=== PATIENT | male | born 1960 | race Caucasian/White ===

== ENCOUNTER 2017-02-07 20:31 | Emergency (ER) | payer SELFPAY ==
[~2017-02-07] VITALS: Ht 172.7 cm; Wt 90.7 kg
[~2017-02-07 20:31] MED LIST: ACYC200C PO; CYCL10TA9 PO; NAPR-243 PO; OXYC-12 PO; PRD20T PO; SULF1TAB35 PO; TRM50T PO
--- NOTE | 2017-02-07 21:00 | ED General ---
General Chief Complaint: General Problems/Pain Stated Complaint: GENERAL SWELLING Nursing Triage Note: patient reports he has been swelling in his feet and hands for a month Nursing Sepsis Screen: No Definite Risk Source of Information: Patient Exam Limitations: No Limitations History of Present Illness Time Seen by Provider: 20:59 Initial Comments Ambulatory to ER with reports of a 3 month history of swelling to the hands and the feet. He has not sought care for this. States that he hasn't seen his physician in several years because he is homeless. He is also an alcoholic he states drinking about a 12-24 pack daily. He also smokes one and 2 packs of cigarettes per day. Reports chronic shortness of breath and wheezing. Timing/Duration: Getting Worse Severity: Moderate Associated Systoms: Cough Allergies and Home Medications Allergies Coded Allergies: NKANo Known Allergies (Unverified Allergy, Mild, 09/13/09) Home Medications No Active Prescriptions or Reported Meds Constitutional: see HPI, No chills, No fever EENTM: see HPI Respiratory: no symptoms reported Cardiovascular: no symptoms reported Genitourinary: no symptoms reported Musculoskeletal: no symptoms reported Skin: no symptoms reported Psychiatric/Neurological: No Symptoms Reported Hematologic/Lymphatic: No Symptoms Reported Immunological/Allergic: no symptoms reported Past Dgvwtjr-Tladac-Sxgwki Hx Patient Social History Alcohol Use: Regular Use Recreational Drug Use: Yes Drug of Choice: THC Smoking Status: Current Everyday Smoker Type Used: Cigarettes Recent Foreign Travel: No Contact w/Someone Who Travel: No Recent Infectious Disease Expo: No Seasonal Allergies Seasonal Allergies: No Surgeries HX Surgeries: No Respiratory Hx Respiratory Disorders: No Cardiovascular Hx Cardiac Disorders: No Cardiac Disorders: Hypertension Neurological Hx Neurological Disorders: No Reproductive System Hx Reproductive Disorders: No Genitourinary Hx Genitourinary Disorders: No Gastrointestinal Hx Gastrointestinal Disorders: No Musculoskeletal Hx Musculoskeletal Disorders: No Endocrine Hx Endocrine Disorders: No HEENT HX ENT Disorders: No Cancer Hx Cancer: No Psychosocial Hx Psychiatric Problems: No Integumentary HX Skin/Integumentary Disorder: No Blood Transfusions Hx Blood Disorders: No Family Medical History Significant Family History: No Pertinent Family Hx Physical Exam Vital Signs Vital Sign - Last 12Hours 02/07/17 20:42 Temp 98.2 Pulse 97 Resp 18 B/P (MAP) 144/123 Pulse Ox 94 O2 Delivery Room Air Capillary Refill : Less Than 3 Seconds General Appearance: No Apparent Distress, WD/WN Eyes: Bilateral Eye EOMI, Bilateral Eye Normal Inspection, Bilateral Eye PERRL HEENT: PERRL/EOMI, TMs Normal Neck: Full Range of Motion, Normal Inspection Respiratory: No Accessory Muscle Use, No Respiratory Distress, Decreased Breath Sounds, Wheezing Cardiovascular: Regular Rate, Rhythm, Normal Peripheral Pulses Gastrointestinal: Normal Bowel Sounds, Non Tender, Soft Extremity: Normal Capillary Refill, Normal Inspection, Swelling (3+ swelling to the proximal tibias bilateral lower extremities. There is also some puffiness of the hands.) Neurologic/Psychiatric: Alert, Oriented x3, No Motor/Sensory Deficits Skin: Warm/Dry Progress/Results/Core Measures Results/Orders Lab Results Laboratory Tests Test 02/07/17 20:53 02/07/17 21:58 Range/Units White Blood Count 7.6 4.3-11.0 10^3/uL Red Blood Count 4.51 4.35-5.85 10^6/uL Hemoglobin 14.8 13.3-17.7 G/DL Hematocrit 44 40-54 % Mean Corpuscular Volume 97 80-99 FL Mean Corpuscular Hemoglobin 33 25-34 PG Mean Corpuscular Hemoglobin Concent 34 32-36 G/DL Red Cell Distribution Width 14.4 10.0-14.5 % Platelet Count 173 130-400 10^3/uL Mean Platelet Volume 9.4 7.4-10.4 FL Neutrophils (%) (Auto) 28 L 42-75 % Lymphocytes (%) (Auto) 54 H 12-44 % Monocytes (%) (Auto) 14 H 0-12 % Eosinophils (%) (Auto) 4 0-10 % Basophils (%) (Auto) 0 0-10 % Neutrophils # (Auto) 2.1 1.8-7.8 X 10^3 Lymphocytes # (Auto) 4.1 H 1.0-4.0 X 10^3 Monocytes # (Auto) 1.1 H 0.0-1.0 X 10^3 Eosinophils # (Auto) 0.3 0.0-0.3 10^3/uL Basophils # (Auto) 0.0 0.0-0.1 10^3/uL Neutrophils % (Manual) 21 % Lymphocytes % (Manual) 63 % Monocytes % (Manual) 10 % Eosinophils % (Manual) 3 % Basophils % (Manual) 0 % Metamyelocytes % 1 % Band Neutrophils 2 % Blood Morphology Comment NORMAL Sodium Level 136 135-145 MMOL/L Potassium Level 3.5 L 3.6-5.0 MMOL/L Chloride Level 104 98-107 MMOL/L Carbon Dioxide Level 18 L 21-32 MMOL/L Anion Gap 14 5-14 MMOL/L Blood Urea Nitrogen 5 L 7-18 MG/DL Creatinine 0.83 0.60-1.30 MG/DL Estimat Glomerular Filtration Rate > 60 BUN/Creatinine Ratio 6 Glucose Level 98 70-105 MG/DL Calcium Level 8.6 8.5-10.1 MG/DL Total Bilirubin 0.4 0.1-1.0 MG/DL Aspartate Amino Transf (AST/SGOT) 47 H 5-34 U/L Alanine Aminotransferase (ALT/SGPT) 31 0-55 U/L Alkaline Phosphatase 87 40-136 U/L Troponin I < 0.30 <0.30 NG/ML B-Type Natriuretic Peptide 30.2 <100.0 PG/ML Total Protein 8.1 6.4-8.2 GM/DL Albumin 3.8 3.2-4.5 GM/DL Thyroid Stimulating Hormone (TSH) 2.86 0.35-4.94 UIU/ML Serum Alcohol 263 H <10 MG/DL My Orders Orders - WILLIAM ALLEN 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 [employer] INSPECTING Cbc With Automated Diff (02/07/17 20:53) Comprehensive Metabolic Panel (02/07/17 20:53) Alcohol (02/07/17 20:53) Protime With Inr (02/07/17 20:53) Drug Screen Stat (Urine) (02/07/17 20:53) Ekg Tracing (02/07/17 20:53) Troponin I (02/07/17 20:53) Chest 1 View, Ap/Pa Only (02/07/17 20:53) Thyroid Stimulating Hormone (02/07/17 20:53) Manual Differential (02/07/17 20:53) Albuterol/Ipra Inhalation Soln (Duoneb I (02/07/17 21:15) Svn Sm Volume Nebulizer Rt-Rfs (02/07/17 21:14) BNP (02/07/17 21:34) Medications Given in ED Current Medications Medications Dose Ordered Sig/[place] Route Start Time Stop Time Status Last Admin Dose Admin Albuterol/ Ipratropium 3 ml ONCE ONCE INH 02/07/17 21:15 02/07/17 21:16 DC 02/07/17 21:47 3 ML Vital Signs/I&O Vital Sign - Last 12Hours 02/07/17 02/07/17 20:42 21:48 Temp 98.2 Pulse 97 Resp 18 B/P (MAP) 144/123 Pulse Ox 94 95 O2 Delivery Room Air Room Air Blood Pressure Mean: 130 Diagnostic Imaging Diagonstic Imaging: Xray Plain Films/CT/US/NM/MRI: chest Comments NAME: ERYN WOMACK MED REC#: [id number] PT STATUS: REG ER : 1960 PHYSICIAN: WILLIAM ALLEN APRN ADMIT DATE: 02/07/17/ER Draft Date of Exam:02/07/17 CHEST 1 VIEW, AP/PA ONLY INDICATION: Swelling in the hands and feet FINDINGS: The heart size is unremarkable. There is no vascular congestion. There is no evidence for pulmonary edema. No effusion or pneumothorax. No focal consolidation. IMPRESSION: No failure pattern or acute abnormalities Dictated on workstation # [id number] Dict: 02/07/172114 Trans: 02/07/172120 [facility] [id number] Interpreted by: LEDY BAER Electronically signed by: Departure Impression Impression: Primary Impression: Edema Additional Impression: Alcoholism Disposition: 01 HOME, SELF-CARE Condition: Stable Departure-Patient Inst. Decision time for Depature: 22:17 Referrals: NO,LOCAL PHYSICIAN (PCP) Primary Care Physician Patient Instructions: NO INSTRUCTIONS GIVEN Add. Discharge Instructions: 1. Follow-up with your doctor next week 2. All discharge instructions reviewed with patient and/or family. Voiced understanding. Scripts No Active Prescriptions or Reported Meds WILLIAM ALLEN APRN Feb 07, 2017 21:00
[2017-02-07 21:03] LABS: BASOPHILS % (AUTO) 0 % (0-10); EOSINOPHILS # (AUTO) 0.3 10^3/uL (0.0-0.3); EOSINOPHILS % (AUTO) 4 % (0-10); LYMPHOCYTES # (AUTO) 4.1 X 10^3 (1.0-4.0); LYMPHOCYTES % (AUTO) 54 % (12-44); MEAN CORPUSCULAR HEMOGLOBIN 33 PG (25-34); MEAN CORPUSCULAR HGB CONC 34 G/DL (32-36); MEAN CORPUSCULAR VOLUME 97 FL (80-99); MEAN PLATELET VOLUME 9.4 FL (7.4-10.4); MONOCYTES # (AUTO) 1.1 X 10^3 (0.0-1.0); MONOCYTES % (AUTO) 14 % (0-12); NEUTROPHILS # (AUTO) 2.1 X 10^3 (1.8-7.8); NEUTROPHILS % (AUTO) 28 % (42-75); PLATELET COUNT 173 10^3/uL (130-400); RED BLOOD COUNT 4.51 10^6/uL (4.35-5.85); RED CELL DISTRIBUTION WIDTH 14.4 % (10.0-14.5); WHITE BLOOD COUNT 7.6 10^3/uL (4.3-11.0)
[2017-02-07 21:12] LABS: PROTHROMBIN TIME PATIENT 12.9 SEC (12.2-14.7)
[2017-02-07] MEDS ORDERED: RT-ALBUTEROL/IPRATROPIUM 3 ML (DUONEB) VIAL INH ONE (21:15)
--- NOTE | 2017-02-07 21:21 | Diagnostic Imaging Report ---
INDICATION: Swelling in the hands and feet FINDINGS: The heart size is unremarkable. There is no vascular congestion. There is no evidence for pulmonary edema. No effusion or pneumothorax. No focal consolidation. IMPRESSION: No failure pattern or acute abnormalities Dictated by: Dictated on workstation # [id number]
[2017-02-07 21:22] LABS: ALANINE AMINOTRANSFERASE 31 U/L (0-55); ALBUMIN 3.8 GM/DL (3.2-4.5); ALCOHOL 263 MG/DL (<10); ANION GAP 14 MMOL/L (5-14); ASPARTATE AMINO TRANSFERASE 47 U/L (5-34); BILIRUBIN,TOTAL 0.4 MG/DL (0.1-1.0); BLOOD UREA NITROGEN 5 MG/DL (7-18); BUN/CREATININE RATIO 6; CALCIUM 8.6 MG/DL (8.5-10.1); CARBON DIOXIDE 18 MMOL/L (21-32); CHLORIDE 104 MMOL/L (98-107); CREATININE SERUM 0.83 MG/DL (0.60-1.30); GFR ESTIMATED > 60; GLUCOSE 98 MG/DL (70-105); POTASSIUM 3.5 MMOL/L (3.6-5.0); SODIUM 136 MMOL/L (135-145); TOTAL PROTEIN 8.1 GM/DL (6.4-8.2)
[2017-02-07 21:24] LABS: BAND NEUTROPHILS 2 %; BASOPHILS % (MANUAL) 0 %; EOSINOPHILS % (MANUAL) 3 %; LYMPHOCYTES % (MANUAL) 63 %; METAMYELOCYTES % 1 %; NEUTROPHILS % (MANUAL) 21 %
[2017-02-07 21:44] LABS: THYROID STIMULATING HORMONE 2.86 UIU/ML (0.35-4.94)
[2017-02-07 21:48] LABS: TROPONIN I < 0.30 NG/ML (<0.30)
[2017-02-07 22:22] VITALS: BP 138/105
== END 2017-02-07 22:22 | disposition home or self-care (01) ==
LOC: EDUNIT# 20:31 → ER 20:35
DX: R60.0 Localized edema (principal); F10.20 Alcohol dependence, uncomplicated; I10 Essential (primary) hypertension; F17.210 Nicotine dependence, cigarettes, uncomplicated
CPT/HCPCS: 36415; 71010; 80053; 80306; 80320; 83880; 84443; 84484; 85007; 85027; 85610; 93005; 94640

== ENCOUNTER 2018-03-29 05:28 | Outpatient (CLI) | payer SELFPAY ==
[~2018-03-29] VITALS: Ht 172.7 cm; Wt 102.5 kg
[2018-03-29] MEDS ORDERED: PRED5TAB PO (10:55)
[2018-03-29] MEDS ORDERED: METH2.5T PO (10:55)
[2018-03-29] MEDS ORDERED: FOLI0.8T PO (10:55)
[2018-03-31] MEDS ORDERED: HYDR-3820 PO (10:49)
== END 2018-03-29 12:41 | disposition home or self-care (01) ==
LOC: PREOP 05:28
PROVIDERS: ATTEND Surgery
DX: Z01.818 Encounter for other preprocedural examination (principal)

== ENCOUNTER 2018-03-31 08:06 | Day surgery (SDC) | payer SELFPAY ==
[~2018-03-31] VITALS: Ht 172.7 cm; Wt 102.5 kg
[~2018-03-31 08:06] MED LIST changes: +FOLI0.8T PO; +METH2.5T PO; +PRED5TAB PO
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
--- OUTSIDE RECORDS SUMMARY | 2018-03-31 08:10 | XMS REPORT ---
Author Author EDEN HOWELL Organization [facility] Address [address] [place] [address] Care Team Providers Care Financial Analyst Name Role Phone EDEN HOWELL Unavailable PROBLEMS Type Condition ICD9-CM Code OJS82-YM Code Onset Dates Condition Status SNOMED Code Problem Arthritis M19.90 Active 0862420 Problem Rheumatoid arthritis involving multiple sites with positive rheumatoid factor M05.79 Active 469994785 Problem Alcoholism F10.20 Active 0749297 Problem Hypertension I10 Active 17642165 Problem Osteoarthritis M19.90 Active 888170105 ALLERGIES No Information ENCOUNTERS Encounter Location Date Diagnosis [facility] [id number] [place] [address] 47955- 4841 Dec, Rheumatoid arthritis involving multiple sites with positive rheumatoid factor M05.79 [facility] [id number] [place] [address] 89587- 3247 Dec, Arthritis M19.90 [facility] [id number] [place] [address] 99533- 2375 November, [facility] [id number] [place] [address] 36956- 3881 Oct, [facility] [id number] [place] [address] 56847- 8739 Sep, [facility] [id number] [place] [address] 18521- 6198 Aug, Rheumatoid arthritis involving multiple sites with positive rheumatoid factor M05.79 [facility] [id number] [place] [address] 34137- 0095 Jul, Rheumatoid arthritis involving multiple sites with positive rheumatoid factor M05.79 and Alcoholism F10.20 [facility] [id number] [place] [address] 41250- 2884 Jun, [facility] [id number] [place] [address] 08992- 9946 May, Alcoholism F10.20 ; Hypertension I10 ; Rheumatoid arthritis involving multiple sites with positive rheumatoid factor M05.79 and Encounter for immunization Z23 [place] [id number] [place] [address] 76107- 3606 Apr, Rheumatoid arthritis involving multiple sites, unspecified rheumatoid factor presence M06.9 and Hypertension I10 [place] [address] 31723- 6300 Feb, [place] [address] 05758- 4698 Feb, Hypertension I10 ; Rheumatoid arthritis involving multiple sites, unspecified rheumatoid factor presence M06.9 and Alcoholism F10.20 [facility] [id number] [place] [address] 04866 -4275 Jan, Lower extremity edema R60.0 and Cellulitis of left lower limb L03.116 [place] [id number] [place] [address] 94970- 1259 Aug, [facility] [id number] [place] [address] 38745- 2118 Aug, [place] [id number] [place] [address] 60148- 5163 Aug, Osteoarthritis M19.90 ; Hypertension I10 and Alcoholism F10.20 [facility] [id number] [place] [address] 59779- 0309 Jan, [facility] [address] 77141- 5668 Dec, Herpes zoster 053.9 [facility] [id number] [place] [address] 22698- 8293 Mar, [place] [address] 28281- 6706 Mar, [facility] [address] [facility] [id number] [place] [address]- 9356 Dec, [facility] [address] [facility] [id number] [address]- 6396 Dec, IMMUNIZATIONS No Known Immunizations SOCIAL HISTORY Never Assessed REASON FOR VISIT Rx request PLAN OF CARE VITAL SIGNS MEDICATIONS Unknown [...]
--- OUTSIDE RECORDS SUMMARY | 2018-03-31 08:10 | XMS REPORT ---
Author Author EDEN HOWELL Organization [facility] [place] Address [address] [place] [address] Care Team Providers Care Integration Lead Name Role Phone EDEN HOWELL Unavailable PROBLEMS Type Condition ICD9-CM Code GCP76-CN Code Onset Dates Condition Status SNOMED Code Problem Arthritis M19.90 Active 7207373 Problem Rheumatoid arthritis involving multiple sites with positive rheumatoid factor M05.79 Active 602218958 Problem Alcoholism F10.20 Active 5584323 Problem Hypertension I10 Active 11856748 Problem Osteoarthritis M19.90 Active 919578558 ALLERGIES No Information ENCOUNTERS Encounter Location Date Diagnosis [facility] [place] [id number] [place] [address] 20469- 6891 Jan, [facility] [place] [id number] [place] [address] 79736- 8572 Dec, Rheumatoid arthritis involving multiple sites with positive rheumatoid factor M05.79 [facility] [place] [id number] [place] [address] 32778- 5556 Dec, Arthritis M19.90 [facility] [place] [id number], [place] [address]- 2914 November, [facility] [place] [id number] [place] [address] 99171- 3105 Oct, [facility] [place] [address] [place] [address] 65396- 4817 Sep, [facility] [place] [id number] [place] [address] 59483- 9878 Aug, Rheumatoid arthritis involving multiple sites with positive rheumatoid factor M05.79 [facility] [place] [id number], [place] [address]- 4335 Jul, Rheumatoid arthritis involving multiple sites with positive rheumatoid factor M05.79 and Alcoholism F10.20 [facility] [place] [id number] [place] [address] 77851- 9518 Jun, [facility] [place] [address]- 2655 May, Alcoholism F10.20 ; Hypertension I10 ; Rheumatoid arthritis involving multiple sites with positive rheumatoid factor M05.79 and Encounter for immunization Z23 [place] [address] 86195- 9422 Apr, Rheumatoid arthritis involving multiple sites, unspecified rheumatoid factor presence M06.9 and Hypertension I10 [place] [address] 50333- 5314 Feb, [place] [address] 07768- 6580 Feb, Hypertension I10 ; Rheumatoid arthritis involving multiple sites, unspecified rheumatoid factor presence M06.9 and Alcoholism F10.20 [facility] [id number] [place] [address] 01877 -4159 Jan, Lower extremity edema R60.0 and Cellulitis of left lower limb L03.116 [place] [id number] [place] [address] 74924- 7700 Aug, [facility] [place] [id number] [place] [address] 61077- 7264 Aug, [place] [address] 90295- 2078 Aug, Osteoarthritis M19.90 ; Hypertension I10 and Alcoholism F10.20 [facility] [place] [address] 04734- 5130 Jan, [facility] [place] [address] 02127- 6351 Dec, Herpes zoster 053.9 [place] [address] 28278- 2976 Mar, [facility] [place] [address] [facility] [id number] [address]- 2546 Mar, [facility] [place] [address] [facility] [id number] [address]- 2576 Dec, [facility] [place] [address] [facility] [id number] [place] [address]- 7816 Dec, IMMUNIZATIONS No Known Immunizations SOCIAL HISTORY Never Assessed REASON FOR VISIT Repository med PLAN OF CARE VITAL SIGNS MEDICATIONS Unknown [...]
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
--- OUTSIDE RECORDS SUMMARY | 2018-03-31 08:11 | XMS REPORT | Continuity of Care Document ---
Author Author [facility] Address Unknown Phone Unavailable Allergies Active Description Code Type Severity Reaction Onset Reported/Identified Relationship to Patient Clinical Status Yes NKANo Known Allergies NKA Miscellaneous Allergy Mild N/A 09/13/2009 Medications There is no data. Problems Date Dx Coded Attending Type Code Diagnosis Diagnosed By 02/22/2014 JANELL STINSON Ot 305.00 ALCOHOL ABUSE-UNSPEC 02/22/2014 JANELL STINSON Ot 305.90 DRUG ABUSE NEC-UNSPEC 02/22/2014 JANELL STINSON Ot 338.29 OTHER CHRONIC PAIN 02/22/2014 JANELL STINSON Ot 724.2 LUMBAGO 01/12/2015 JANELL STINSON Ot 053.9 HERPES ZOSTER NOS 01/12/2015 JANELL STINSON Ot 782.1 NONSPECIF SKIN ERUPT NEC 03/02/2016 GABRIELLA FIELDS DO Ot S01.81XA LACERATION W/O FOREIGN BODY OF OTH PART 03/02/2016 GABRIELLA FIELDS DO Ot Z53.21 PROC/TRTMT NOT CRD OUT D/T PT LV BEF SEE 03/05/2016 GABRIELLA FIELDS DO Ot S01.81XA LACERATION W/O FOREIGN BODY OF OTH PART 03/05/2016 GABRIELLA FIELDS DO Ot Z53.21 PROC/TRTMT NOT CRD OUT D/T PT LV BEF SEE 02/07/2017 WILLIAM ALLEN APRN Ot F10.20 ALCOHOL DEPENDENCE, UNCOMPLICATED 02/07/2017 WILLIAM ALLEN APRN Ot F17.210 NICOTINE DEPENDENCE, CIGARETTES, UNCOMPL 02/07/2017 WILLIAM ALLEN APRN Ot I10 ESSENTIAL (PRIMARY) HYPERTENSION 02/07/2017 WILLIAM ALLEN APRN Ot M79.89 OTHER SPECIFIED SOFT TISSUE DISORDERS 02/07/2017 WILLIAM ALLEN APRN Ot R60.0 LOCALIZED EDEMA 03/29/2018 Ot Z01.818 ENCOUNTER FOR OTHER PREPROCEDURAL EXAMIN Procedures There is no data. Results Test Result Range Complete blood count (CBC) with automated white blood cell (WBC) differential - 02/07/17 20:53 Blood leukocytes automated count (number/volume) 7.6 10*3/uL 4.3-11.0 Blood erythrocytes automated count (number/volume) 4.51 10*6/uL 4.35-5.85 Venous blood hemoglobin measurement (mass/volume) 14.8 g/dL 13.3-17.7 Blood hematocrit (volume fraction) 44 % 40-54 Automated erythrocyte mean corpuscular volume 97 [foz_us] 80-99 Automated erythrocyte mean corpuscular hemoglobin (mass per erythrocyte) 33 pg 25-34 Automated erythrocyte mean corpuscular hemoglobin concentration measurement ( mass/volume) 34 g/dL 32-36 Automated erythrocyte distribution width ratio 14.4 % 10.0-14.5 Automated blood platelet count (count/volume) 173 10*3/uL 130-400 Automated blood platelet mean volume measurement 9.4 [foz_us] 7.4-10.4 Automated blood neutrophils/100 leukocytes 28 % 42-75 Automated blood lymphocytes/100 leukocytes 54 % 12-44 Blood monocytes/100 leukocytes 14 % 0-12 Automated blood eosinophils/100 leukocytes 4 % 0-10 Automated blood basophils/100 leukocytes 0 % 0-10 Blood neutrophils automated count (number/volume) 2.1 10*3 1.8-7.8 Blood lymphocytes automated count (number/volume) 4.1 10*3 1.0-4.0 Blood monocytes automated count (number/volume) 1.1 10*3 0.0-1.0 Automated eosinophil count 0.3 10*3/uL 0.0-0.3 Automated blood basophil count (count/volume) 0.0 10*3/uL 0.0-0.1 Comprehensive metabolic panel - 02/07/17 20:53 Serum or plasma sodium measurement (moles/volume) 136 mmol/L 135-145 Serum or plasma potassium measurement (moles/volume) 3.5 mmol/L 3.6-5.0 Serum or plasma chloride measurement (moles/volume) 104 mmol/L 98-107 Carbon dioxide 18 mmol/L 21-32 Serum or plasma anion gap determination (moles/volume) 14 mmol/L 5-14 Serum or plasma urea nitrogen measurement (mass/volume) 5 mg/dL 7-18 Serum or plasma creatinine measurement (mass/volume) 0.83 mg/dL 0.60-1.30 Serum or plasma urea nitrogen/creatinine mass ratio 6 NRG Serum or plasma creatinine measurement with calculation of estimated glomerular filtration rate > NRG Serum or plasma glucose measurement (mass/volume) 98 mg/dL 70-105 Serum or plasma calcium measurement (mass/volume) 8.6 mg/dL 8.5-10.1 Serum or plasma total bilirubin measurement (mass/volume) 0.4 mg/dL 0.1-1.0 Serum or plasma alkaline phosphatase measurement (enzymatic activity/volume) 87 U/L 40-136 Serum or plasma aspartate aminotransferase measurement (enzymatic activity/ volume) 47 U/L 5-34 Serum or plasma alanine aminotransferase measurement (enzymatic activity/volume ) 31 U/L 0-55 Serum or plasma protein measurement (mass/volume) 8.1 g/dL 6.4-8.2 Serum or plasma albumin measurement (mass/volume) 3.8 g/dL 3.2-4.5 Serum or plasma troponin i.cardiac measurement (mass/volume) - 02/07/17 20:53 Serum or plasma troponin i.cardiac measurement (mass/volume) < ng/ mL <0.30 Blood manual differential performed detection - 02/07/17 20:53 Blood monocytes/100 leukocytes 10 % NRG Manual blood segmented neutrophils/100 leukocytes 21 % NRG Blood band neutrophils/100 leukocytes 2 % NRG Manual blood lymphocytes/100 leukocytes 63 % NRG Manual eosinophils/100 leukocytes in nose 3 % NRG Manual blood basophils/100 leukocytes 0 % NRG Blood erythrocyte morphology finding identification NORMAL NR Manual blood metamyelocytes/100 leukocytes 1 % NRG THYROID STIMULATING HORMONE - 02/07/17 20:53 THYROID STIMULATING HORMONE 2.86 u[iU]/mL 0.35-4.94 Serum or plasma ethanol measurement (mass/volume) - 02/07/17 20:53 Serum or plasma ethanol measurement (mass/volume) 263 mg/dL <10 Serum or plasma lithium measurement (moles/volume) - 02/07/17 20:53 BNP level 30.2 pg/mL <100.0 PT panel in platelet poor plasma by coagulation assay - 02/07/17 20:53 Prothrombin time (PT) in platelet poor plasma by coagulation assay 12.9 s 12.2-14.7 INR in platelet poor plasma or blood by coagulation assay 1.0 0.8-1.4 Urine drug screening test - 02/07/17 21:58 Urine phencyclidine detection by screening method NEGATIVE NEGATIVE Urine benzodiazepines detection by screening method NEGATIVE NEGATIVE Urine cocaine detection NEGATIVE NEGATIVE Urine amphetamines detection by screening method NEGATIVE NEGATIVE Urine methamphetamine detection by screening method NEGATIVE NEGATIVE Urine cannabinoids detection by screening method NEGATIVE NEGATIVE Urine opiates detection by screening method NEGATIVE NEGATIVE Urine barbiturates detection NEGATIVE NEGATIVE Screening urine tricyclic antidepressants detection NEGATIVE NEGATIVE Urine methadone detection by screening method NEGATIVE NEGATIVE Urine oxycodone detection NEGATIVE NEGATIVE Urine propoxyphene detection NEGATIVE NEGATIVE CMP - 03/09/17 18:24 Glucose, Serum 90 mg/dL 65-99 BUN 6 mg/dL 6-24 Creatinine, Serum 0.77 mg/dL 0.76-1.27 eGFR If NonAfricn Am 101 mL/min/1.73 >59 eGFR If Africn Am 117 mL/min/1.73 >59 BUN/Creatinine Ratio 8 9-20 Sodium, Serum 136 mmol/L 134-144 Potassium, Serum 3.8 mmol/L 3.5-5.2 Chloride, Serum 96 mmol/L 96-106 Carbon Dioxide, Total 19 mmol/L 18-29 Calcium, Serum 8.8 mg/dL 8.7-10.2 Protein, Total, Serum 7.5 g/dL 6.0-8.5 Albumin, Serum 4.0 g/dL 3.5-5.5 Globulin, Total 3.5 g/dL 1.5-4.5 A/G Ratio 1.1 1.2-2.2 Bilirubin, Total 0.3 mg/dL 0.0-1.2 Alkaline Phosphatase, S 88 IU/L 39-117 AST (SGOT) 49 IU/L 0-40 ALT (SGPT) 33 IU/L 0-44 CBC With Differential/Platelet - 03/09/17 18:24 WBC 5.9 x10E3/uL 3.4-10.8 RBC 4.36 x10E6/uL 4.14-5.80 Hemoglobin 14.2 g/dL 12.6-17.7 Hematocrit 42.5 % 37.5-51.0 MCV 98 fL 79-97 MCH 32.6 pg 26.6-33.0 MCHC 33.4 g/dL 31.5-35.7 RDW 14.4 % 12.3-15.4 Platelets 166 x10E3/uL 150-379 Neutrophils 36 % Lymphs 50 % Monocytes 10 % Eos 4 % Basos 0 % Neutrophils (Absolute) 2.1 x10E3/uL 1.4-7.0 Lymphs (Absolute) 2.9 x10E3/uL 0.7-3.1 Monocytes(Absolute) 0.6 x10E3/uL 0.1-0.9 Eos (Absolute) 0.3 x10E3/uL 0.0-0.4 Baso (Absolute) 0.0 x10E3/uL 0.0-0.2 Immature Granulocytes 0 % Immature Grans (Abs) 0.0 x10E3/uL 0.0-0.1 Comp. Metabolic Panel (14) - 03/09/17 18:24 Glucose, Serum 90 mg/dL 65-99 BUN 6 mg/dL 6-24 Creatinine, Serum 0.77 mg/dL 0.76-1.27 eGFR If NonAfricn Am 101 mL/min/1.73 >59 eGFR If Africn Am 117 mL/min/1.73 >59 BUN/Creatinine Ratio 8 9-20 Sodium, Serum 136 mmol/L 134-144 Potassium, Serum 3.8 mmol/L 3.5-5.2 Chloride, Serum 96 mmol/L 96-106 Carbon Dioxide, Total 19 mmol/L 18-29 Calcium, Serum 8.8 mg/dL 8.7-10.2 Protein, Total, Serum 7.5 g/dL 6.0-8.5 Albumin, Serum 4.0 g/dL 3.5-5.5 Globulin, Total 3.5 g/dL 1.5-4.5 A/G Ratio 1.1 1.2-2.2 Bilirubin, Total 0.3 mg/dL 0.0-1.2 Alkaline Phosphatase, S 88 IU/L 39-117 AST (SGOT) 49 IU/L 0-40 ALT (SGPT) 33 IU/L 0-44 Rheumatoid Arthritis Factor - 03/09/17 18:24 RA Latex Turbid. 449.4 IU/mL 0.0-13.9 C-Reactive Protein, Quant - 03/09/17 18:24 C-Reactive Protein, Quant 9.0 mg/L 0.0-4.9 Antinuclear Antibodies, IFA - 03/09/17 18:24 Antinuclear Antibodies, IFA Negative DIFFERENTIAL, MANUAL - 02/17/18 13:43 ABSOLUTE NEUTROPHILS 2067 cells/uL 9654-6236 ABSOLUTE MONOCYTES 551 cells/uL 200-950 ABSOLUTE EOSINOPHILS 38 cells/uL 15-500 ABSOLUTE BASOPHILS 0 cells/uL 0-200 NEUTROPHILS 54.4 % NRG LYMPHOCYTES 29.1 % NRG MONOCYTES 14.5 % NRG EOSINOPHILS 1.0 % NRG BASOPHILS 0 % NRG ABSOLUTE BAND NEUTROPHILS 38 cells/uL 0-750 ABSOLUTE LYMPHOCYTES 1106 cells/uL 850-3900 BAND NEUTROPHILS 1.0 % NRG PLATELET ESTIMATION DECREASED ADEQUATE AMMONIA - 02/17/18 13:43 AMMONIA (P) 65 umol/L < OR=47 Encounters ACCT No. Visit Date/Time Discharge Status Pt. Type Provider Facility Loc./Unit Complaint [id number] 12/03/2011 10:19:00 12/03/2011 23:59:59 CLS Outpatient GABRIELLA MAHAJAN APRN [id number] 02/17/2018 12:40:00 02/17/2018 23:59:59 CLS Outpatient EDEN KIDD MD [facility] [id number] 02/17/2018 12:40:00 Document Registration [id number] 03/09/2017 17:20:00 Document Registration [id number] 02/07/2017 20:35:00 02/07/2017 22:22:00 DIS Emergency WILLIAM ALLEN APRN [facility] ER GENERAL SWELLING [id number] 03/02/2016 19:13:00 03/02/2016 19:24:00 DIS Emergency GABRIELLA FIELDS DO [facility] ER R EYE LAC [id number] 01/12/2015 16:07:00 01/12/2015 17:03:00 DIS Emergency JANELL STINSON [facility] ER RASH [id number] 02/22/2014 12:14:00 02/22/2014 14:20:00 DIS Emergency JANELL STINSON [facility] ER BACK PAIN [id number] 03/31/2018 08:06:00 ACT Outpatient KOBE GARZA DO [facility] SDC MASS RIGHT CHEEK [id number] 03/29/2018 05:28:00 Document Registration [id number] 03/11/2017 18:09:00 Document Registration
[2018-03-31] MEDS ORDERED: LACTATED RINGERS 1,000 ML IV PRN (08:14)
[2018-03-31 08:15] VITALS: BP 149/113
[2018-03-31] MEDS ORDERED: ceFAZolin 2 GM IV Premixed 50 ML IV ONE (08:15)
[2018-03-31] MEDS ORDERED: fentaNYL INJECTION 100 MCG/2 ML AMP ONE ×2 (08:33→09:55)
[2018-03-31] MEDS ORDERED: RT-ALBUTEROL SULF 2.5 MG/3 ML PRE-MIX VIAL INH ONE (08:45)
[2018-03-31] MEDS ORDERED: fentaNYL INJECTION 100 MCG/2 ML AMP IV ONE (08:45)
--- NOTE | 2018-03-31 09:19 | Progress Note-Pre Operative ---
Pre-Operative Progress Note H&P Reviewed The H&P was reviewed, patient examined and no changes noted. Time Seen by Provider: 09:13 Date H&P Reviewed: Mar 31, 2018 Time H&P Reviewed: 09:15 Pre-Operative Diagnosis: right cheek mass KOBE GARZA DO Mar 31, 2018 09:19
[2018-03-31] MEDS ORDERED: proPOfol 200 MG/20 ML (DIPRIVAN) VIAL IV ONE ×2 (09:55→10:35)
[2018-03-31] MEDS ORDERED: LACTATED RINGERS 1,000 ML IV ONE (09:55)
[2018-03-31] MEDS ORDERED: ONDANSETRON 4 MG/2 ML (SDV) Z0FRAN ONE (09:55)
[2018-03-31] MEDS ORDERED: LIDOCAINE PF 2% 2 ML (XYLOCAINE) VIAL ONE ×2 (09:55→10:04)
[2018-03-31] MEDS ORDERED: MIDAZOLAM 2 MG/2 ML (VERSED) VIAL ONE (09:55)
[2018-03-31] MEDS ORDERED: LIDOCAINE/EPI 1%-1:200,000 (XYLOCAINE) 10 ML VIAL ONE (09:57)
[2018-03-31] MEDS ORDERED: DEXAMETHASONE 10 MG/ML (DECADRON) 1 ML VIAL ONE (10:08)
[2018-03-31] MEDS ORDERED: SEVOFLURANE (ULTANE) 15 ML INHAL SOLN ONE ×4 (10:08→10:37)
[2018-03-31] MEDS ORDERED: PHENYLEPHRINE 100 MCG/ML 10 ML (ANESTHESIA) SYR ONE (10:40)
[2018-03-31] MEDS ORDERED: HYDR-3820 PO (10:49)
--- NOTE | 2018-03-31 10:49 | Progress Note-Post Operative ---
Post-Operative Progess Note Surgeon (s)/Instructional Design Technologist (s) Surgeon KOBE GARZA DO Instructional Design Technologist: CECILIO Mendosa Pre-Operative Diagnosis right cheek mass Post-Operative Diagnosis same pending path, probable sebaceous cyst Procedure & Operative Findings Date of Procedure 03/31/18 Procedure Performed/Findings Exc right cheek mass, 3.6 cm incision down to ms Anesthesia Type GET Estimated Blood Loss Estimated blood loss (mL): scant Specimens/Packing Specimens Removed appx 5cm diameter mass KOBE GARZA DO Mar 31, 2018 10:49
--- NOTE | 2018-03-31 10:51 | Discharge Inst-Surgical ---
Discharge Inst-Surgical Depart Medication/Instructions New, Converted or Re-Newed RX: RX Given to Pt/Family Patient Instructions Follow up Appt: Make appointment for 1 week. Instructions: No strenuous activity. May shower in 24 hours, no tub bath or soaking. Use incentive spirometer at home as directed. No Smoking Skin/Wound Care: May remove bandages in am. You need to leave the Dermabond on over incision it will fall off on its own. Symptoms to Report: Appetite Changes, Extremity Discoloration, Numbness/Tingling, Swelling Increased , Bleeding Excessive, Eyesight Changes, Pain Increased, Urine Color Change, Constipation(Persistent), Fever over 101 degree F, Pain/Pressure in chest, Urinating Difficulty, Cough Up/Vomit Blood, Heart Beat Irreg/Pounding, Pain/ Pressure in jaw, Cramps in feet or legs, Lightheadedness, Pain/Pressure in shoulder, Diarrhea(Persistent), Memory Changes Suddenly, Questions/Concerns, Weight gain consecutive days, Dizziness/Fainting, Nausea/Vomiting, Shortness of Breath, Weight gain over 2 pounds If questions or concerns contact your physician Or seek help at emergency department. Activity Activity as Tolerated: Yes Activity Instructions: Avoid Stress to Incision Driving Instructions: No Driving/Refer to Diet Discharge Diet: No Restrictions Diet After 24 Hours: Clear Liquid if Nauseous If Any Problems/Questions/Issu: Contact Your Physician, Go to Emergency Room Skin/Wound Care Infection Signs and Symptoms: Increased Redness, Foul Odor of Wound, Increased Drainage, Skin Itchy or Has a Rash, Increased Swelling, Temperature Above 101 F Bathing Instructions: Shower Stitches/Blanca/Dermabond Dis: Dermabond Ice Pack: Ice On and Off Site (as needed for pain) KOBE GARZA DO Mar 31, 2018 10:51
[2018-03-31] MEDS ORDERED: ONDANSETRON 4 MG/2 ML (SDV) Z0FRAN IVP PRN (11:15)
[2018-03-31] MEDS ORDERED: HYDROmorphone 2 MG/ML VIAL (DILAUDID) IV ONE (11:15)
[2018-03-31] MEDS ORDERED: fentaNYL INJECTION 100 MCG/2 ML AMP IVP ONE (11:15)
[2018-03-31 11:50] VITALS: BP 124/78
[2018-03-31 12:20] VITALS: BP 133/71
[2018-03-31 12:50] VITALS: BP 154/94
[2018-03-31 13:25] VITALS: BP 154/94
--- NOTE | 2018-03-31 14:15 | Anesthesia-General Post-Op ---
General Patient Condition Mental Status/LOC: Same as Preop Cardiovascular: Satisfactory Nausea/Vomiting: Absent Respiratory: Satisfactory Pain: Controlled Complications: Absent Post Op Complications Complications None Follow Up Care/Instructions Patient Instructions None needed. Anesthesia/Patient Condition Patient Condition Patient is doing well, no complaints, stable vital signs, no apparent adverse anesthesia problems. No complications reported per nursing. RICO MOYA CRNA Mar 31, 2018 14:15
--- NOTE | 2018-03-31 19:13 | OPERATIVE REPORT ---
DATE OF SERVICE: 03/31/2018 PREOPERATIVE DIAGNOSES: Right cheek mass. POSTOPERATIVE DIAGNOSIS: Right cheek mass. Pending pathology. Probable sebaceous cyst. PROCEDURE: Excision of right cheek mass, 3.6 cm incision down to the muscle. SURGEON: Dudley Merrill DO RESEARCH SCIENTIST: NASREEN Mendosa. ANESTHESIA: General endotracheal tube. SPECIMEN: Right cheek mass measured approximately 5 cm in diameter. BLOOD LOSS: Scant. FLUIDS: Per anesthesia. POSTOPERATIVE CONDITION: Stable. INDICATION FOR PROCEDURE: The patient is a 57-year-old male with a mass in his right cheek that has been getting bigger, bothering him and he wants to get it removed. FINDINGS: The patient had a right cheek mass, measured about 5 cm in diameter, looked like he had a sebaceous material in it so probably a sebaceous cyst removed and sent to pathology. PROCEDURE NOTE: After informed consent was obtained, the patient was brought to the operating room, placed on the table in supine position. We then shaved his judge slightly , so that we could put an incision in the judge line and then made an incision with a #15 blade, carried down through skin and subcutaneous tissue after first infiltrating the area with local, then dissecting gently underneath the skin with a #15 blade as well as then using sharp dissection with scissors to try to go down and around it and then grasping the mass. I did actually make a small hole and then got some sebaceous material out, able to grasp the mass down and dissect around it using the sharp dissection as well as a Bovie electrocautery. It was down to the muscle. I had to push the muscle off to remove this mass en bloc. Once it was completely removed, I copiously irrigated with normal saline. Hemostasis obtained using Bovie electrocautery. I elected to close the incision, closing the skin with 4-0 undyed Monocryl, 5 interrupted subcuticular stitches. The incision measured about 3.6 cm. Copiously irrigated. I then cleaned the incision and closed with Dermabond and dressing then placed. The patient then transferred to recovery room in stable condition. Sponge, instrument and needle count correct at the end of the case. Job ID: [id number] DocumentID: [id number] Dictated Date: 03/31/2018 12:38:41 Computer Systems Manager Date: 03/31/2018 19:12:52 Dictated By: DUDLEY MERRILL DO MTDD
== END 2018-03-31 13:25 | disposition home or self-care (01) ==
LOC: SDC 08:06
PROVIDERS: ATTEND Surgery
DX: L72.0 Epidermal cyst (principal); Z11.2 Encounter for screening for other bacterial diseases; I10 Essential (primary) hypertension; M19.90 Unspecified osteoarthritis, unspecified site; F17.210 Nicotine dependence, cigarettes, uncomplicated; G62.9 Polyneuropathy, unspecified; Z79.52 Long term (current) use of systemic steroids
CPT/HCPCS: 87081; 88304; 94640

== ENCOUNTER 2018-05-12 10:51 | Emergency (ER) | payer OTHER ==
[~2018-05-12] VITALS: Ht 172.7 cm; Wt 106.6 kg
[~2018-05-12 10:51] MED LIST changes: +HYDR-3820 PO
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
--- OUTSIDE RECORDS SUMMARY | 2018-05-12 10:58 | XMS REPORT ---
Author Author EDEN HOWELL Organization [facility] Address [address] [place] [address] Care Team Providers Care Brine Room Laborer Name Role Phone EDEN HOWELL Unavailable PROBLEMS Type Condition ICD9-CM Code [id number] Code Onset Dates Condition Status SNOMED Code Problem Alcoholism F10.20 Active 8083499 Problem Hypertension I10 Active 06051277 Problem Other chronic pain G89.29 Active 22334048 Problem Alcoholic liver disease K70.9 Active 62510096 Problem Rheumatoid arthritis involving multiple sites with positive rheumatoid factor M05.79 Active 955465945 Problem Osteoarthritis M19.90 Active 044989713 Problem Chronic alcoholic liver disease K70.9 Active 117619686 Problem Arthritis M19.90 Active 8486708 ALLERGIES No Information ENCOUNTERS Encounter Location Date Diagnosis [facility] [id number] [place] [address] Apr, Rheumatoid arthritis involving multiple sites with positive rheumatoid factor M05.79 [facility] [id number] [place] [address]61- 4075 Apr, Rheumatoid arthritis involving multiple sites with positive rheumatoid factor M05.79 [facility] [id number] [place] [address]43 -9448 Apr, Rheumatoid arthritis involving multiple sites with positive rheumatoid factor M05.79 ; Other chronic pain G89.29 and Cellulitis, unspecified cellulitis site L03.90 [facility] [id number] [place] [address] 84091- 1102 Apr, [facility] [id number] [place] [address]75 -[address]3 Apr, Other chronic pain G89.29 ; Rheumatoid arthritis involving multiple sites with positive rheumatoid factor M05.79 and Cellulitis, unspecified cellulitis site L03.90 [facility] [address], [place] [address] Apr, [facility] [address], [place] [address]- [address] Feb, [facility] [address], [place] [address]- [address] Feb, Rheumatoid arthritis involving multiple sites with positive rheumatoid factor M05.79 ; Chronic alcoholic liver disease K70.9 and Lipoma D17.9 [facility] [address], [place] [address] Feb, [facility] [address], [place] [address]- [address] Feb, Chronic alcoholic liver disease K70.9 and Rheumatoid arthritis involving multiple sites with positive rheumatoid factor M05.79 [facility] [address], [place] [address]- [address] Jan, [facility] [address], [place] [address] 2546 Jan, [facility] [address], [place] [address]- 8[address] Dec, Rheumatoid arthritis involving multiple sites with positive rheumatoid factor M05.79 [facility] [address], [place] [address]- [address] Dec, Arthritis M19.90 [facility] [address], [place] [address]- [address] November, [facility] [id number], [place] [address]- 5[address] Oct, [facility] [id number], [place] [address] 2546 Sep, [facility] [id number], [place] [address]- [address]756 Aug, Rheumatoid arthritis involving multiple sites with positive rheumatoid factor M05.79 [facility] [id number] [place] [address] 94136- 9221 Jul, Rheumatoid arthritis involving multiple sites with positive rheumatoid factor M05.79 and Alcoholism F10.20 [facility] [id number] [place] [address] 26735- 1652 Jun, [facility] [address] [address]- [address] May, Alcoholism F10.20 ; Hypertension I10 ; Rheumatoid arthritis involving multiple sites with positive rheumatoid factor M05.79 and Encounter for immunization Z23 [place] [address] [address] Apr, Rheumatoid arthritis involving multiple sites, unspecified rheumatoid factor presence M06.9 and Hypertension I10 [place] [address] [address]- [address] Feb, [place] [address] [address]- [address] Feb, Hypertension I10 ; Rheumatoid arthritis involving multiple sites, unspecified rheumatoid factor presence M06.9 and Alcoholism F10.20 [facility] [id number] [place] [address]856 -9759 Jan, Lower extremity edema R60.0 and Cellulitis of left lower limb L03.116 [facility] [id number] [place] [address] 69407- 7245 Aug, [facility] [id number] [place] [address] 93837- 2208 Aug, [facility] [address] [address]- [address] Aug, Osteoarthritis M19.90 ; Hypertension I10 and Alcoholism F10.20 [facility] [id number] [place] [address] 84510- 4555 Jan, [facility] [address] [address]- [address] Dec, Herpes zoster 053.9 [facility] [address] [facility] [id number] [address] Mar, [facility] [id number], [place] [address]- 2760 Mar, [facility] [address] [facility] [id number] [address]- [address] Dec, [facility] [id number] [address] Dec, IMMUNIZATIONS No Known Immunizations SOCIAL HISTORY Never Assessed REASON FOR VISIT PLAN OF CARE VITAL SIGNS MEDICATIONS Unknown [...]
--- OUTSIDE RECORDS SUMMARY | 2018-05-12 10:59 | XMS REPORT ---
Author Author EDEN HOWELL Organization [facility] Address [address] [place] [address] Care Team Providers Care Bid Analyst Name Role Phone EDEN HOWELL Unavailable PROBLEMS Type Condition ICD9-CM Code [id number] Code Onset Dates Condition Status SNOMED Code Problem Alcoholism F10.20 Active 6888293 Problem Alcoholic liver disease K70.9 Active 77734274 Problem Chronic alcoholic liver disease K70.9 Active 330820294 Problem Hypertension I10 Active 45204114 Problem Osteoarthritis M19.90 Active 115989574 Problem Arthritis M19.90 Active 5252508 Problem Rheumatoid arthritis involving multiple sites with positive rheumatoid factor M05.79 Active 974871415 ALLERGIES No Information ENCOUNTERS Encounter Location Date Diagnosis [facility] [address], [place] [address] Feb, [facility] [id number] [place] [address]345- 0148 Feb, Rheumatoid arthritis involving multiple sites with positive rheumatoid factor M05.79 ; Chronic alcoholic liver disease K70.9 and Lipoma D17.9 [facility] [address], [place] [address]- 77[address] Feb, [facility] [id number] [place] [address] 89428- 0741 Feb, Chronic alcoholic liver disease K70.9 and Rheumatoid arthritis involving multiple sites with positive rheumatoid factor M05.79 [facility] [id number] [place] [address] 68485- 4002 Jan, [facility] [address], [place] [address]- 4435 Jan, [facility] [id number] [place] [address] 46940- 8851 Dec, Rheumatoid arthritis involving multiple sites with positive rheumatoid factor M05.79 [facility] [address] [place] [address] 70163- 3005 Dec, Arthritis M19.90 [facility] [id number] [place] [address] 17591- 8766 November, [facility] [id number] [place] [address] 13206- 7847 Oct, [facility] [id number] [place] [address] 89047- 6471 Sep, [facility] [id number] [place] [address] 12682- 7124 Aug, Rheumatoid arthritis involving multiple sites with positive rheumatoid factor M05.79 [facility] [id number] [place] [address] 06328- 9564 Jul, Rheumatoid arthritis involving multiple sites with positive rheumatoid factor M05.79 and Alcoholism F10.20 [facility] [id number] [place] [address] 42397- 2795 Jun, [facility] [id number] [place] [address] 06634- 4926 May, Alcoholism F10.20 ; Hypertension I10 ; Rheumatoid arthritis involving multiple sites with positive rheumatoid factor M05.79 and Encounter for immunization Z23 [place] [address] [place] [address] 91102- 6602 Apr, Rheumatoid arthritis involving multiple sites, unspecified rheumatoid factor presence M06.9 and Hypertension I10 [facility] [address] [place] [address] 39928- 2260 Feb, [place] [id number] [place] [address] 97131- 2193 Feb, Hypertension I10 ; Rheumatoid arthritis involving multiple sites, unspecified rheumatoid factor presence M06.9 and Alcoholism F10.20 [facility] [address] [place] [address] 14906 -1391 Jan, Lower extremity edema R60.0 and Cellulitis of left lower limb L03.116 [facility] [address] [place] [address] 14500- 3920 Aug, [facility] [id number] [place] [address] 01268- 8292 Aug, [facility] [id number] [place] [address] 90434- 9481 Aug, Osteoarthritis M19.90 ; Hypertension I10 and Alcoholism F10.20 [place] [id number] [place] [address] 06433- 5360 Jan, [facility] [id number] [place] [address] 66043- 3608 Dec, Herpes zoster 053.9 [place] [id number] [place] [address] 61992- 0981 Mar, [facility] [id number] [place] [address] 30065- 8966 Mar, [place] [id number] [place] [address] 26375- 0944 Dec, [facility] [address], [place] [address]- 2308 Dec, IMMUNIZATIONS No Known Immunizations SOCIAL HISTORY [...]
--- OUTSIDE RECORDS SUMMARY | 2018-05-12 10:59 | XMS REPORT ---
Author Author EDEN HOWELL Organization [facility] Address [address] [place] [address] Care Team Providers Care Burlesque Dancer Name Role Phone EDEN HOWELL Unavailable PROBLEMS Type Condition ICD9-CM Code AOH31-NE Code Onset Dates Condition Status SNOMED Code Problem Alcoholism F10.20 Active 6756225 Problem Alcoholic liver disease K70.9 Active 98707076 Problem Chronic alcoholic liver disease K70.9 Active 150642863 Problem Hypertension I10 Active 49383298 Problem Osteoarthritis M19.90 Active 735120813 Problem Arthritis M19.90 Active 4528049 Problem Rheumatoid arthritis involving multiple sites with positive rheumatoid factor M05.79 Active 426442813 ALLERGIES No Information ENCOUNTERS Encounter Location Date Diagnosis [facility] [address] [address] Feb, [facility] [id number] [place] [address] 00138- 6634 Feb, Rheumatoid arthritis involving multiple sites with positive rheumatoid factor M05.79 ; Chronic alcoholic liver disease K70.9 and Lipoma D17.9 [facility] [address] [address] Feb, [facility] [id number] [place] [address] 40252- 9033 Feb, Chronic alcoholic liver disease K70.9 and Rheumatoid arthritis involving multiple sites with positive rheumatoid factor M05.79 [facility] [id number] [place] [address] 03462- 7180 Jan, [facility] [address] [address] Jan, [facility] [id number] [place] [address] 58398- 1603 Dec, Rheumatoid arthritis involving multiple sites with positive rheumatoid factor M05.79 [facility] [address] [place] [address] 31249- 1683 Dec, Arthritis M19.90 [facility] [id number] [place] [address] 41636- 8470 November, [facility] [id number] [place] [address] 88608- 3965 Oct, [facility] [id number] [place] [address] 31131- 3430 Sep, [facility] [id number] [place] [address] 96521- 8073 Aug, Rheumatoid arthritis involving multiple sites with positive rheumatoid factor M05.79 [facility] [id number] [place] [address] 26800- 7986 Jul, Rheumatoid arthritis involving multiple sites with positive rheumatoid factor M05.79 and Alcoholism F10.20 [facility] [id number] [place] [address] 60411- 9968 Jun, [facility] [id number] [place] [address] 18715- 4169 May, Alcoholism F10.20 ; Hypertension I10 ; Rheumatoid arthritis involving multiple sites with positive rheumatoid factor M05.79 and Encounter for immunization Z23 [place] [address] [place] [address] 75643- 4107 Apr, Rheumatoid arthritis involving multiple sites, unspecified rheumatoid factor presence M06.9 and Hypertension I10 [facility] [address] [place] [address] 81633- 8596 Feb, [place] [id number] [place] [address] 61580- 0564 Feb, Hypertension I10 ; Rheumatoid arthritis involving multiple sites, unspecified rheumatoid factor presence M06.9 and Alcoholism F10.20 [facility] [address] [place] [address] 16028 -1545 Jan, Lower extremity edema R60.0 and Cellulitis of left lower limb L03.116 [facility] [address] [place] [address] 80166- 0663 Aug, [facility] [id number] [place] [address] 18347- 0651 Aug, [facility] [id number] [place] [address] 25956- 0820 Aug, Osteoarthritis M19.90 ; Hypertension I10 and Alcoholism F10.20 [place] [id number] [place] [address] 33226- 5480 Jan, [facility] [id number] [place] [address] 41001- 9181 Dec, Herpes zoster 053.9 [place] [id number] [place] [address] 57296- 3666 Mar, [place] [id number] [place] [address] 87428- 9131 Mar, [place] [address] [place] [address] 53859- 0369 Dec, [place] [address] [address] Dec, IMMUNIZATIONS No Known Immunizations SOCIAL HISTORY Never Assessed REASON FOR VISIT Refill request PLAN OF CARE VITAL SIGNS MEDICATIONS [...]
--- OUTSIDE RECORDS SUMMARY | 2018-05-12 10:59 | XMS REPORT ---
Author Author EDEN HOWELL Organization [facility] Address [address] [place] [address] Care Team Providers Care Inbound Sales Advisor Name Role Phone EDEN HOWELL Unavailable PROBLEMS Type Condition ICD9-CM Code [id number] Code Onset Dates Condition Status SNOMED Code Problem Alcoholism F10.20 Active 2059706 Problem Alcoholic liver disease K70.9 Active 09171197 Problem Chronic alcoholic liver disease K70.9 Active 423352471 Problem Hypertension I10 Active 10174398 Problem Osteoarthritis M19.90 Active 154314003 Problem Arthritis M19.90 Active 5497393 Problem Rheumatoid arthritis involving multiple sites with positive rheumatoid factor M05.79 Active 014586358 ALLERGIES No Information ENCOUNTERS Encounter Location Date Diagnosis [facility] [address] [address] Feb, [facility] [id number] [place] [address] 82047- 5363 Feb, Rheumatoid arthritis involving multiple sites with positive rheumatoid factor M05.79 ; Chronic alcoholic liver disease K70.9 and Lipoma D17.9 [facility] [address] [address] 5[address] Feb, [facility] [id number] [place] [address] 92180- 3877 Feb, Chronic alcoholic liver disease K70.9 and Rheumatoid arthritis involving multiple sites with positive rheumatoid factor M05.79 [facility] [id number] [place] [address] 01335- 7764 Jan, [facility] [address] [address] Jan, [facility] [id number] [place] [address] 86858- 1500 Dec, Rheumatoid arthritis involving multiple sites with positive rheumatoid factor M05.79 [facility] [address] [place] [address] 06710- 1874 Dec, Arthritis M19.90 [facility] [id number] [place] [address] 62671- 0738 November, [facility] [id number] [place] [address] 13378- 0896 Oct, [facility] [id number] [place] [address] 34533- 3573 Sep, [facility] [id number] [place] [address] 89837- 7394 Aug, Rheumatoid arthritis involving multiple sites with positive rheumatoid factor M05.79 [facility] [id number] [place] [address] 70048- 5185 Jul, Rheumatoid arthritis involving multiple sites with positive rheumatoid factor M05.79 and Alcoholism F10.20 [facility] [id number] [place] [address] 93287- 7602 Jun, [facility] [id number] [place] [address] 93534- 0439 May, Alcoholism F10.20 ; Hypertension I10 ; Rheumatoid arthritis involving multiple sites with positive rheumatoid factor M05.79 and Encounter for immunization Z23 [place] [address] [place] [address] 39263- 7003 Apr, Rheumatoid arthritis involving multiple sites, unspecified rheumatoid factor presence M06.9 and Hypertension I10 [facility] [address] [place] [address] 29185- 3305 Feb, [place] [id number] [place] [address] 99292- 6287 Feb, Hypertension I10 ; Rheumatoid arthritis involving multiple sites, unspecified rheumatoid factor presence M06.9 and Alcoholism F10.20 [facility] [address] [place] [address] 40590 -1847 Jan, Lower extremity edema R60.0 and Cellulitis of left lower limb L03.116 [facility] [address] [place] [address] 57556- 7353 Aug, [facility] [id number] [place] [address] 44433- 8257 Aug, [facility] [id number] [place] [address] 78819- 3502 Aug, Osteoarthritis M19.90 ; Hypertension I10 and Alcoholism F10.20 [place] [id number] [place] [address] 20628- 6248 Jan, [facility] [id number] [place] [address] 23795- 1277 Dec, Herpes zoster 053.9 [place] [id number] [place] [address] 31511- 8403 Mar, [place] [address] [place] [address] 00158- 8661 Mar, [place] [address] [place] [address] 36979- 3361 Dec, [place] [address] [address]- 0294 Dec, IMMUNIZATIONS No Known Immunizations SOCIAL HISTORY Never Assessed REASON FOR VISIT Requests return call PLAN OF CARE VITAL SIGNS MEDICATIONS Unknown [...]
--- OUTSIDE RECORDS SUMMARY | 2018-05-12 10:59 | XMS REPORT ---
Author Author EDEN HOWELL Organization [facility] Address [address] [place] [address] Care Team Providers Care Sample Shoe Inspector And Reworker Name Role Phone EDEN HOWELL Unavailable PROBLEMS Type Condition ICD9-CM Code BRL17-PQ Code Onset Dates Condition Status SNOMED Code Problem Alcoholism F10.20 Active 3880363 Problem Alcoholic liver disease K70.9 Active 09512099 Problem Chronic alcoholic liver disease K70.9 Active 412179939 Problem Hypertension I10 Active 40273398 Problem Osteoarthritis M19.90 Active 400268484 Problem Arthritis M19.90 Active 5909381 Problem Rheumatoid arthritis involving multiple sites with positive rheumatoid factor M05.79 Active 275598801 ALLERGIES No Known Allergies ENCOUNTERS Encounter Location Date Diagnosis [facility] [address], [place] [address] Feb, [facility] [address] [place] [address] 26355- 6536 Feb, Rheumatoid arthritis involving multiple sites with positive rheumatoid factor M05.79 ; Chronic alcoholic liver disease K70.9 and Lipoma D17.9 [facility] [address] [address]- 6509 Feb, [facility] [address] [place] [address] 52382- 4162 Feb, Chronic alcoholic liver disease K70.9 and Rheumatoid arthritis involving multiple sites with positive rheumatoid factor M05.79 [facility] [address] [place] [address] 10314- 5525 Jan, [facility] [address], [place] [address]- 2832 Jan, [facility] [address] [place] [address] 18927- 4388 Dec, Rheumatoid arthritis involving multiple sites with positive rheumatoid factor M05.79 [facility] [address] [place] [address] 77393- 5168 Dec, Arthritis M19.90 [facility] [id number] [place] [address] 82278- 8419 November, [facility] [id number] [place] [address] 76808- 4842 Oct, [facility] [id number] [place] [address] 43952- 4676 Sep, [facility] [id number] [place] [address] 63543- 3020 Aug, Rheumatoid arthritis involving multiple sites with positive rheumatoid factor M05.79 [facility] [id number] [place] [address] 68352- 5306 Jul, Rheumatoid arthritis involving multiple sites with positive rheumatoid factor M05.79 and Alcoholism F10.20 [facility] [address] [place] [address] 49769- 0478 Jun, [facility] [id number] [place] [address] 90422- 1850 May, Alcoholism F10.20 ; Hypertension I10 ; Rheumatoid arthritis involving multiple sites with positive rheumatoid factor M05.79 and Encounter for immunization Z23 [place] [address] [place] [address] 51160- 6093 Apr, Rheumatoid arthritis involving multiple sites, unspecified rheumatoid factor presence M06.9 and Hypertension I10 [facility] [address] [address]- 1655 Feb, [place] [id number] [place] [address] 50505- 9300 Feb, Hypertension I10 ; Rheumatoid arthritis involving multiple sites, unspecified rheumatoid factor presence M06.9 and Alcoholism F10.20 [facility] [address] [place] [address] 50951 -9454 Jan, Lower extremity edema R60.0 and Cellulitis of left lower limb L03.116 [place] [id number] [place] [address] 76394- 6558 Aug, [place] [address] [address]497 4354 Aug, [place] [address] [address]71 1927 Aug, Osteoarthritis M19.90 ; Hypertension I10 and Alcoholism F10.20 [place] [address] 145408- 2090 Jan, [place] [address] 66570- 7431 Dec, Herpes zoster 053.9 [place] [address] 08001- 3069 Mar, [place] [id number] [place] [address] 14612 2469 Mar, [place] [id number] [place] [address] 18505- 9986 Dec, [place] [id number] [place] [address] 92006- 2233 Dec, IMMUNIZATIONS No Known Immunizations SOCIAL HISTORY Never Assessed REASON FOR VISIT f/u lab result, Pt's methotrexate was refilled on 12/23 for 13 week supply. Called in a week ago for refills from repository, have been unable to reach patient since then. , Pt in for f/u [facility] Clark PLAN OF CARE Activity Details Follow Up 3 Months Reason:lipoma / RA/ liver VITAL SIGNS Height 68 in 2018-03-09 Weight 229.2 lbs 2018-03-09 Temperature 98.1 degrees Fahrenheit 2018-03-09 Heart Rate 98 bpm 2018-03-09 Respiratory Rate 24 2018-03-09 BMI 34.85 kg/m2 2018-03-09 Blood pressure systolic 138 mmHg 2018-03-09 Blood pressure diastolic 72 mmHg 2018-03-09 MEDICATIONS Medication Instructions Dosage Frequency Start Date End Date Duration Status Methotrexate 2.5 MG Orally once weekly 4 tablets weekly Feb, Active Folic Acid 1 MG Orally Once a day on days you do not take methotrexate 1 tablet May, 90 days Active PredniSONE 10 MG Orally Once a day 1 tablet 24h Jul, 45 days Active RESULTS [...]
--- OUTSIDE RECORDS SUMMARY | 2018-05-12 11:01 | XMS REPORT | Continuity of Care Document ---
Author Author [facility] Address Unknown Phone Unavailable Allergies Active Description Code Type Severity Reaction Onset Reported/Identified Relationship to Patient Clinical Status Yes NKANo Known Allergies NKA Miscellaneous Allergy Mild N/A 03/29/2018 Medications There is no data. Problems Date [...] ALLEN APRN Ot R60.0 LOCALIZED EDEMA 03/29/2018 KOBE GARZA DO Ot Z01.818 ENCOUNTER FOR OTHER PREPROCEDURAL EXAMIN 03/31/2018 GREG DOAUDRAIC B Ot F17.210 NICOTINE DEPENDENCE, CIGARETTES, UNCOMPL 03/31/2018 GREG DO, KOBE B Ot G62.9 POLYNEUROPATHY, UNSPECIFIED 03/31/2018 GREG DO, KOBE B Ot I10 ESSENTIAL (PRIMARY) HYPERTENSION 03/31/2018 GREG DO, KOBE B Ot L72.0 EPIDERMAL CYST 03/31/2018 GREG DO, KOBE B Ot M19.90 UNSPECIFIED OSTEOARTHRITIS, UNSPECIFIED 03/31/2018 GREG DO, KOBE B Ot Z11.2 ENCOUNTER FOR SCREENING FOR OTHER BACTER 03/31/2018 GREG DO KOBE B Ot Z79.52 [facility] (CURRENT) USE OF SYSTEMIC STER 04/05/2018 GREG DO KOBE B Ot F17.210 NICOTINE DEPENDENCE, CIGARETTES, UNCOMPL 04/05/2018 GREG DO, KOBE B Ot G62.9 POLYNEUROPATHY, UNSPECIFIED 04/05/2018 GREG DO, KOBE B Ot I10 ESSENTIAL (PRIMARY) HYPERTENSION 04/05/2018 GREG DO, KOBE B Ot L72.0 EPIDERMAL CYST 04/05/2018 GREG DO, KOBE B Ot M19.90 UNSPECIFIED OSTEOARTHRITIS, UNSPECIFIED 04/05/2018 GREG DO, KOBE B Ot Z11.2 ENCOUNTER FOR SCREENING FOR OTHER BACTER 04/05/2018 GREG DO, KOBE B Ot Z79.52 [facility] (CURRENT) USE OF SYSTEMIC STER 04/09/2018 GREG DO KOBE B Ot F17.210 NICOTINE DEPENDENCE, CIGARETTES, UNCOMPL 04/09/2018 GREG DO, KOBE B Ot G62.9 POLYNEUROPATHY, UNSPECIFIED 04/09/2018 ALBERTINAMAN DO, KOBE B Ot I10 ESSENTIAL (PRIMARY) HYPERTENSION 04/09/2018 GREG DO, KOBE B Ot L72.0 EPIDERMAL CYST 04/09/2018 DELMAN DO, KOBE B Ot M19.90 UNSPECIFIED OSTEOARTHRITIS, UNSPECIFIED 04/09/2018 DELMAN DO, KOBE B Ot Z11.2 ENCOUNTER FOR SCREENING FOR OTHER BACTER 04/09/2018 ALBERTINAJULIANNE DO, KOBE B Ot Z79.52 [facility] (CURRENT) USE OF SYSTEMIC STER Procedures There is no data. Results Test [...] NRG Blood erythrocyte morphology finding identification NORMAL NRG Manual blood metamyelocytes/100 leukocytes 1 % NRG [...] - 02/17/18 13:43 ABSOLUTE NEUTROPHILS 2067 cells/uL 4863-6990 ABSOLUTE MONOCYTES 551 cells/uL 200-950 ABSOLUTE EOSINOPHILS [...] 13:43 AMMONIA (P) 65 umol/L < OR=47 Methicillin resistant Staphylococcus aureus (MRSA) screening culture - 08:18 Methicillin resistant Staphylococcus aureus (MRSA) screening culture NEG NRG Encounters ACCT No. Visit Date/Time Discharge Status Pt. Type Provider Facility Loc./Unit Complaint [id number] 12/03/2011 10:19:00 12/03/2011 23:59:59 CLS Outpatient GABRIELLA MAHAJAN APRN [id number] 02/17/2018 12:40:00 02/17/2018 23:59:59 CLS Outpatient MARTI MORELOS, EDEN Yarbrough [facility] [id number] 02/17/2018 12:40:00 Document Registration [id number] 03/09/2017 17:20:00 Document Registration [id number] 03/31/2018 09:50:00 03/31/2018 23:59:59 CLS Outpatient KOBE GARZA DO Via [facility] SDC MASS RIGHT CHEEK [id number] 03/29/2018 05:28:00 03/29/2018 12:41:00 DIS Outpatient KOBE GARZA DO [facility] PREOP MASS RIGHT CHEEK [id number] 02/07/2017 20:35:00 02/07/2017 22:22:00 DIS Emergency WILLIAM ALLEN APRN [facility] ER GENERAL SWELLING [id number] 03/02/2016 19:13:00 03/02/2016 19:24:00 DIS Emergency GABRIELLA FIELDS DO [facility] ER R EYE LAC [id number] 01/12/2015 16:07:00 01/12/2015 17:03:00 DIS Emergency JANELL STINSON [facility] ER RASH [id number] 02/22/2014 12:14:00 02/22/2014 14:20:00 DIS Emergency JANELL STINSON [facility] ER BACK PAIN [id number] 03/11/2017 18:09:00 Document Registration
[2018-05-12] MEDS ORDERED: HYDROcodone/APAP 5 MG/325 MG (LORTAB) TAB PO ONE (11:15)
--- NOTE | 2018-05-12 11:19 | ED General ---
General Stated Complaint: ARTHRITIS Source of Information: Patient Exam Limitations: No Limitations History of Present Illness Date Seen by Provider: May 12, 2018 Time Seen by Provider: 11:16 Initial Comments This homeless gentleman presents to the emergency room with reports of diffuse joint pains ongoing for many years but worse than usual today. His hands are more swollen today than usual. He has been seen by [facility] and given a prescription for meloxicam about 2 weeks ago but denies any improvement. His hands are swollen and he is unable to use them. He does drink about 6 all boys of beer per day and smokes one pack of cigarettes per day. He states "if I don't get this pain under control Ill go home and blow my brains out" and begins crying. Timing/Duration: Getting Worse Severity: Moderate Allergies and Home Medications Allergies Coded Allergies: NKANo Known Allergies (Unverified Allergy, Mild, 03/29/18) Home Medications Folic Acid 0.8 Mg Tablet, 0.8 MG PO DAILY, (Reported) Hydrocodone/Acetaminophen 1 Each Tablet, 1 TAB PO Q6H Prescribed by: KOBE GARZA on 03/31/18 1049 Methotrexate Sodium 2.5 Mg Tablet, 10 MG PO WEEK, (Reported) Prednisone 5 Mg Tablet, 10 MG PO DAILY, (Reported) Patient Home Medication List Home Medication List Reviewed: Yes Review of Systems Review of Systems Constitutional: see HPI EENTM: see HPI Respiratory: no symptoms reported Cardiovascular: no symptoms reported Genitourinary: no symptoms reported Musculoskeletal: see HPI Skin: no symptoms reported Psychiatric/Neurological: No Symptoms Reported Hematologic/Lymphatic: No Symptoms Reported Immunological/Allergic: no symptoms reported Past Raugtjr-Xokscf-Giybqu Hx Patient Social History Alcohol Beverage of Choice: Beer Drug of Choice: THC Type Used: Cigarettes Recent Hopitalizations: No Immunizations Up To Date Date of Pneumonia Vaccine: May 04, 2017 Date of Influenza Vaccine: May 04, 2017 Seasonal Allergies Seasonal Allergies: No Past Medical History Surgeries: No Respiratory: No Cardiac: Yes Hypertension Neurological: No Reproductive Disorders: No Sexually Transmitted Disease: No HIV/AIDS: No Gastrointestinal: No Liver Disease/Jaundice Musculoskeletal: No Arthritis, Chronic Back Pain Endocrine: No Loss of Vision: Bilateral Hearing Impairment: Denies Cancer: No Psychosocial: No Integumentary: No Blood Disorders: No Adverse Reaction/Blood Tranf: No (N/A) Family Medical History No Pertinent Family Hx Physical Exam Vital Signs Vital Signs - First Documented 05/12/18 11:10 Temp 99.6 Pulse 99 Resp 18 B/P (MAP) 154/107 (123) Pulse Ox 96 Capillary Refill : Height, Weight, BMI Height: 5'8.00" Weight: 226lbs. 0.0oz. 102.643270bo; 34.4 BMI Method:Stated General Appearance: No Apparent Distress, WD/WN Eyes: Bilateral Eye Normal Inspection, Bilateral Eye PERRL, Bilateral Eye EOMI HEENT: PERRL/EOMI Neck: Full Range of Motion, Normal Inspection Respiratory: No Accessory Muscle Use, No Respiratory Distress Cardiovascular: Regular Rate, Rhythm, Normal Peripheral Pulses Gastrointestinal: Normal Bowel Sounds, Non Tender, Soft Extremity: Normal Capillary Refill, Other (he does have diffuse swelling of his hands and inability to flex the fingers due to pain. No erythema. Swelling to each of the IP and MCP joints and wrists. ) Neurologic/Psychiatric: Alert, Oriented x3 Skin: Normal Color, Warm/Dry Progress/Results/Core Measures Suspected Sepsis SIRS Temperature: Pulse: Respiratory Rate: Laboratory Tests 05/12/18 11:19: White Blood Count 6.4 Blood Pressure / Mean: Laboratory Tests 05/12/18 11:19: Creatinine 0.69, Platelet Count 236, Total Bilirubin 0.9 Results/Orders Lab Results Laboratory Tests Test 05/12/18 11:19 Range/Units White Blood Count 6.4 4.3-11.0 10^3/uL Red Blood Count 3.98 L 4.35-5.85 10^6/uL Hemoglobin 13.3 13.3-17.7 G/DL Hematocrit 40 40-54 % Mean Corpuscular Volume 100 H 80-99 FL Mean Corpuscular Hemoglobin 33 25-34 PG Mean Corpuscular Hemoglobin Concent 34 32-36 G/DL Red Cell Distribution Width 14.4 10.0-14.5 % Platelet Count 236 130-400 10^3/uL Mean Platelet Volume 8.9 7.4-10.4 FL Neutrophils (%) (Auto) 63 42-75 % Lymphocytes (%) (Auto) 22 12-44 % Monocytes (%) (Auto) 13 H 0-12 % Eosinophils (%) (Auto) 2 0-10 % Basophils (%) (Auto) 0 0-10 % Neutrophils # (Auto) 4.0 1.8-7.8 X 10^3 Lymphocytes # (Auto) 1.4 1.0-4.0 X 10^3 Monocytes # (Auto) 0.9 0.0-1.0 X 10^3 Eosinophils # (Auto) 0.1 0.0-0.3 10^3/uL Basophils # (Auto) 0.0 0.0-0.1 10^3/uL Erythrocyte Sedimentation Rate 76 H 0-30 MM/HR Sodium Level 132 L 135-145 MMOL/L Potassium Level 4.2 3.6-5.0 MMOL/L Chloride Level 98 98-107 MMOL/L Carbon Dioxide Level 21 21-32 MMOL/L Anion Gap 13 5-14 MMOL/L Blood Urea Nitrogen 7 7-18 MG/DL Creatinine 0.69 0.60-1.30 MG/DL Estimat Glomerular Filtration Rate > 60 BUN/Creatinine Ratio 10 Glucose Level 114 H 70-105 MG/DL Calcium Level 9.2 8.5-10.1 MG/DL Corrected Calcium 9.8 8.5-10.1 MG/DL Total Bilirubin 0.9 0.1-1.0 MG/DL Aspartate Amino Transf (AST/SGOT) 35 H 5-34 U/L Alanine Aminotransferase (ALT/SGPT) 30 0-55 U/L Alkaline Phosphatase 68 40-136 U/L Total Protein 7.3 6.4-8.2 GM/DL Albumin 3.3 3.2-4.5 GM/DL Thyroid Stimulating Hormone (TSH) 2.83 0.35-4.94 UIU/ML Free Thyroxine 0.92 0.70-1.48 NG/DL Serum Alcohol < 10 <10 MG/DL My Orders Orders - WILLIAM ALLEN APRN Cbc With Automated Diff (05/12/18 11:14) Comprehensive Metabolic Panel (05/12/18 11:14) Ua Culture If Indicated (05/12/18 11:14) Iv Heplock-Insert (Order) (05/12/18 11:14) Erythrocyte Sedimentation Rate (05/12/18 11:14) Hand, 3 Views, Bilateral (05/12/18 11:14) Thyroid Stimulating Hormone (05/12/18 11:14) Free T4 (Free Thyroxine) (05/12/18 11:14) Chest 1 View, Ap/Pa Only (05/12/18 11:14) Alcohol (05/12/18 11:14) Hydrocodone/Apap 5/325 Tablet (Lortab 5 (05/12/18 11:15) Dexamethasone Injection (Decadron Inject (05/12/18 12:15) Medications Given in ED Current Medications Medications Dose Ordered Sig/[place] Route Start Time Stop Time Status Last Admin Dose Admin Acetaminophen/ Hydrocodone Bitart 1 tab ONCE ONCE PO 05/12/18 11:15 05/12/18 11:16 DC 05/12/18 11:22 1 TAB Dexamethasone Sodium Phosphate 10 mg ONCE ONCE IM 05/12/18 12:15 05/12/18 12:16 DC 05/12/18 12:27 10 MG Vital Signs/I&O 05/12/18 11:10 Temp 99.6 Pulse 99 Resp 18 B/P (MAP) 154/107 (123) Pulse Ox 96 Capillary Refill : Departure Communication (Admissions) His hands are diffusely swollen without erythema and they do appear painful and he does seem to be genuinely be in pain and not malingering or seeking opiates. I will prescribe a course of hydrocodone and follow up with primary care. Impression Primary Impression: Arthritis Disposition: HOME, SELF-CARE Condition: Stable Departure-Patient Inst. Decision time for Depature: 12:37 Referrals: NO,LOCAL PHYSICIAN (PCP/Family) Primary Care Physician Patient Instructions: Arthritis and Exercise, Rheumatoid Arthritis Add. Discharge Instructions: 1. It looks like [facility] also prescribed you methotrexate. This is very important medication to take. Take the prescribed pain medication as directed which cannot be refilled from the emergency room. He will need to go to [facility] for any refills and only if they feel that it is appropriate. Do not under any circumstances use alcohol while taking this pain medication Scripts Hydrocodone/Acetaminophen (Isabella 5-325 Tablet) 1 Each Tablet 1 EACH PO Q6H PRN for PAIN-MODERATE MDD 10, #30 TAB Prov: WILLIAM ALLEN APRN 05/12/18 Copy Copies To 1: JOCELYNE FRANK PETER J APRN May 12, 2018 11:19
[2018-05-12 11:24] LABS: BASOPHILS % (AUTO) 0 % (0-10); EOSINOPHILS # (AUTO) 0.1 10^3/uL (0.0-0.3); EOSINOPHILS % (AUTO) 2 % (0-10); HEMATOCRIT 40 % (40-54); HEMOGLOBIN 13.3 G/DL (13.3-17.7); LYMPHOCYTES # (AUTO) 1.4 X 10^3 (1.0-4.0); LYMPHOCYTES % (AUTO) 22 % (12-44); MEAN CORPUSCULAR HEMOGLOBIN 33 PG (25-34); MEAN CORPUSCULAR HGB CONC 34 G/DL (32-36); MEAN CORPUSCULAR VOLUME 100 FL (80-99); MEAN PLATELET VOLUME 8.9 FL (7.4-10.4); MONOCYTES # (AUTO) 0.9 X 10^3 (0.0-1.0); MONOCYTES % (AUTO) 13 % (0-12); NEUTROPHILS % (AUTO) 63 % (42-75); PLATELET COUNT 236 10^3/uL (130-400); RED BLOOD COUNT 3.98 10^6/uL (4.35-5.85); RED CELL DISTRIBUTION WIDTH 14.4 % (10.0-14.5); WHITE BLOOD COUNT 6.4 10^3/uL (4.3-11.0)
[2018-05-12 11:45] LABS: ALANINE AMINOTRANSFERASE 30 U/L (0-55); ALBUMIN 3.3 GM/DL (3.2-4.5); ALKALINE PHOSPHATASE 68 U/L (40-136); BILIRUBIN,TOTAL 0.9 MG/DL (0.1-1.0); BUN/CREATININE RATIO 10; CALCIUM 9.2 MG/DL (8.5-10.1); CARBON DIOXIDE 21 MMOL/L (21-32); CHLORIDE 98 MMOL/L (98-107); CREATININE SERUM 0.69 MG/DL (0.60-1.30); GFR ESTIMATED > 60; GLUCOSE 114 MG/DL (70-105); POTASSIUM 4.2 MMOL/L (3.6-5.0); SODIUM 132 MMOL/L (135-145); TOTAL PROTEIN 7.3 GM/DL (6.4-8.2)
--- NOTE | 2018-05-12 11:53 | Diagnostic Imaging Report ---
Indication: Arthritic pain, left flank pain. Comparison: 02/07/2017 Findings: There are multiple old healed rib deformities on the right. The heart is mildly enlarged, increased in caliber from prior and there is borderline distention of the upper lobe pulmonary venous structures. There is, however, no carmenza edema. No convincing evidence for pneumonia or pleural fluid. Impression: Cardiomegaly and mild vascular congestion, old rib deformities, no focal infiltrate or acute pleural abnormality. Dictated by: Dictated on workstation # [id number]
[2018-05-12 12:01] LABS: ERYTHROCYTE SEDIMENTATION RATE 76 MM/HR (0-30)
[2018-05-12 12:07] LABS: FREE T4 (FREE THYROXINE) 0.92 NG/DL (0.70-1.48)
[2018-05-12] MEDS ORDERED: DEXAMETHASONE 10 MG/ML (DECADRON) 1 ML VIAL IM ONE (12:15)
[2018-05-12] MEDS ORDERED: HYDR-4226 PO (12:40)
[2018-05-12 12:51] VITALS: BP 147/88
--- NOTE | 2018-05-12 13:34 | Diagnostic Imaging Report ---
INDICATION: Bilateral hand pain and swelling. TIME OF EXAM: 11:34 a.m. FINDINGS: Multiple views of bilateral hands were obtained. Left hand does show some degenerative changes at the first and third MCP joints with joint space narrowing and marginal spurring. There does appear to be some mild soft tissue swelling of the phalanges, but no acute osseous abnormality is seen. No erosive changes are identified. Interphalangeal joints are unremarkable. The right hand shows degenerative changes involving the first, second, and third MCP joints with joint space narrowing and spurring. No osseous erosive changes are seen. Interphalangeal joints are unremarkable. Carpus is unremarkable. No fractures are seen. IMPRESSION: Osteoarthritic changes bilaterally and mild soft tissue swelling. No osseous erosive changes or acute fracture is seen. Dictated by: Dictated on workstation # [id number]
== END 2018-05-12 12:56 | disposition home or self-care (01) ==
LOC: EDUNIT# 10:51 → ER 10:54
DX: M19.041 Primary osteoarthritis, right hand (principal); M19.042 Primary osteoarthritis, left hand; I10 Essential (primary) hypertension; F10.10 Alcohol abuse, uncomplicated; F17.210 Nicotine dependence, cigarettes, uncomplicated; Z79.52 Long term (current) use of systemic steroids; Z87.19 Personal history of other diseases of the digestive system
CPT/HCPCS: 36415; 71045; 80053; 80320; 84439; 84443; 85025; 85652; 96372

== ENCOUNTER 2018-06-15 10:17 | Emergency (ER) | payer SELFPAY ==
[~2018-06-15] VITALS: Ht 172.7 cm; Wt 107.0 kg
[~2018-06-15 10:17] MED LIST changes: +HYDR-4226 PO
[2018-06-15] MEDS ORDERED: HYDROcodone/APAP 7.5 MG/325 MG (LORTAB, LORCET PLUS) TABLET PO STA (11:53)
--- NOTE | 2018-06-15 11:58 | ED General ---
General Chief Complaint: General Problems/Pain Stated Complaint: HAND AND FEET PAIN Nursing Triage Note: TO ROOM PER W/C REPORTS THAT HE HAS HAD FOOT AND HAND PAIN FOR 2 YEARS. HAS BEEN GETTING WORSE. Nursing Sepsis Screen: No Definite Risk History of Present Illness Date Seen by Provider: Jun 15, 2018 Time Seen by Provider: 11:40 Initial Comments 58-year-old male presents for bilateral hand and foot pain. He was seen here approximately one month ago and obtain x-rays of his hands, which showed osteoarthritic changes but no destructive bone lesions to think RA. He has not been compliant with follow-up at [facility], they have started him on meloxicam and methotrexate. He does report getting hydrocodone here and that it is assisted with his pain. He has been homeless, however over the last few days he has been staying with a friend. He normally rides a bike or walks, however it has been more difficult because of his feet pain. He has long-standing COPD and smoking history, denies increased SOA. He does report if his pain is not managed he will "jump off the roof with this f---ing building." He reports going to [facility] daily, he has never been seen at a premed clinic. Timing/Duration: Getting Worse Severity: Moderate Associated Systoms: Cough; No Diaphoresis, No Fever/Chills, No Headaches, No Loss of Appetite, No Malaise, No Nausea/Vomiting, No Rash; Weakness (bilateral lower extremities) Allergies and Home Medications Allergies Coded Allergies: NKANo Known Allergies (Unverified Allergy, Mild, 03/29/18) Home Medications Folic Acid 0.8 Mg Tablet, 0.8 MG PO DAILY, (Reported) Hydrocodone/Acetaminophen 1 Each Tablet, 1 TAB PO Q6H Prescribed by: KOBE GARZA on 03/31/18 1049 Hydrocodone/Acetaminophen 1 Each Tablet, 1 EACH PO Q6H PRN for PAIN-MODERATE Prescribed by: WILLIAM ALLEN on 05/12/18 1240 Hydrocodone/Acetaminophen 1 Each Tablet, 1 EACH PO Q8H PRN for PAIN-SEVERE Prescribed by: ANGELA PLEITEZ on 06/15/18 1308 Methotrexate Sodium 2.5 Mg Tablet, 10 MG PO WEEK, (Reported) Prednisone 20 Mg Tab, 20 MG PO DAILY take 3 tablets once daily for 5 days; then take 2 tables once daily for 5 days; then take 1 tablet once daily for 5 days. Prescribed by: ANGELA PLEITEZ on 06/15/18 7754 Patient Home Medication List Home Medication List Reviewed: Yes Review of Systems Review of Systems Constitutional: no symptoms reported, see HPI Respiratory: see HPI, cough, dyspnea on exertion (unchanged from his baseline status) Musculoskeletal: see HPI, back pain, joint pain (bilateral upper and lower extremity pain), joint swelling (hands and feet), muscle pain; No neck pain All Other Systems Reviewed Negative Unless Noted: Yes Past Civdklu-Tbnuqm-Ojgevw Hx Past Med/Social Hx: Reviewed Nursing Past Med/Soc Hx Patient Social History Alcohol Use: Occasionally Uses Number of Drinks Today: AA Alcohol Beverage of Choice: Beer Recreational Drug Use: No Drug of Choice: THC Smoking Status: Current Everyday Smoker Type Used: Cigarettes Recent Foreign Travel: No Contact w/Someone Who Travel: No Recent Infectious Disease Expo: No Recent Hopitalizations: No Immunizations Up To Date Date of Pneumonia Vaccine: May 04, 2017 Date of Influenza Vaccine: May 04, 2017 Seasonal Allergies Seasonal Allergies: No Past Medical History Surgeries: No Respiratory: No Cardiac: Yes Hypertension Neurological: No Reproductive Disorders: No Sexually Transmitted Disease: No HIV/AIDS: No Gastrointestinal: No Liver Disease/Jaundice Musculoskeletal: No Arthritis, Chronic Back Pain Endocrine: No Loss of Vision: Bilateral Hearing Impairment: Denies Cancer: No Psychosocial: No Integumentary: No Blood Disorders: No Adverse Reaction/Blood Tranf: No (N/A) Family Medical History No Pertinent Family Hx Physical Exam Vital Signs Vital Signs - First Documented 06/15/18 10:33 Temp 99.0 Pulse 107 Resp 18 B/P (MAP) 147/93 (111) Pulse Ox 97 O2 Delivery Room Air Capillary Refill : Less Than 3 Seconds Height, Weight, BMI Height: 5'8.00" Weight: 236lbs. 0.0oz. 107.492293pz; 34.4 BMI Method:Stated General Appearance: No Apparent Distress, WD/WN Neck: Full Range of Motion, Normal Inspection, Non Tender, Supple Respiratory: Chest Non Tender, No Accessory Muscle Use, No Respiratory Distress , Expiration, Inspiration, Wheezing Cardiovascular: Regular Rate, Rhythm; No No Edema; No Murmur Back: Normal Inspection, No Vertebral Tenderness Extremity: Normal Capillary Refill; No Normal Range of Motion (limitation of motion to all joints in the wrists, hands, ankle and feet bilaterally. No obvious deformities or nodes noted.); Pedal Edema (1+) Neurologic/Psychiatric: Alert, Oriented x3 Progress/Results/Core Measures Suspected Sepsis Recent Fever Within 48 Hours: No Infection Criteria Present: None New/Unexplained Altered Menta: No Sepsis Screen: No Definite Risk SIRS Temperature:99.0 Pulse: 107 Respiratory Rate: 18 Blood Pressure 147 /93 Mean: 111 Results/Orders My Orders Orders - ANGELA PLEITEZ Hydrocodone/Apap 7.5/325 Tab (Lortab 7. (06/15/18 11:53) Foot, Bilateral, 3 View (06/15/18 11:52) General/Regular (06/15/18 Lunch) Vital Signs/I&O 06/15/18 06/15/18 10:33 13:50 Temp 99.0 99.0 Pulse 107 107 Resp 18 18 B/P (MAP) 147/93 (111) 147/93 (111) Pulse Ox 97 97 O2 Delivery Room Air Capillary Refill : Less Than 3 Seconds Blood Pressure Mean: 111 Progress Note : Time: 11:40 Progress Note Patient seen and evaluated. Discussed with him in detail that this is going to be a chronic condition. Education provided and he calm down. Denies actually being suicidal or having thoughts of harming himself or others. He is just frustrated by his symptoms. We'll give one hydrocodone and obtain x-rays of his feet. Reviewed the x-rays of his hands from the previous visit. 1230 patient reports pain to be much improved after the hydrocodone. Further education and community resources reviewed with him. Discharge instructions and return precautions reviewed with him. All questions answered. Diagnostic Imaging Diagonstic Imaging: Xray Comments NAME: ERYN WOMACK [facility] REC#: [id number] PT STATUS: REG ER : 1960 PHYSICIAN: ANGELA PLEITEZ ADMIT DATE: 06/15/18/ER Draft Date of Exam:06/15/18 FOOT, BILATERAL, 3 VIEW PATIENT HISTORY: Chronic bilateral foot pain for 2 years, worsening. TECHNIQUE: 3 views of the right and left feet COMPARISON: None FINDINGS: Right foot: No acute fracture or dislocation is seen in the right foot. There is moderate hallux valgus with mild metatarsus primus varus. Moderate degenerative changes are seen in the great toe metatarsophalangeal joint, mild at the interphalangeal joint. There is a hypoplastic second distal phalanx. No joint effusion is seen. No focal cortical erosions are seen. Left foot: There is mild hallux valgus with mild degenerative changes in the great toe. There is a bipartite medial hallux sesamoid. There is thickening of the cortex along the fourth metatarsal shaft. The second distal phalanx also appears mildly hypoplastic. No acute fracture is seen. No significant left ankle joint effusion is seen. IMPRESSION: 1. Mild cortical thickening along the left fourth metatarsal shaft, may be due to stress reaction. No fracture line is visible. 2. Bilateral hallux valgus, right worse than left. Dictated on workstation # [id number] Dict: 06/15/18 1237 Trans: 06/15/18 1242 CV [id number] Interpreted by: OSIRIS JEWELL MD Electronically signed by: Reviewed: Reviewed by Me (evaluated left fourth metatarsal, no exquisite pain at this area to indicate a stress fracture. His pain is actually more severe in the right foot.) Departure Impression Primary Impression: Degenerative joint disease of both lower legs Additional Impressions: Generalized degenerative joint disease of hand Peripheral vascular disease of lower extremity Disposition: 01 HOME, SELF-CARE Condition: Improved Departure-Patient Inst. Decision time for Depature: 12:45 Referrals: NO,LOCAL PHYSICIAN (PCP/Family) Primary Care Physician Patient Instructions: Osteoarthritis (DC), Peripheral Vascular (Arterial) Disease (DC) Add. Discharge Instructions: Continue to take your methotrexate and meloxicam as previously prescribed. Begin taking aspirin 81 mg. Once daily Take prednisone as prescribed. Use the hydrocodone only for severe pain. Follow-up at [facility], can consider seeing Dr. Magdy Napier. Consider evaluation by a electroencephalographic technician if able to be referred from [facility]. Consider evaluation at the premed clinic at [facility]. Return to the emergency department for acute, emergent health care problems. All discharge instructions reviewed with patient and/or family. Voiced understanding. Scripts Hydrocodone/Acetaminophen (Hydrocodone-Acetamin 7.5-325) 1 Each Tablet 1 EACH PO Q8H PRN for PAIN-SEVERE MDD 6, #30 TAB 0 Refills Prov: MAIK,ANGELA HOUSE PAINTER HELPER 06/15/18 Prednisone (Prednisone) 20 Mg Tab 20 MG PO DAILY, #30 TAB 0 Refills take 3 tablets once daily for 5 days; then take 2 tables once daily for 5 days; then take 1 tablet once daily for 5 days. Prov: ANGELA PLEITEZ 06/15/18 Copy Copies To 1: JOCELYNE FRANK AMY ARNP Jun 15, 2018 11:58
--- NOTE | 2018-06-15 12:42 | Diagnostic Imaging Report ---
PATIENT HISTORY: Chronic bilateral foot pain for 2 years, worsening. TECHNIQUE: 3 views of the right and left feet COMPARISON: None FINDINGS: Right foot: No acute fracture or dislocation is seen in the right foot. There is moderate hallux valgus with mild metatarsus primus varus. Moderate degenerative changes are seen in the great toe metatarsophalangeal joint, mild at the interphalangeal joint. There is a hypoplastic second distal phalanx. No joint effusion is seen. No focal cortical erosions are seen. Left foot: There is mild hallux valgus with mild degenerative changes in the great toe. There is a bipartite medial hallux sesamoid. There is thickening of the cortex along the fourth metatarsal shaft. The second distal phalanx also appears mildly hypoplastic. No acute fracture is seen. No significant left ankle joint effusion is seen. IMPRESSION: 1. Mild cortical thickening along the left fourth metatarsal shaft, may be due to stress reaction. No fracture line is visible. 2. Bilateral hallux valgus, right worse than left. Dictated by: Dictated on workstation # [id number]
[2018-06-15] MEDS ORDERED: PRD20T PO (13:08)
[2018-06-15] MEDS ORDERED: HYDR-3816 PO (13:08)
[2018-06-15 13:50] VITALS: BP 147/93
== END 2018-06-15 13:50 | disposition home or self-care (01) ==
LOC: EDUNIT# 10:17 → ER 10:18
DX: M19.071 Primary osteoarthritis, right ankle and foot (principal); M19.072 Primary osteoarthritis, left ankle and foot; M19.041 Primary osteoarthritis, right hand; M19.042 Primary osteoarthritis, left hand; I73.9 Peripheral vascular disease, unspecified; F12.10 Cannabis abuse, uncomplicated; F17.210 Nicotine dependence, cigarettes, uncomplicated; I10 Essential (primary) hypertension; Z87.19 Personal history of other diseases of the digestive system; Z79.52 Long term (current) use of systemic steroids

== ENCOUNTER 2018-08-31 13:39 | Emergency (ER) | payer SELFPAY ==
[~2018-08-31] VITALS: Ht 172.7 cm; Wt 112.5 kg
[~2018-08-31 13:39] MED LIST changes: +HYDR-3816 PO
--- OUTSIDE RECORDS SUMMARY | 2018-08-31 13:46 | XMS REPORT ---
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 Role Phone JOHN OLVERA Unavailable PROBLEMS Type Condition ICD9-CM Code LJP40-AB Code Onset Dates Condition Status SNOMED Code Problem Alcoholism F10.20 Active 1451904 Problem Hypertension I10 Active 74620458 Problem Other chronic pain G89.29 Active 13943229 Problem Alcoholic liver disease K70.9 Active 84842237 Problem Rheumatoid arthritis involving multiple sites with positive rheumatoid factor M05.79 Active 114541960 Problem Osteoarthritis M19.90 Active 329695314 Problem Chronic alcoholic liver disease K70.9 Active 184652432 Problem Arthritis M19.90 Active 3534128 ALLERGIES No Information ENCOUNTERS Encounter Location Date Diagnosis [facility] [address] [address] May, Rheumatoid arthritis involving multiple sites with positive rheumatoid factor M05.79 [facility] [id number] [place] [address] 37472- 9798 Apr, Rheumatoid arthritis involving multiple sites with positive rheumatoid factor M05.79 [facility] [id number] [place] [address] 50964- 2806 Apr, Rheumatoid arthritis involving multiple sites with positive rheumatoid factor M05.79 [facility] [id number] [place] [address] Apr, Rheumatoid arthritis involving multiple sites with positive rheumatoid factor M05.79 ; Other chronic pain G89.29 and Cellulitis, unspecified cellulitis site L03.90 [facility] [id number] [place] [address] 17350- 4668 Apr, [facility] [address] [address] Apr, Other chronic pain G89.29 ; Rheumatoid arthritis involving multiple sites with positive rheumatoid factor M05.79 and Cellulitis, unspecified cellulitis site L03.90 [facility] [address], [place] [address] Apr, [facility] [address], [place] [address] Feb, [facility] [id number] [place] [address]86- 1302 Feb, Rheumatoid arthritis involving multiple sites with positive rheumatoid factor M05.79 ; Chronic alcoholic liver disease K70.9 and Lipoma D17.9 [facility] [address], [place] [address] Feb, [facility] [address] [address] Feb, Chronic alcoholic liver disease K70.9 and Rheumatoid arthritis involving multiple sites with positive rheumatoid factor M05.79 [facility] [address], [place] [address] Jan, [facility] [address], [place] [address] Jan, [facility] [address], [place] [address] 16[address] Dec, Rheumatoid arthritis involving multiple sites with positive rheumatoid factor M05.79 [facility] [address], [place] [address] 267[address] Dec, Arthritis M19.90 [facility] [address], [place] [address] November, [facility] [address], [place] [address] Oct, [facility] [address], [place] [address] Sep, [facility] [address] [place] [address] 65675- 7501 Aug, Rheumatoid arthritis involving multiple sites with positive rheumatoid factor M05.79 [place] [id number] [place] [address] 37644- 3753 Jul, Rheumatoid arthritis involving multiple sites with positive rheumatoid factor M05.79 and Alcoholism F10.20 [place] [address] [address] Jun, [place] [address] [address] May, Alcoholism F10.20 ; Hypertension I10 ; Rheumatoid arthritis involving multiple sites with positive rheumatoid factor M05.79 and Encounter for immunization Z23 [place] [address] [address] Apr, Rheumatoid arthritis involving multiple sites, unspecified rheumatoid factor presence M06.9 and Hypertension I10 [place] [id number] [place] [address]20- 5213 Feb, [place] [address] [address]- 240[address] Feb, Hypertension I10 ; Rheumatoid arthritis involving multiple sites, unspecified rheumatoid factor presence M06.9 and Alcoholism F10.20 [facility] [id number] [place] [address] -9409 Jan, Lower extremity edema R60.0 and Cellulitis of left lower limb L03.116 [place] [id number] [place] [address] 47640- 2913 Aug, [place] [address] [address]- 480[address] Aug, [place] [id number] [place] [address] 08934- 8448 Aug, Osteoarthritis M19.90 ; Hypertension I10 and Alcoholism F10.20 [facility] [address] [facility] [id number] [place] [address] Jan, [facility] [id number] [address] Dec, Herpes zoster 053.9 [facility] [id number], [place] [address] 6[address] Mar, [facility] [id number], [place] [address] Mar, [facility] [id number], [place] [address] Dec, [facility] [id number], [place] [address] Dec, IMMUNIZATIONS No Known Immunizations SOCIAL HISTORY Never Assessed REASON FOR VISIT medication refill/housing note PLAN OF CARE VITAL SIGNS MEDICATIONS Medication Instructions Dosage Frequency Start Date End Date Duration Status PredniSONE 5 MG Orally Once a day 2 tablets 24h Jul, 90 days Active Methotrexate 2.5 MG Orally once weekly 4 tablets weekly Feb, Active Meloxicam 15 mg Orally Once a day 1 tablet 24h Apr, 90 days Active Folic Acid 1 MG Orally Once a day on days you do not take methotrexate 1 tablet May, 90 days Active RESULTS No Results PROCEDURES No [...]
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
--- OUTSIDE RECORDS SUMMARY | 2018-08-31 13:46 | XMS REPORT ---
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 Role Phone JOHN OLVERA Unavailable PROBLEMS Type Condition ICD9-CM Code ZSN70-DD Code Onset Dates Condition Status SNOMED Code Problem Alcoholism F10.20 Active 4608938 Problem Hypertension I10 Active 38098040 Problem Other chronic pain G89.29 Active 83608621 Problem Alcoholic liver disease K70.9 Active 03193827 Problem Rheumatoid arthritis involving multiple sites with positive rheumatoid factor M05.79 Active 670866379 Problem Osteoarthritis M19.90 Active 252053981 Problem Chronic alcoholic liver disease K70.9 Active 839347409 Problem Arthritis M19.90 Active 7381272 ALLERGIES No Information ENCOUNTERS Encounter Location Date Diagnosis [facility] [id number] [place] [address]- [address]661 May, [facility] [address] [address] May, Rheumatoid arthritis involving multiple sites with positive rheumatoid factor M05.79 [facility] [id number] [place] [address] 03908- 4719 Apr, Rheumatoid arthritis involving multiple sites with positive rheumatoid factor M05.79 [facility] [id number] [place] [address] 36794- 6689 Apr, Rheumatoid arthritis involving multiple sites with positive rheumatoid factor M05.79 [facility] [address] [address] Apr, Rheumatoid arthritis involving multiple sites with positive rheumatoid factor M05.79 ; Other chronic pain G89.29 and Cellulitis, unspecified cellulitis site L03.90 [facility] [address] [address] Apr, [facility] [id number], [place] [address] Apr, Other chronic pain G89.29 ; Rheumatoid arthritis involving multiple sites with positive rheumatoid factor M05.79 and Cellulitis, unspecified cellulitis site L03.90 [facility] [address], [place] [address]- 0[address] Apr, [facility] [id number] [place] [address] 68369- 9076 Feb, [facility] [id number] [place] [address] 13902- 9304 Feb, Rheumatoid arthritis involving multiple sites with positive rheumatoid factor M05.79 ; Chronic alcoholic liver disease K70.9 and Lipoma D17.9 [facility] [address], [place] [address]- 12[address] Feb, [facility] [id number] [place] [address] 52503- 2133 Feb, Chronic alcoholic liver disease K70.9 and Rheumatoid arthritis involving multiple sites with positive rheumatoid factor M05.79 [facility] [id number] [place] [address] 85488- 4937 Jan, [facility] [address], [place] [address]- 4[address] Jan, [facility] [address] [place] [address] 38510- 3800 Dec, Rheumatoid arthritis involving multiple sites with positive rheumatoid factor M05.79 [facility] [id number] [place] [address] 32061- 2517 Dec, Arthritis M19.90 [facility] [address], [place] [address]- 8369 November, [facility] [address], [place] [address]- 0893 Oct, [facility] [id number] [place] [address] 65515- 8500 Sep, [facility] [address] [address]- 4208 Aug, Rheumatoid arthritis involving multiple sites with positive rheumatoid factor M05.79 [facility] [address] [address]- 1725 Jul, Rheumatoid arthritis involving multiple sites with positive rheumatoid factor M05.79 and Alcoholism F10.20 [place] [address] [address]- [address] Jun, [place] [address] [address]- 5058 May, Alcoholism F10.20 ; Hypertension I10 ; Rheumatoid arthritis involving multiple sites with positive rheumatoid factor M05.79 and Encounter for immunization Z23 [place] [address] [address]- 6724 Apr, Rheumatoid arthritis involving multiple sites, unspecified rheumatoid factor presence M06.9 and Hypertension I10 [place] [address] 08484- 7096 Feb, [place] [address] [address]- 8981 Feb, Hypertension I10 ; Rheumatoid arthritis involving multiple sites, unspecified rheumatoid factor presence M06.9 and Alcoholism F10.20 [facility] [id number] [place] [address]99 -[address]70 Jan, Lower extremity edema R60.0 and Cellulitis of left lower limb L03.116 [facility] [address] 75[address]- 7216 Aug, [facility] [address] [address]- 4801 Aug, [place] [address] [address]- 4551 Aug, Osteoarthritis M19.90 ; Hypertension I10 and Alcoholism F10.20 [facility] [address], [place] [address]- 9163 Jan, [facility] [address] [address]- 1503 Dec, Herpes zoster 053.9 [facility] [id number] [place] [address] 54067- 3292 Mar, [facility] [id number] [place] [address] 66099- 7606 Mar, [facility] [address] [place] [address] 31877- 5240 Dec, [facility] [address], [place] [address]- 6358 Dec, IMMUNIZATIONS No Known Immunizations SOCIAL HISTORY [...]
--- OUTSIDE RECORDS SUMMARY | 2018-08-31 13:49 | XMS REPORT | Continuity of Care Document ---
Author Author [facility] of [facility] Address Unknown Phone Unavailable Allergies [...] ENCOUNTER FOR OTHER PREPROCEDURAL EXAMIN 03/31/2018 GREG DO, KOBE B Ot F17.210 NICOTINE DEPENDENCE, CIGARETTES, UNCOMPL 03/31/2018 GREG DO, KOBE B Ot G62.9 POLYNEUROPATHY, UNSPECIFIED 03/31/2018 ALBERTINAMAN DO, KOBE B Ot I10 ESSENTIAL (PRIMARY) HYPERTENSION 03/31/2018 GREG DO, KOBE B Ot L72.0 EPIDERMAL CYST 03/31/2018 ALBERTINAMAN DO, KOBE B Ot M19.90 UNSPECIFIED OSTEOARTHRITIS, UNSPECIFIED 03/31/2018 DELMAN DO, KOBE B Ot Z11.2 ENCOUNTER FOR SCREENING FOR OTHER BACTER 03/31/2018 GREG DO, KOBE B Ot Z79.52 CORRECTION (CURRENT) USE OF SYSTEMIC STER 04/05/2018 GREG DO, KOBE B Ot F17.210 NICOTINE DEPENDENCE, CIGARETTES, UNCOMPL 04/05/2018 GREG DO, KOBE B Ot G62.9 POLYNEUROPATHY, UNSPECIFIED 04/05/2018 ALBERTINAMAN DO, KOBE B Ot I10 ESSENTIAL (PRIMARY) HYPERTENSION 04/05/2018 GREG DO, KOBE B Ot L72.0 EPIDERMAL CYST 04/05/2018 DELMAN DO, KOBE B Ot M19.90 UNSPECIFIED OSTEOARTHRITIS, UNSPECIFIED 04/05/2018 DELMAN DO, KOBE B Ot Z11.2 ENCOUNTER FOR SCREENING FOR OTHER BACTER 04/05/2018 GREG DO, KOBE B Ot Z79.52 CORRECTION (CURRENT) USE OF SYSTEMIC STER 04/09/2018 GREG DO, KOBE B Ot F17.210 NICOTINE DEPENDENCE, CIGARETTES, UNCOMPL 04/09/2018 ALBERTINAMAN DO, KOBE B Ot G62.9 POLYNEUROPATHY, UNSPECIFIED 04/09/2018 DELMAN DO, KOBE B Ot I10 ESSENTIAL (PRIMARY) HYPERTENSION 04/09/2018 DELMAN DO, KOBE B Ot L72.0 EPIDERMAL CYST 04/09/2018 DELMAN DO, KOBE B Ot M19.90 UNSPECIFIED OSTEOARTHRITIS, UNSPECIFIED 04/09/2018 DELMAN DO, KOBE B Ot Z11.2 ENCOUNTER FOR SCREENING FOR OTHER BACTER 04/09/2018 DELJULIANNE DO, KOBE B Ot Z79.52 CORRECTION (CURRENT) USE OF SYSTEMIC STER 05/12/2018 WILLIAM ALLEN APRN Ot F10.10 ALCOHOL ABUSE, UNCOMPLICATED 05/12/2018 WILLIAM ALLEN APRN Ot F17.210 NICOTINE DEPENDENCE, CIGARETTES, UNCOMPL 05/12/2018 WILLIAM ALLEN APRN Ot I10 ESSENTIAL (PRIMARY) HYPERTENSION 05/12/2018 WILLIAM ALLEN APRN Ot M19.041 PRIMARY OSTEOARTHRITIS, RIGHT HAND 05/12/2018 WILLIAM ALLEN APRN Ot M19.042 PRIMARY OSTEOARTHRITIS, LEFT HAND 05/12/2018 WILLIAM ALLEN APRN Ot M79.89 OTHER SPECIFIED SOFT TISSUE DISORDERS 05/12/2018 WILLIAM ALLEN APRN Ot Z79.52 SAP ABAP PROGRAMMER (CURRENT) USE OF SYSTEMIC STER 05/12/2018 WILLIAM ALLEN APRN Ot Z87.19 PERSONAL HISTORY OF OTHER DISEASES OF 05/17/2018 WILLIAM ALLEN APRN Ot F10.10 ALCOHOL ABUSE, UNCOMPLICATED 05/17/2018 WILLIAM ALLEN APRN Ot F17.210 NICOTINE DEPENDENCE, CIGARETTES, UNCOMPL 05/17/2018 WILLIAM ALLEN APRN Ot I10 ESSENTIAL (PRIMARY) HYPERTENSION 05/17/2018 WILLIAM ALLEN APRN Ot M19.041 PRIMARY OSTEOARTHRITIS, RIGHT HAND 05/17/2018 WILLIAM ALLEN APRN Ot M19.042 PRIMARY OSTEOARTHRITIS, LEFT HAND 05/17/2018 WILLIAM ALLEN APRN Ot M79.89 OTHER SPECIFIED SOFT TISSUE DISORDERS 05/17/2018 WILLIAM ALLEN APRN Ot Z79.52 SAP ABAP PROGRAMMER (CURRENT) USE OF SYSTEMIC STER 05/17/2018 WILLIAM ALLEN APRN Ot Z87.19 PERSONAL HISTORY OF OTHER DISEASES OF 06/08/2018 DELMAN DO, KOBE B Ot F17.210 NICOTINE DEPENDENCE, CIGARETTES, UNCOMPL 06/08/2018 DELMAN DO, KOBE B Ot G62.9 POLYNEUROPATHY, UNSPECIFIED 06/08/2018 DELMAN DO, KOBE B Ot I10 ESSENTIAL (PRIMARY) HYPERTENSION 06/08/2018 DELMAN DO, KOBE B Ot L72.0 EPIDERMAL CYST 06/08/2018 DELMAN DO, KOBE B Ot M19.90 UNSPECIFIED OSTEOARTHRITIS, UNSPECIFIED 06/08/2018 DELMAN DO, KOBE B Ot Z11.2 ENCOUNTER FOR SCREENING FOR OTHER BACTER 06/08/2018 DELMAN DO, KOBE B Ot Z79.52 CORRECTION (CURRENT) USE OF SYSTEMIC STER 06/17/2018 MAIK, ANGELA ELECTROPHYSIOLOGY TECH Ot F12.10 CANNABIS ABUSE, UNCOMPLICATED 06/17/2018 MAIK, ANGELA ELECTROPHYSIOLOGY TECH Ot F17.210 NICOTINE DEPENDENCE, CIGARETTES, UNCOMPL 06/17/2018 MAIK, ANGELA ELECTROPHYSIOLOGY TECH Ot I10 ESSENTIAL (PRIMARY) HYPERTENSION 06/17/2018 MAIK, ANGELA ELECTROPHYSIOLOGY TECH Ot I73.9 PERIPHERAL VASCULAR DISEASE, UNSPECIFIED 06/17/2018 MAIK, ANGELA ELECTROPHYSIOLOGY TECH Ot M19.041 PRIMARY OSTEOARTHRITIS, RIGHT HAND 06/17/2018 MAIK, ANGELA ELECTROPHYSIOLOGY TECH Ot M19.042 PRIMARY OSTEOARTHRITIS, LEFT HAND 06/17/2018 MAIK, ANGELA ELECTROPHYSIOLOGY TECH Ot M19.071 PRIMARY OSTEOARTHRITIS, RIGHT ANKLE AND 06/17/2018 MAIK, ANGELA ELECTROPHYSIOLOGY TECH Ot M19.072 PRIMARY OSTEOARTHRITIS, LEFT ANKLE AND F 06/17/2018 MAIK, ANGELA ELECTROPHYSIOLOGY TECH Ot M79.641 PAIN IN RIGHT HAND 06/17/2018 MAIK, ANGELA ELECTROPHYSIOLOGY TECH Ot Z79.52 SAP ABAP PROGRAMMER (CURRENT) USE OF SYSTEMIC STER 06/17/2018 MAIK, ANGELA ELECTROPHYSIOLOGY TECH Ot Z87.19 PERSONAL HISTORY OF OTHER DISEASES OF 06/17/2018 MAIK, ANGELA ELECTROPHYSIOLOGY TECH Ot F12.10 CANNABIS ABUSE, UNCOMPLICATED 06/17/2018 MAIK, ANGELA ELECTROPHYSIOLOGY TECH Ot F17.210 NICOTINE DEPENDENCE, CIGARETTES, UNCOMPL 06/17/2018 MAIK, ANGELA ELECTROPHYSIOLOGY TECH Ot I10 ESSENTIAL (PRIMARY) HYPERTENSION 06/17/2018 MAIK, ANGELA ELECTROPHYSIOLOGY TECH Ot I73.9 PERIPHERAL VASCULAR DISEASE, UNSPECIFIED 06/17/2018 MAIK, ANGELA ELECTROPHYSIOLOGY TECH Ot M19.041 PRIMARY OSTEOARTHRITIS, RIGHT HAND 06/17/2018 AMIK, ANGELA ELECTROPHYSIOLOGY TECH Ot M19.042 PRIMARY OSTEOARTHRITIS, LEFT HAND 06/17/2018 MAIK, ANGELA ELECTROPHYSIOLOGY TECH Ot M19.071 PRIMARY OSTEOARTHRITIS, RIGHT ANKLE AND 06/17/2018 MAIK, ANGELA ELECTROPHYSIOLOGY TECH Ot M19.072 PRIMARY OSTEOARTHRITIS, LEFT ANKLE AND F 06/17/2018 MAIK, ANGELA ELECTROPHYSIOLOGY TECH Ot M79.641 PAIN IN RIGHT HAND 06/17/2018 MAIK, ANGELA ELECTROPHYSIOLOGY TECH Ot Z79.52 CORRECTION (CURRENT) USE OF SYSTEMIC STER 06/17/2018 MAIK, ANGELA ELECTROPHYSIOLOGY TECH Ot Z87.19 PERSONAL HISTORY OF OTHER DISEASES OF Procedures There is no data. Results Test [...] 02/07/17 20:53 Blood monocytes/100 leukocytes 10 % NR Manual blood segmented neutrophils/100 leukocytes 21 % [...] - 02/17/18 13:43 ABSOLUTE NEUTROPHILS 2067 cells/uL [id number] ABSOLUTE MONOCYTES 551 cells/uL 200-950 ABSOLUTE EOSINOPHILS [...] Staphylococcus aureus (MRSA) screening culture NEG NRG Complete blood count (CBC) with automated white blood cell (WBC) differential - 05/12/18 11:19 Blood leukocytes automated count (number/volume) 6.4 10*3/uL 4.3-11.0 Blood erythrocytes automated count (number/volume) 3.98 10*6/uL 4.35-5.85 Venous blood hemoglobin measurement (mass/volume) 13.3 g/dL 13.3-17.7 Blood hematocrit (volume fraction) 40 % 40-54 Automated erythrocyte mean corpuscular volume 100 [foz_us] 80-99 Automated erythrocyte mean corpuscular hemoglobin (mass per erythrocyte) 33 pg 25-34 Automated erythrocyte mean corpuscular hemoglobin concentration measurement ( mass/volume) 34 g/dL 32-36 Automated erythrocyte distribution width ratio 14.4 % 10.0-14.5 Automated blood platelet count (count/volume) 236 10*3/uL 130-400 Automated blood platelet mean volume measurement 8.9 [foz_us] 7.4-10.4 Automated blood neutrophils/100 leukocytes 63 % 42-75 Automated blood lymphocytes/100 leukocytes 22 % 12-44 Blood monocytes/100 leukocytes 13 % 0-12 Automated blood eosinophils/100 leukocytes 2 % 0-10 Automated blood basophils/100 leukocytes 0 % 0-10 Blood neutrophils automated count (number/volume) 4.0 10*3 1.8-7.8 Blood lymphocytes automated count (number/volume) 1.4 10*3 1.0-4.0 Blood monocytes automated count (number/volume) 0.9 10*3 0.0-1.0 Automated eosinophil count 0.1 10*3/uL 0.0-0.3 Automated blood basophil count (count/volume) 0.0 10*3/uL 0.0-0.1 Comprehensive metabolic panel - 05/12/18 11:19 Serum or plasma sodium measurement (moles/volume) 132 mmol/L 135-145 Serum or plasma potassium measurement (moles/volume) 4.2 mmol/L 3.6-5.0 Serum or plasma chloride measurement (moles/volume) 98 mmol/L 98-107 Carbon dioxide 21 mmol/L 21-32 Serum or plasma anion gap determination (moles/volume) 13 mmol/L 5-14 Serum or plasma urea nitrogen measurement (mass/volume) 7 mg/dL 7-18 Serum or plasma creatinine measurement (mass/volume) 0.69 mg/dL 0.60-1.30 Serum or plasma urea nitrogen/creatinine mass ratio 10 NRG Serum or plasma creatinine measurement with calculation of estimated glomerular filtration rate > NRG Serum or plasma glucose measurement (mass/volume) 114 mg/dL 70-105 Serum or plasma calcium measurement (mass/volume) 9.2 mg/dL 8.5-10.1 Serum or plasma total bilirubin measurement (mass/volume) 0.9 mg/dL 0.1-1.0 Serum or plasma alkaline phosphatase measurement (enzymatic activity/volume) 68 U/L 40-136 Serum or plasma aspartate aminotransferase measurement (enzymatic activity/ volume) 35 U/L 5-34 Serum or plasma alanine aminotransferase measurement (enzymatic activity/volume ) 30 U/L 0-55 Serum or plasma protein measurement (mass/volume) 7.3 g/dL 6.4-8.2 Serum or plasma albumin measurement (mass/volume) 3.3 g/dL 3.2-4.5 CALCIUM CORRECTED 9.8 mg/dL 8.5-10.1 Erythrocyte sedimentation rate by westergren method - 05/12/18 11:19 Erythrocyte sedimentation rate by westergren method 76 mm 0-30 THYROID STIMULATING HORMONE - 05/12/18 11:19 THYROID STIMULATING HORMONE 2.83 u[iU]/mL 0.35-4.94 Serum or plasma thyroxine (T4) free measurement (mass/volume) - 05/12/18 11:19 Serum or plasma thyroxine (T4) free measurement (mass/volume) 0.92 ng/dL 0.70-1.48 Serum or plasma ethanol measurement (mass/volume) - 05/12/18 11:19 Serum or plasma ethanol measurement (mass/volume) < mg/dL <10 Encounters ACCT No. Visit Date/Time Discharge Status Pt. Type Provider Facility Loc./Unit Complaint [id number] 12/03/2011 10:19:00 12/03/2011 23:59:59 CLS Outpatient GABRIELLA MAHAJAN APRN [id number] 02/17/2018 12:40:00 02/17/2018 23:59:59 CLS Outpatient EDEN KIDD MD [facility] [id number] 02/17/2018 12:40:00 Document Registration [id number] 03/09/2017 17:20:00 Document Registration [id number] 06/15/2018 10:18:00 06/15/2018 13:50:00 DIS Outpatient ANGELA PLEITEZ [facility] ER HAND AND FEET PAIN [id number] 05/12/2018 10:54:00 05/12/2018 12:56:00 DIS Emergency WILLIAM ALLEN APRN [facility] ER ARTHRITIS [id number] 03/31/2018 09:50:00 03/31/2018 23:59:59 CLS Outpatient KOBE GARZA DO [facility] SDC MASS RIGHT CHEEK [id number] 03/29/2018 05:28:00 03/29/2018 12:41:00 DIS Outpatient KOBE GARZA DO [facility] PREOP MASS RIGHT CHEEK [id number] 02/07/2017 20:35:00 02/07/2017 22:22:00 DIS Emergency WILLIAM ALLEN APRN [facility] ER GENERAL SWELLING [id number] 03/02/2016 19:13:00 03/02/2016 19:24:00 DIS Emergency GABRIELLA FIELDS DO [facility] ER R EYE LAC [id number] 01/12/2015 16:07:00 01/12/2015 17:03:00 DIS Emergency JANELL STINSON [facility] ER RASH [id number] 02/22/2014 12:14:00 02/22/2014 14:20:00 DIS Emergency JANELL STINSON [facility] ER BACK PAIN [id number] 08/31/2018 13:42:00 ACT Emergency RAIN WOLFF MD [facility] ER GENERAL JOINT PAIN [id number] 03/11/2017 18:09:00 Document Registration
[2018-08-31] MEDS ORDERED: PRD20T PO (14:14)
[2018-08-31] MEDS ORDERED: HYDR-34 PO (14:14)
--- NOTE | 2018-08-31 14:15 | ED General ---
General Chief Complaint: General Problems/Pain Stated Complaint: GENERAL JOINT PAIN Nursing Triage Note: PT REPORTS HIS ARTHRISTIS PAIN HAS FLARED UP AGAIN TO THE POINT HE CANT STAND THE PAIN. RATES IT 04/28 DESPITE PO PAIN MEDS. STATES HE COMES HERE ALL THE TIME FOR THIS PROBLEM. Nursing Sepsis Screen: No Definite Risk Source of Information: Patient Exam Limitations: No Limitations History of Present Illness Date Seen by Provider: Aug 31, 2018 Time Seen by Provider: 14:10 Initial Comments 58-year-old male who presents to the emergency room with complaints of arthritis pain has flared up. Allergies and Home Medications Allergies Coded Allergies: NKANo Known Allergies (Unverified Allergy, Mild, 03/29/18) Home Medications Folic Acid 0.8 Mg Tablet, 0.8 MG PO DAILY, (Reported) Hydrocodone Bit/Acetaminophen 1 Ea Tablet, 1 EA PO Q6H PRN for PAIN-MODERATE Prescribed by: ASHER BALLARD on 08/31/18 1414 Hydrocodone/Acetaminophen 1 Each Tablet, 1 TAB PO Q6H Prescribed by: KOBE GARZA on 03/31/18 1049 Hydrocodone/Acetaminophen 1 Each Tablet, 1 EACH PO Q6H PRN for PAIN-MODERATE Prescribed by: WILLIAM ALLEN on 05/12/18 1240 Hydrocodone/Acetaminophen 1 Each Tablet, 1 EACH PO Q8H PRN for PAIN-SEVERE Prescribed by: ANGELA PLEITEZ on 06/15/18 1308 Methotrexate Sodium 2.5 Mg Tablet, 10 MG PO WEEK, (Reported) Prednisone 20 Mg Tab, 20 MG PO DAILY take 3 tablets once daily for 5 days; then take 2 tables once daily for 5 days; then take 1 tablet once daily for 5 days. Prescribed by: ANGELA PLEITEZ on 06/15/18 1308 Prednisone 20 Mg Tab, 20 MG PO DAILY take 3 tablets once daily for 5 days; then take 2 tables once daily for 5 days; then take 1 tablet once daily for 5 days. Prescribed by: ASHER BALLARD on 08/31/18 1414 Past Lzmnyxu-Ggonmq-Rdncmp Hx Patient Social History Alcohol Use: Regular Use Number of Drinks Today: AA Alcohol Beverage of Choice: Beer Recreational Drug Use: No Drug of Choice: THC Type Used: Cigarettes Recent Foreign Travel: No Contact w/Someone Who Travel: No Recent Infectious Disease Expo: No Recent Hopitalizations: No Physical Abuse: No Sexual Abuse: No Immunizations Up To Date Date of Pneumonia Vaccine: May 04, 2017 Date of Influenza Vaccine: May 04, 2017 Seasonal Allergies Seasonal Allergies: No Past Medical History Surgeries: No Respiratory: Yes (COUGH) Cardiac: Yes Hypertension Neurological: No Reproductive Disorders: No Sexually Transmitted Disease: No HIV/AIDS: No Gastrointestinal: Yes Liver Disease/Jaundice Musculoskeletal: Yes Arthritis, Chronic Back Pain Endocrine: No Loss of Vision: Bilateral Hearing Impairment: Denies Cancer: No Psychosocial: No Integumentary: No Blood Disorders: No Adverse Reaction/Blood Tranf: No (N/A) Family Medical History No Pertinent Family Hx Physical Exam Vital Signs Vital Signs - First Documented 08/31/18 13:55 Temp 97.5 Pulse 116 Resp 16 B/P (MAP) 157/97 (117) Pulse Ox 96 Capillary Refill : Less Than 3 Seconds Height, Weight, BMI Height: 5'8.00" Weight: 248lbs. 0.0oz. 112.921014ye; 34.4 BMI Method:Stated Progress/Results/Core Measures Suspected Sepsis Recent Fever Within 48 Hours: No Infection Criteria Present: None New/Unexplained Altered Menta: No Sepsis Screen: No Definite Risk SIRS Temperature:97.5 Pulse: 116 Respiratory Rate: 16 Blood Pressure 157 /97 Mean: 117 Results/Orders Vital Signs/I&O 08/31/18 13:55 Temp 97.5 Pulse 116 Resp 16 B/P (MAP) 157/97 (117) Pulse Ox 96 Capillary Refill : Less Than 3 Seconds Blood Pressure Mean: 117 Departure Impression Primary Impression: Degenerative joint disease Disposition: 01 HOME, SELF-CARE Condition: Stable/Unchanged Departure-Patient Inst. Decision time for Depature: 14:12 Referrals: JOCELYNE FRANK,LOCAL PHYSICIAN (PCP) Primary Care Physician Patient Instructions: Arthritis and Exercise, CHRONIC PAIN Add. Discharge Instructions: Take medications as directed. Call [facility] today for an appointment pain to establish chronic pain management. Return back to the emergency room for worsening symptoms or concerns as needed. All discharge instructions reviewed with patient and/or family. Voiced understanding. Scripts Hydrocodone Bit/Acetaminophen (LORTAB 7.5 MG TABLET) 1 Ea Tablet 1 EA PO Q6H PRN for PAIN-MODERATE, #20 TAB Prov: ASHER BALLARD 08/31/18 Prednisone (Prednisone) 20 Mg Tab 20 MG PO DAILY, #30 TAB take 3 tablets once daily for 5 days; then take 2 tables once daily for 5 days; then take 1 tablet once daily for 5 days. Prov: ASHER BALLARD 08/31/18 ASHER BALLARD Aug 31, 2018 14:15
[2018-08-31 14:24] VITALS: BP 157/97
== END 2018-08-31 14:24 | disposition home or self-care (01) ==
LOC: EDUNIT# 13:39 → ER 13:42
DX: M19.90 Unspecified osteoarthritis, unspecified site (principal); I10 Essential (primary) hypertension; Z87.09 Personal history of other diseases of the respiratory system; Z87.19 Personal history of other diseases of the digestive system; Z79.52 Long term (current) use of systemic steroids
CPT/HCPCS: 99281

== ENCOUNTER 2018-10-21 09:08 | Observation (INO) | payer SELFPAY ==
[~2018-10-21] VITALS: Ht 172.7 cm; Wt 117.9 kg
[~2018-10-21 09:08] MED LIST changes: +HYDR-34 PO
[2018-10-21] MEDS ORDERED: ONDANSETRON 4 MG/2 ML (SDV) Z0FRAN IVP PRN (11:15)
[2018-10-21] MEDS ORDERED: DOCUSATE SODIUM 100 MG (COLACE) CAP PO PRN (11:15)
[2018-10-21] MEDS ORDERED: FUROSEMIDE 40 MG/4 ML INJ (LASIX) IVP NR (11:15)
[2018-10-21] MEDS ORDERED: PATIENT MAY USE OWN MEDS, ALL PO SCH (11:15)
[2018-10-21] MEDS ORDERED: 1/2 NS IV SOLUTION 1,000 ML IV PRN (11:20)
[2018-10-21] MEDS ORDERED: LORazepam 1 MG (ATIVAN) TAB PO PRN (11:30)
[2018-10-21] MEDS ORDERED: ANTACID SUSP 30 ML UDC (MYLANTA) PO PRN (11:30)
[2018-10-21] MEDS ORDERED: LORazepam INJ 2 MG/ML (ATIVAN) VIAL IV PRN (11:30)
[2018-10-21] MEDS ORDERED: LORazepam INJ 2 MG/ML (ATIVAN) VIAL IM/IV PRN (11:30)
[2018-10-21] MEDS ORDERED: ONDANSETRON 4 MG (ZOFRAN) ORAL DISSOLVE TAB SL PRN (11:30)
[2018-10-21] MEDS ORDERED: D5 1/2 NS 1000 ML IV SOLUTION 1,000 ML IV PRN (11:30)
[2018-10-21] MEDS ORDERED: SENNA W/DOCUSATE (SENOKOT S) TABLET PO PRN (11:30)
[2018-10-21 11:49] VITALS: BP 136/78
--- NOTE | 2018-10-21 12:00 | NUR ---
ERYN WOMACK admitted to room 422-1, with an admitting diagnosis of fluid overload, on 10/21/18 direct admit from [facility] .ERYN WOMACK introduced to surroundings, call light, bed controls, phone, TV, temperature control, lights, meal times, smoking policy, visitor policy, side rail policy, bathrooms and showers. Patient Rights given to patient in the handbook. ERYN WOMACK verbalizes understanding that [facility] is not responsible for the loss or damage to any personal effects or valuables that are kept in the patients posession during their hospitalization. The following Patient Care Plans and discharge. ERYN WOMACK verbalizes understanding of Interdisciplinary Patient Education.
[2018-10-21] MEDS: predniSONE 10 MG TAB PO SCH (12:39)
[2018-10-21 12:56] LABS: BASOPHILS % (AUTO) 0 % (0-10); EOSINOPHILS # (AUTO) 0.1 10^3/uL (0.0-0.3); EOSINOPHILS % (AUTO) 1 % (0-10); HEMATOCRIT 39 % (40-54); HEMOGLOBIN 12.9 G/DL (13.3-17.7); LYMPHOCYTES # (AUTO) 1.2 X 10^3 (1.0-4.0); LYMPHOCYTES % (AUTO) 20 % (12-44); MEAN CORPUSCULAR HEMOGLOBIN 29 PG (25-34); MEAN CORPUSCULAR HGB CONC 33 G/DL (32-36); MEAN CORPUSCULAR VOLUME 89 FL (80-99); MEAN PLATELET VOLUME 9.5 FL (7.4-10.4); MONOCYTES # (AUTO) 0.6 X 10^3 (0.0-1.0); MONOCYTES % (AUTO) 10 % (0-12); NEUTROPHILS # (AUTO) 4.3 X 10^3 (1.8-7.8); NEUTROPHILS % (AUTO) 69 % (42-75); PLATELET COUNT 271 10^3/uL (130-400); RED CELL DISTRIBUTION WIDTH 15.2 % (10.0-14.5); WHITE BLOOD COUNT 6.3 10^3/uL (4.3-11.0)
[2018-10-21 13:37] LABS: ALANINE AMINOTRANSFERASE 31 U/L (0-55); ALBUMIN 3.5 GM/DL (3.2-4.5); ALKALINE PHOSPHATASE 72 U/L (40-136); BILIRUBIN,TOTAL 0.4 MG/DL (0.1-1.0); BUN/CREATININE RATIO 11; CALCIUM 9.8 MG/DL (8.5-10.1); CARBON DIOXIDE 21 MMOL/L (21-32); CHLORIDE 101 MMOL/L (98-107); CREATININE SERUM 0.72 MG/DL (0.60-1.30); GFR ESTIMATED > 60; GLUCOSE 93 MG/DL (70-105); POTASSIUM 4.5 MMOL/L (3.6-5.0); SODIUM 134 MMOL/L (135-145); TOTAL PROTEIN 7.4 GM/DL (6.4-8.2)
[2018-10-21] MEDS ORDERED: ACETAMINOPHEN 500 MG TAB (TYLENOL) PO PRN (14:30)
[2018-10-21] MEDS ORDERED: OXYC-529 PO (15:00)
[2018-10-21] MEDS ORDERED: ACET-2267 PO (15:01)
[2018-10-21] MEDS ORDERED: ASPI325T32 PO (15:01)
[2018-10-21] MEDS ORDERED: MELO15TA39 PO (15:10)
[2018-10-21] MEDS ORDERED: FOLI1TAB24 PO (15:10)
[2018-10-21] MEDS ORDERED: PRD10T PO (15:10)
[2018-10-21] MEDS ORDERED: FURO20TA4 PO (15:11)
--- NOTE | 2018-10-21 15:11 | NUR ---
SPOKE WITH THE PATIENT ABOUT HIS MEDICATIONS. HE IS UNSURE EXACTLY WHAT HE TAKES BUT STATES IT COMES FROM [facility] AND MOST OF THEM FROM THE REPOSITORY. I CALLED AND SPOKE WITH A NURSE AT [facility] AND SHE TOLD ME WHAT THE PATIENT IS SUPPOSED TO BE TAKING. [facility] FILLED: 10-14-18 OXYCODONE 5MG BID PRN #14 10-13-18 LASIX 20MG DAILY #7 [facility] NURSE REPORTED: METHOTREXATE 2.5MG 4 ONCE WEEKLY RECEIVED FROM REPOSITORY 08-19-18 (PATIENT STATES HE TAKES ON THURSDAYS) MELOXICAM 15MG DAILY (RECEIVED FROM REPOSITORY 08-19-18) PREDNISONE 10MG DAILY (RECEIVED FROM REPOSITORY 08-19-18) FOLIC ACID 1MG DAILY DOES NOT TAKE ON DAYS HE TAKES METHOTREXATE (LAST REPORTED GIVEN TO PATIENT FROM REPOSITORY 05-25-18) PATIENT REPORTS HE TAKES ASPIRIN AND TYLENOL NEEDED FOR PAIN OTC.
--- NOTE | 2018-10-21 16:32 | Diagnostic Imaging Report ---
INDICATION: History of tobacco and alcohol usage. Pain. TECHNIQUE: Two view chest, 1:51 p.m. CORRELATION STUDY: 05/12/2018. FINDINGS: Heart size remains enlarged. Vasculature is slightly prominent. Prominent interstitial markings throughout both lung mark. No consolidating infiltrate. Probable calcified granulomas. Old healed rib fractures. Slightly accentuated thoracic kyphotic curvature and degenerative changes of the thoracic spine. IMPRESSION: Generally stable chest, borderline heart size and vasculature. Dictated by: Dictated on workstation # [id number]
[2018-10-21 16:47] VITALS: BP 145/75
[2018-10-21] MEDS ORDERED: NICOTINE 21 MG (NICODERM) PATCH TD NR (17:00)
[2018-10-21] MEDS: MAGNESIUM OXIDE (MAG-OX)400 MG TAB PO SCH (20:18)
[2018-10-21 21:32] VITALS: BP 135/81
[2018-10-22] VITALS: BP 138/83
[2018-10-22 03:03] VITALS: BP 138/86
[2018-10-22 06:03] LABS: HEMOGLOBIN 12.3 G/DL (13.3-17.7); MEAN PLATELET VOLUME 9.7 FL (7.4-10.4); RED CELL DISTRIBUTION WIDTH 15.2 % (10.0-14.5); WHITE BLOOD COUNT 8.3 10^3/uL (4.3-11.0)
[2018-10-22 06:24] LABS: ALANINE AMINOTRANSFERASE 23 U/L (0-55); ALBUMIN 3.2 GM/DL (3.2-4.5); ALKALINE PHOSPHATASE 69 U/L (40-136); BILIRUBIN,TOTAL 0.4 MG/DL (0.1-1.0); BUN/CREATININE RATIO 18; CALCIUM 9.1 MG/DL (8.5-10.1); CARBON DIOXIDE 26 MMOL/L (21-32); CHLORIDE 102 MMOL/L (98-107); CREATININE SERUM 0.72 MG/DL (0.60-1.30); GFR ESTIMATED > 60; GLUCOSE 94 MG/DL (70-105); POTASSIUM 3.9 MMOL/L (3.6-5.0); SODIUM 135 MMOL/L (135-145); TOTAL PROTEIN 6.9 GM/DL (6.4-8.2)
[2018-10-22] MEDS ORDERED: MULTIVIT W/MINERALS TAB (THERAGRAN M) PO SCH (07:00)
[2018-10-22] MEDS ORDERED: THIAMINE 100 MG (VITAMIN B-1) TAB PO SCH (07:00)
[2018-10-22 08:00] VITALS: BP 136/93
[2018-10-22] MEDS: MAGNESIUM OXIDE (MAG-OX)400 MG TAB PO SCH (08:50)
[2018-10-22] MEDS ORDERED: NICOTINE PATCH REMOVAL TP SCH (08:59)
[2018-10-22] MEDS ORDERED: NICOTINE 21 MG (NICODERM) PATCH TD SCH (09:00)
[2018-10-22] MEDS ORDERED: NON-FORMULARY MEDICATION 1 EA EA (Meloxicam 15 MG) PO SCH (09:00)
[2018-10-22] MEDS ORDERED: MELOXICAM 7.5 MG (MOBIC) TABLET PO SCH (09:00)
[2018-10-22] MEDS ORDERED: FOLIC ACID 1 MG TAB PO SCH (09:00)
[2018-10-22] MEDS: predniSONE 10 MG TAB PO SCH (09:30)
--- NOTE | 2018-10-22 10:30 | NUR ---
CM/SS patient is established at [facility] and working with them for treatment options for A/D counseling.
[2018-10-22] MEDS ORDERED: FURO20TA4 PO (11:05)
[2018-10-22] MEDS ORDERED: OXYC-529 PO (11:05)
[2018-10-22] MEDS ORDERED: PRD10T PO (11:05)
--- NOTE | 2018-10-22 11:28 | Discharge Instructions ---
Discharge [facility] Discharge Medications New, Converted or Re-Newed RX: RX on Chart Changed Medications: Oxycodone HCl (Oxycodone HCl) 5 Mg Tablet 5 MG PO QID PRN for PAIN-SEVERE, #28 TAB 0 Refills (Changed from: BID; Refills: ) Prednisone (Prednisone) 10 Mg Tab 0 PO UD, #30 TAB 0 Refills (Changed from: Removed Units; DAILY; Refills: ) Take 5 tabs(50mg)daily, decrease by 1 tab(10mg) every other day. Continued Medications: Acetaminophen (Tylenol Extra Strength) 500 Mg Tablet 1000 MG PO Q4H PRN for PAIN-MILD, TAB Aspirin (Aspirin EC) 325 Mg Tablet. 325-650 MG PO BID PRN for PAIN-MILD, TAB Folic Acid (Folic Acid) 1 Mg Tablet 1 MG PO SuMoTuWeFrSa, TAB DOES NOT TAKE ON DAYS HE TAKES METHOTREXATE Furosemide (Furosemide) 20 Mg Tablet 20 MG PO DAILY for 7 Days, #7 TAB 0 Refills (This prescription has been renewed) 7 DAY THERAPY FILLED 10-13-18 Meloxicam (Meloxicam) 15 Mg Tablet 15 MG PO DAILY, TAB Methotrexate Sodium (Methotrexate) 2.5 Mg Tablet 10 MG PO Th, TAB TAKES 4 (2.5MG) TABLETS Patient Instructions Goal/Follow Up Appt: Follow up with Dr. Howell on 10/27 at 1020 am. Return to The Hospital For: Fever, severe shortness of breath Activity & Diet Discharge Diet: Low Sodium Diet Activity as Tolerated: Yes Copy Copies To 1: EDEN HOWELL MD, BETHANY N MD Oct 22, 2018 11:06
--- NOTE | 2018-10-22 11:29 | Discharge Summary ---
Diagnosis/Chief Complaint Date of Admission Oct 21, 2018 at 11:35 Date of Discharge October 22, 2018 Admission Diagnosis Admission Diagnosis Acute on chronic pain secondary to rheumatoid arthritis Fluid overload Alcoholism Discharge Diagnosis Acute on chronic pain secondary to rheumatoid arthritis- difficult management due to alcohol use, he states alcohol use minimal and is having such severe pain he is in danger of harming himself. Given oxycodone at 4x per day (was on 2x per day prior) for one week to get to follow up and discuss further planning. Given steroid taper for possible rheumatoid flare. Fluid overload- peripheral edema, no pulmonary edema or hypoxia noted, normal BNP. Given one dose of IV lasix with some improvement. Refilled another week of lasix 20 mg daily. Alcoholism- discussed recommendation for complete cessation. No withdrawal signs inpatient. Chief Complaint/HPI Chief Complaint/HPI 58 yo male with rheumatoid arthritis and liver disease and alcohol use admitted directly from clinic due to worsening edema on oral lasix and uncontrolled pain. Discharge Summary-Simple/Stand Discharge Physical Examination Allergies: Coded Allergies: NKANo Known Allergies (Unverified Allergy, Mild, 03/29/18) Vitals & I&Os Vital Sign - Last 12Hours Date Time Temp Pulse Resp B/P (MAP) Pulse Ox O2 Delivery O2 Flow Rate FiO2 10/22/18 08:00 97.8 78 20 136/93 (107) 92 Room Air Intake and Output 10/22/18 00:00 Intake Total 1920 ml Output Total 1800 ml Balance 120 ml General Appearance: Alert, No Acute Distress HEENT: Other (edentulous) Respiratory: Other (wheezing) Cardiovascular: Regular Rate, No Murmurs Abdominal: Normal Bowel Sounds, Soft Neuro: Normal Speech Psych/Mental Status: Mental Status NL Hospital Course Was the Problem List Reviewed?: No See final discharge diagnosis. Labs Laboratory Tests Test 10/21/18 12:45 10/22/18 05:20 Range/Units White Blood Count 6.3 8.3 4.3-11.0 10^3/uL Red Blood Count 4.40 4.23 L 4.35-5.85 10^6/uL Hemoglobin 12.9 L 12.3 L 13.3-17.7 G/DL Hematocrit 39 L 38 L 40-54 % Mean Corpuscular Volume 89 89 80-99 FL Mean Corpuscular Hemoglobin 29 29 25-34 PG Mean Corpuscular Hemoglobin Concent 33 33 32-36 G/DL Red Cell Distribution Width 15.2 H 15.2 H 10.0-14.5 % Platelet Count 271 258 130-400 10^3/uL Mean Platelet Volume 9.5 9.7 7.4-10.4 FL Neutrophils (%) (Auto) 69 42-75 % Lymphocytes (%) (Auto) 20 12-44 % Monocytes (%) (Auto) 10 0-12 % Eosinophils (%) (Auto) 1 0-10 % Basophils (%) (Auto) 0 0-10 % Neutrophils # (Auto) 4.3 1.8-7.8 X 10^3 Lymphocytes # (Auto) 1.2 1.0-4.0 X 10^3 Monocytes # (Auto) 0.6 0.0-1.0 X 10^3 Eosinophils # (Auto) 0.1 0.0-0.3 10^3/uL Basophils # (Auto) 0.0 0.0-0.1 10^3/uL Sodium Level 134 L 135 135-145 MMOL/L Potassium Level 4.5 3.9 3.6-5.0 MMOL/L Chloride Level 101 102 98-107 MMOL/L Carbon Dioxide Level 21 26 21-32 MMOL/L Anion Gap 12 7 5-14 MMOL/L Blood Urea Nitrogen 8 13 7-18 MG/DL Creatinine 0.72 0.72 0.60-1.30 MG/DL Estimat Glomerular Filtration Rate > 60 > 60 BUN/Creatinine Ratio 11 18 Glucose Level 93 94 70-105 MG/DL Calcium Level 9.8 9.1 8.5-10.1 MG/DL Corrected Calcium 10.2 H 9.7 8.5-10.1 MG/DL Total Bilirubin 0.4 0.4 0.1-1.0 MG/DL Aspartate Amino Transf (AST/SGOT) 48 H 27 5-34 U/L Alanine Aminotransferase (ALT/SGPT) 31 23 0-55 U/L Alkaline Phosphatase 72 69 40-136 U/L B-Type Natriuretic Peptide 98.0 <100.0 PG/ML Total Protein 7.4 6.9 6.4-8.2 GM/DL Albumin 3.5 3.2 3.2-4.5 GM/DL Serum Alcohol 45 H <10 MG/DL Discharge Instructions to patient/family Please see electronic discharge instructions given to patient. Discharge Medications Reviewed and agree with Discharge Medication list on patient's Discharge Instruction sheet Copy Copies To 1: EDEN HOWELL MD, BETHANY N MD Oct 22, 2018 11:29
[2018-10-22 11:55] VITALS: BP 125/83
[2018-10-22 13:58] VITALS: BP 125/83
[2018-10-28] MEDS ORDERED: METHOTREXATE SODIUM 10 MG PO SCH (08:45)
[2018-10-28] MEDS ORDERED: METHOTREXATE 2.5 MG TAB PO SCH (09:00)
--- OUTSIDE RECORDS SUMMARY | 2018-11-01 10:58 | XMS REPORT | Continuity of Care Document ---
Author Organization Unknown Address Unknown Allergies Active Description Code Type Severity Reaction [...] Z01.818 ENCOUNTER FOR OTHER PREPROCEDURAL EXAMIN 03/31/2018 DELMAN DO, KOBE B Ot F17.210 NICOTINE DEPENDENCE, CIGARETTES, UNCOMPL 03/31/2018 DELMAN DO, KOBE B Ot G62.9 POLYNEUROPATHY, UNSPECIFIED 03/31/2018 DELMAN DO, KOBE B Ot I10 ESSENTIAL (PRIMARY) HYPERTENSION 03/31/2018 DELMAN DO, KOBE B Ot L72.0 EPIDERMAL CYST 03/31/2018 DELMAN DO, KOBE B Ot M19.90 UNSPECIFIED OSTEOARTHRITIS, UNSPECIFIED 03/31/2018 DELMAN DO, KOBE B Ot Z11.2 ENCOUNTER FOR SCREENING FOR OTHER BACTER 03/31/2018 DELMAN DO, KOBE B Ot Z79.52 LONGTERM (CURRENT) USE OF SYSTEMIC STER 04/05/2018 DELMAN DO, KOBE B Ot F17.210 NICOTINE DEPENDENCE, CIGARETTES, UNCOMPL 04/05/2018 DELMAN DO, KOBE B Ot G62.9 POLYNEUROPATHY, UNSPECIFIED 04/05/2018 DELMAN DO, KOBE B Ot I10 ESSENTIAL (PRIMARY) HYPERTENSION 04/05/2018 DELMAN DO, KOBE B Ot L72.0 EPIDERMAL CYST 04/05/2018 DELMAN DO, KOBE B Ot M19.90 UNSPECIFIED OSTEOARTHRITIS, UNSPECIFIED 04/05/2018 DELMAN DO, KOBE B Ot Z11.2 ENCOUNTER FOR SCREENING FOR OTHER BACTER 04/05/2018 DELMAN DO, KOBE B Ot Z79.52 LONGTERM (CURRENT) USE OF SYSTEMIC STER 04/09/2018 DELMAN DO, KOBE B Ot F17.210 NICOTINE DEPENDENCE, CIGARETTES, UNCOMPL 04/09/2018 DELMAN DO, KOBE B Ot G62.9 POLYNEUROPATHY, UNSPECIFIED 04/09/2018 DELMAN DO, KOBE B Ot I10 ESSENTIAL (PRIMARY) HYPERTENSION 04/09/2018 DELMAN DO, KOBE B Ot L72.0 EPIDERMAL CYST 04/09/2018 DELMAN DO, KOBE B Ot M19.90 UNSPECIFIED OSTEOARTHRITIS, UNSPECIFIED 04/09/2018 DELMAN DO, KOBE B Ot Z11.2 ENCOUNTER FOR SCREENING FOR OTHER BACTER 04/09/2018 DELMAN DO, KOBE B Ot Z79.52 LONGTERM (CURRENT) USE OF SYSTEMIC STER 05/12/2018 WILLIAM [...] DISORDERS 05/12/2018 WILLIAM ALLEN APRN Ot Z79.52 POSITION CLASSIFICATION MANAGER (CURRENT) USE OF SYSTEMIC STER 05/12/2018 WILLIAM [...] DISORDERS 05/17/2018 WILLIAM ALLEN APRN Ot Z79.52 POSITION CLASSIFICATION MANAGER (CURRENT) USE OF SYSTEMIC STER 05/17/2018 WILLIAM ALLEN APRN Ot Z87.19 PERSONAL HISTORY OF OTHER DISEASES OF 06/08/2018 DELMAN DO, KBOE B Ot F17.210 NICOTINE DEPENDENCE, CIGARETTES, UNCOMPL 06/08/2018 DELJULIANNE DO, KOBE B Ot G62.9 POLYNEUROPATHY, UNSPECIFIED 06/08/2018 DELMAN DO, KOBE B Ot I10 ESSENTIAL (PRIMARY) HYPERTENSION 06/08/2018 DELMAN DO, KOBE B Ot L72.0 EPIDERMAL CYST 06/08/2018 DELMAN DO, KOBE B Ot M19.90 UNSPECIFIED OSTEOARTHRITIS, UNSPECIFIED 06/08/2018 DELMAN DO, KOBE B Ot Z11.2 ENCOUNTER FOR SCREENING FOR OTHER BACTER 06/08/2018 DELJULIANNE DO KOBE B Ot Z79.52 POSITION CLASSIFICATION MANAGER (CURRENT) USE OF SYSTEMIC STER 06/15/2018 MAIK, ANGELA [employer] SUPERVISOR Ot F12.10 CANNABIS ABUSE, UNCOMPLICATED 06/15/2018 MAIK, ANGELA [employer] SUPERVISOR Ot F17.210 NICOTINE DEPENDENCE, CIGARETTES, UNCOMPL 06/15/2018 MAIK, ANGELA [employer] SUPERVISOR Ot I10 ESSENTIAL (PRIMARY) HYPERTENSION 06/15/2018 MAIK, ANGELA [employer] SUPERVISOR Ot I73.9 PERIPHERAL VASCULAR DISEASE, UNSPECIFIED 06/15/2018 MAIK, ANGELA [employer] SUPERVISOR Ot M19.041 PRIMARY OSTEOARTHRITIS, RIGHT HAND 06/15/2018 MAIK, ANGELA [employer] SUPERVISOR Ot M19.042 PRIMARY OSTEOARTHRITIS, LEFT HAND 06/15/2018 MAIK, ANGELA [employer] SUPERVISOR Ot M19.071 PRIMARY OSTEOARTHRITIS, RIGHT ANKLE AND 06/15/2018 MAIK, ANGELA [employer] SUPERVISOR Ot M19.072 PRIMARY OSTEOARTHRITIS, LEFT ANKLE AND F 06/15/2018 MAIK, ANGELA [employer] SUPERVISOR Ot M79.641 PAIN IN RIGHT HAND 06/15/2018 MAIK, ANGELA [employer] SUPERVISOR Ot Z79.52 POSITION CLASSIFICATION MANAGER (CURRENT) USE OF SYSTEMIC STER 06/15/2018 MAIK, ANGELA [employer] SUPERVISOR Ot Z87.19 PERSONAL HISTORY OF OTHER DISEASES OF TH 06/17/2018 MAIK, ANGELA [employer] SUPERVISOR Ot F12.10 CANNABIS ABUSE, UNCOMPLICATED 06/17/2018 MAIK, ANGELA [employer] SUPERVISOR Ot F17.210 NICOTINE DEPENDENCE, CIGARETTES, UNCOMPL 06/17/2018 MAIK, ANGELA [employer] SUPERVISOR Ot I10 ESSENTIAL (PRIMARY) HYPERTENSION 06/17/2018 MAIK, ANGELA [employer] SUPERVISOR Ot I73.9 PERIPHERAL VASCULAR DISEASE, UNSPECIFIED 06/17/2018 MAIK, ANGELA [employer] SUPERVISOR Ot M19.041 PRIMARY OSTEOARTHRITIS, RIGHT HAND 06/17/2018 MAIK, ANGELA [employer] SUPERVISOR Ot M19.042 PRIMARY OSTEOARTHRITIS, LEFT HAND 06/17/2018 MAIK, ANGELA [employer] SUPERVISOR Ot M19.071 PRIMARY OSTEOARTHRITIS, RIGHT ANKLE AND 06/17/2018 MAIK, ANGELA [employer] SUPERVISOR Ot M19.072 PRIMARY OSTEOARTHRITIS, LEFT ANKLE AND F 06/17/2018 MAIK, ANGELA [employer] SUPERVISOR Ot M79.641 PAIN IN RIGHT HAND 06/17/2018 MAIK, ANGELA [employer] SUPERVISOR Ot Z79.52 LONGTERM (CURRENT) USE OF SYSTEMIC STER 06/17/2018 MAIK, ANGELA [employer] SUPERVISOR Ot Z87.19 PERSONAL HISTORY OF OTHER DISEASES OF TH 06/17/2018 MAIK, ANGELA [employer] SUPERVISOR Ot F12.10 CANNABIS ABUSE, UNCOMPLICATED 06/17/2018 MAIK, ANGELA [employer] SUPERVISOR Ot F17.210 NICOTINE DEPENDENCE, CIGARETTES, UNCOMPL 06/17/2018 MAIK, ANGELA [employer] SUPERVISOR Ot I10 ESSENTIAL (PRIMARY) HYPERTENSION 06/17/2018 MAIK, ANGELA [employer] SUPERVISOR Ot I73.9 PERIPHERAL VASCULAR DISEASE, UNSPECIFIED 06/17/2018 MAIK, ANGELA [employer] SUPERVISOR Ot M19.041 PRIMARY OSTEOARTHRITIS, RIGHT HAND 06/17/2018 MAIK, ANGELA [employer] SUPERVISOR Ot M19.042 PRIMARY OSTEOARTHRITIS, LEFT HAND 06/17/2018 MAIK, ANGELA [employer] SUPERVISOR Ot M19.071 PRIMARY OSTEOARTHRITIS, RIGHT ANKLE AND 06/17/2018 MAIK, ANGELA [employer] SUPERVISOR Ot M19.072 PRIMARY OSTEOARTHRITIS, LEFT ANKLE AND F 06/17/2018 MAIK, ANGELA [employer] SUPERVISOR Ot M79.641 PAIN IN RIGHT HAND 06/17/2018 MAIK, ANGELA [employer] SUPERVISOR Ot Z79.52 LONGTERM (CURRENT) USE OF SYSTEMIC STER 06/17/2018 MAIK, ANGELA [employer] SUPERVISOR Ot Z87.19 PERSONAL HISTORY OF OTHER DISEASES OF 08/31/2018 BERNOT, ASHER Ot I10 ESSENTIAL (PRIMARY) HYPERTENSION 08/31/2018 BERNOT, SAHER Ot M19.90 UNSPECIFIED OSTEOARTHRITIS, UNSPECIFIED 08/31/2018 BERNOT, ASHER Ot Z79.52 LONGTERM (CURRENT) USE OF SYSTEMIC STER 08/31/2018 BERNOT, ASHER Ot Z87.09 PERSONAL HISTORY OF OTHER DISEASES OF 08/31/2018 BERNOT, ASHER Ot Z87.19 PERSONAL HISTORY OF OTHER DISEASES OF 09/02/2018 BERNOT, ASHER Ot I10 ESSENTIAL (PRIMARY) HYPERTENSION 09/02/2018 BERNOT, ASHER Ot M19.90 UNSPECIFIED OSTEOARTHRITIS, UNSPECIFIED 09/02/2018 BERNOT, ASHER Ot Z79.52 LONGTERM (CURRENT) USE OF SYSTEMIC STER 09/02/2018 BERNOT, ASHER Ot Z87.09 PERSONAL HISTORY OF OTHER DISEASES OF 09/02/2018 BERNOT, ASHER Ot Z87.19 PERSONAL HISTORY OF OTHER DISEASES OF 10/22/2018 MARTI MORELOS, EDEN Yarbrough Ot E87.70 FLUID OVERLOAD, UNSPECIFIED 10/22/2018 EDEN KIDD MD Ot F10.20 ALCOHOL DEPENDENCE, UNCOMPLICATED 10/22/2018 EDEN KIDD MD Ot K76.9 LIVER DISEASE, UNSPECIFIED 10/22/2018 MRATI MORELOS, EDEN Yarbrough Ot M06.9 RHEUMATOID ARTHRITIS, UNSPECIFIED Procedures There is no data. Results Test [...] IU/L 0-40 ALT (SGPT) 33 IU/L 0-44 DIFFERENTIAL, MANUAL - 02/17/18 13:43 ABSOLUTE NEUTROPHILS 2067 cells/uL 8357-7510 ABSOLUTE MONOCYTES 551 cells/uL 200-950 ABSOLUTE EOSINOPHILS [...] plasma ethanol measurement (mass/volume) < mg/dL <10 CMP - 10/13/18 12:29 GLUCOSE 84 mg/dL 65-99 UREA NITROGEN (BUN) 7 mg/dL 7-25 CREATININE 0.73 mg/dL 0.70-1.33 eGFR NON-AFR. ECUADOREAN 102 mL/min/1.73m2 > OR=60 eGFR 119 mL/min/1.73m2 > OR=60 BUN/CREATININE RATIO NOT APPLICABLE (calc) 6-22 SODIUM 133 mmol/L 135-146 POTASSIUM 4.5 mmol/L 3.5-5.3 CHLORIDE 96 mmol/L 98-110 CARBON DIOXIDE 28 mmol/L 20-32 CALCIUM 9.6 mg/dL 8.6-10.3 PROTEIN, TOTAL 7.0 g/dL 6.1-8.1 ALBUMIN 3.6 g/dL 3.6-5.1 GLOBULIN 3.4 g/dL (calc) 1.9-3.7 ALBUMIN/GLOBULIN RATIO 1.1 (calc) 1.0-2.5 BILIRUBIN, TOTAL 0.4 mg/dL 0.2-1.2 ALKALINE PHOSPHATASE 69 U/L 40-115 AST 24 U/L 10-35 ALT 17 U/L 9-46 CBC w/MANUAL DIFF - 10/13/18 12:29 WHITE BLOOD CELL COUNT 6.1 Thousand/uL 3.8-10.8 RED BLOOD CELL COUNT 4.70 Million/uL 4.20-5.80 HEMOGLOBIN 14.0 g/dL 13.2-17.1 HEMATOCRIT 41.3 % 38.5-50.0 MCV 87.9 fL 80.0-100.0 MCH 29.8 pg 27.0-33.0 MCHC 33.9 g/dL 32.0-36.0 RDW 13.7 % 11.0-15.0 PLATELET COUNT 278 Thousand/uL 140-400 MPV 9.9 fL 7.5-12.5 COMMENT(S) NRG ESR/SED RATE - 10/13/18 12:29 SED RATE BY MODIFIED WESTERGREN 67 mm/h < OR=20 CRP - 10/13/18 12:29 C-REACTIVE PROTEIN 19.4 mg/L <8.0 DIFFERENTIAL, MANUAL - 10/13/18 12:29 ABSOLUTE NEUTROPHILS 3684 cells/uL 6370-8285 ABSOLUTE MONOCYTES 763 cells/uL 200-950 ABSOLUTE EOSINOPHILS 0 cells/uL 15-500 ABSOLUTE BASOPHILS 0 cells/uL 0-200 NEUTROPHILS 60.4 % NRG LYMPHOCYTES 27.1 % NRG MONOCYTES 12.5 % NRG EOSINOPHILS 0 % NRG BASOPHILS 0 % NRG ABSOLUTE LYMPHOCYTES 1653 cells/uL 850-3900 PLATELET ESTIMATION ADEQUATE ADEQUATE BNP - 10/13/18 12:31 B TYPE NATRIURETIC PEPTIDE (BNP) 122 pg/mL <100 Complete blood count (CBC) with automated white blood cell (WBC) differential - 10/21/18 12:45 Blood leukocytes automated count (number/volume) 6.3 10*3/uL 4.3-11.0 Blood erythrocytes automated count (number/volume) 4.40 10*6/uL 4.35-5.85 Venous blood hemoglobin measurement (mass/volume) 12.9 g/dL 13.3-17.7 Blood hematocrit (volume fraction) 39 % 40-54 Automated erythrocyte mean corpuscular volume 89 [foz_us] 80-99 Automated erythrocyte mean corpuscular hemoglobin (mass per erythrocyte) 29 pg 25-34 Automated erythrocyte mean corpuscular hemoglobin concentration measurement ( mass/volume) 33 g/dL 32-36 Automated erythrocyte distribution width ratio 15.2 % 10.0-14.5 Automated blood platelet count (count/volume) 271 10*3/uL 130-400 Automated blood platelet mean volume measurement 9.5 [foz_us] 7.4-10.4 Automated blood neutrophils/100 leukocytes 69 % 42-75 Automated blood lymphocytes/100 leukocytes 20 % 12-44 Blood monocytes/100 leukocytes 10 % 0-12 Automated blood eosinophils/100 leukocytes 1 % 0-10 Automated blood basophils/100 leukocytes 0 % 0-10 Blood neutrophils automated count (number/volume) 4.3 10*3 1.8-7.8 Blood lymphocytes automated count (number/volume) 1.2 10*3 1.0-4.0 Blood monocytes automated count (number/volume) 0.6 10*3 0.0-1.0 Automated eosinophil count 0.1 10*3/uL 0.0-0.3 Automated blood basophil count (count/volume) 0.0 10*3/uL 0.0-0.1 Comprehensive metabolic panel - 10/21/18 12:45 Serum or plasma sodium measurement (moles/volume) 134 mmol/L 135-145 Serum or plasma potassium measurement (moles/volume) 4.5 mmol/L 3.6-5.0 Serum or plasma chloride measurement (moles/volume) 101 mmol/L 98-107 Carbon dioxide 21 mmol/L 21-32 Serum or plasma anion gap determination (moles/volume) 12 mmol/L 5-14 Serum or plasma urea nitrogen measurement (mass/volume) 8 mg/dL 7-18 Serum or plasma creatinine measurement (mass/volume) 0.72 mg/dL 0.60-1.30 Serum or plasma urea nitrogen/creatinine mass ratio 11 NRG Serum or plasma creatinine measurement with calculation of estimated glomerular filtration rate > NRG Serum or plasma glucose measurement (mass/volume) 93 mg/dL 70-105 Serum or plasma calcium measurement (mass/volume) 9.8 mg/dL 8.5-10.1 Serum or plasma total bilirubin measurement (mass/volume) 0.4 mg/dL 0.1-1.0 Serum or plasma alkaline phosphatase measurement (enzymatic activity/volume) 72 U/L 40-136 Serum or plasma aspartate aminotransferase measurement (enzymatic activity/ volume) 48 U/L 5-34 Serum or plasma alanine aminotransferase measurement (enzymatic activity/volume ) 31 U/L 0-55 Serum or plasma protein measurement (mass/volume) 7.4 g/dL 6.4-8.2 Serum or plasma albumin measurement (mass/volume) 3.5 g/dL 3.2-4.5 CALCIUM CORRECTED 10.2 mg/dL 8.5-10.1 Serum or plasma ethanol measurement (mass/volume) - 10/21/18 12:45 Serum or plasma ethanol measurement (mass/volume) 45 mg/dL <10 Serum or plasma lithium measurement (moles/volume) - 10/21/18 12:45 BNP level 98.0 pg/mL <100.0 Automated blood complete blood count (hemogram) panel - 10/22/18 05:20 Blood leukocytes automated count (number/volume) 8.3 10*3/uL 4.3-11.0 Blood erythrocytes automated count (number/volume) 4.23 10*6/uL 4.35-5.85 Venous blood hemoglobin measurement (mass/volume) 12.3 g/dL 13.3-17.7 Blood hematocrit (volume fraction) 38 % 40-54 Automated erythrocyte mean corpuscular volume 89 [foz_us] 80-99 Automated erythrocyte mean corpuscular hemoglobin (mass per erythrocyte) 29 pg 25-34 Automated erythrocyte mean corpuscular hemoglobin concentration measurement ( mass/volume) 33 g/dL 32-36 Automated erythrocyte distribution width ratio 15.2 % 10.0-14.5 Automated blood platelet count (count/volume) 258 10*3/uL 130-400 Automated blood platelet mean volume measurement 9.7 [foz_us] 7.4-10.4 Comprehensive metabolic panel - 10/22/18 05:20 Serum or plasma sodium measurement (moles/volume) 135 mmol/L 135-145 Serum or plasma potassium measurement (moles/volume) 3.9 mmol/L 3.6-5.0 Serum or plasma chloride measurement (moles/volume) 102 mmol/L 98-107 Carbon dioxide 26 mmol/L 21-32 Serum or plasma anion gap determination (moles/volume) 7 mmol/L 5-14 Serum or plasma urea nitrogen measurement (mass/volume) 13 mg/dL 7-18 Serum or plasma creatinine measurement (mass/volume) 0.72 mg/dL 0.60-1.30 Serum or plasma urea nitrogen/creatinine mass ratio 18 NRG Serum or plasma creatinine measurement with calculation of estimated glomerular filtration rate > NRG Serum or plasma glucose measurement (mass/volume) 94 mg/dL 70-105 Serum or plasma calcium measurement (mass/volume) 9.1 mg/dL 8.5-10.1 Serum or plasma total bilirubin measurement (mass/volume) 0.4 mg/dL 0.1-1.0 Serum or plasma alkaline phosphatase measurement (enzymatic activity/volume) 69 U/L 40-136 Serum or plasma aspartate aminotransferase measurement (enzymatic activity/ volume) 27 U/L 5-34 Serum or plasma alanine aminotransferase measurement (enzymatic activity/volume ) 23 U/L 0-55 Serum or plasma protein measurement (mass/volume) 6.9 g/dL 6.4-8.2 Serum or plasma albumin measurement (mass/volume) 3.2 g/dL 3.2-4.5 CALCIUM CORRECTED 9.7 mg/dL 8.5-10.1 Encounters ACCT No. Visit Date/Time Discharge Status Pt. Type Provider Facility Loc./Unit Complaint [id number] 10/21/2018 09:00:00 10/21/2018 23:59:59 [facility] Outpatient MARTI MORELOS[facility] [id number] 10/13/2018 11:00:00 Document Registration [id number] 02/17/2018 12:40:00 Document Registration [id number] 03/09/2017 17:20:00 Document Registration [id number] 10/21/2018 11:49:00 10/22/2018 11:05:00 DIS Inpatient EDEN KIDD MD [facility] 4TH FLUID OVERLOAD [id number] 08/31/2018 13:42:00 08/31/2018 14:24:00 DIS Emergency ASHER BALLARD [facility] ER GENERAL JOINT PAIN [id number] 06/15/2018 10:18:00 06/15/2018 13:50:00 DIS Emergency ANGELA PLEITEZ [employer] SUPERVISOR [facility] ER HAND AND FEET PAIN [id number] 05/12/2018 10:54:00 05/12/2018 12:56:00 DIS Emergency WILLIAM ALLEN APRN [facility] ER ARTHRITIS [id number] 03/31/2018 09:50:00 03/31/2018 23:59:59 CLS Outpatient KOBE GARZA DO [facility] SDC MASS RIGHT CHEEK [id number] 03/29/2018 05:28:00 03/29/2018 12:41:00 DIS Outpatient KOBE GARZA DO [facility] PREOP MASS RIGHT CHEEK [id number] 02/07/2017 20:35:00 02/07/2017 22:22:00 DIS Emergency WILLIAM ALLEN APRN [facility] ER GENERAL SWELLING [id number] 03/02/2016 19:13:00 03/02/2016 19:24:00 DIS Emergency GABRIELLA FIELDS DO [facility] ER R EYE LAC [id number] 01/12/2015 16:07:00 01/12/2015 17:03:00 DIS Emergency JANELL STINSON [facility] ER RASH [id number] 02/22/2014 12:14:00 02/22/2014 14:20:00 DIS Emergency JANELL STINSON [facility] ER BACK PAIN [id number] 12/03/2011 10:19:00 12/03/2011 23:59:59 CLS Outpatient GABRIELLA MAHAJAN APRN
== END 2018-10-22 11:05 | disposition home or self-care (01) ==
LOC: EDSTATUS 10:49 → UNDOADMIN 11:35 → 4TH 11:35 → UNDODISIN 10-22 14:01
PROVIDERS: ADMIT Pediatrics; ATTEND Pediatrics
DX: E87.70 Fluid overload, unspecified (principal); M06.9 Rheumatoid arthritis, unspecified; F10.20 Alcohol dependence, uncomplicated; K76.9 Liver disease, unspecified; Z79.82 Long term (current) use of aspirin; Z79.899 Other long term (current) drug therapy
CPT/HCPCS: 36415; 71046; 80053; 80320; 83880; 85025; 85027; 99211; G0378

== ENCOUNTER 2019-11-30 10:04 | Inpatient (IN) | payer MEDICAID, OTHER ==
[~2019-11-30] VITALS: Ht 172 cm; Wt 133.7 kg
[~2019-11-30 10:04] MED LIST changes: +ACET-2267 PO; +ACHYD1T PO; +ASPI325T32 PO; +FOLI1TAB24 PO; +FURO20TA4 PO; -HYDR-3816 PO; -HYDR-3820 PO; +MELO15TA39 PO; +OXYC5TAB96 PO; +PRD10T PO
[2019-11-30 10:45] LABS: BASOPHILS % (AUTO) 0 % (0-10); EOSINOPHILS # (AUTO) 0.3 10^3/uL (0.0-0.3); EOSINOPHILS % (AUTO) 7 % (0-10); HEMATOCRIT 32 % (40-54); HEMOGLOBIN 10.8 G/DL (13.3-17.7); LYMPHOCYTES # (AUTO) 1.5 X 10^3 (1.0-4.0); LYMPHOCYTES % (AUTO) 31 % (12-44); MEAN CORPUSCULAR HEMOGLOBIN 31 PG (25-34); MEAN CORPUSCULAR HGB CONC 34 G/DL (32-36); MEAN CORPUSCULAR VOLUME 93 FL (80-99); MEAN PLATELET VOLUME 10.1 FL (7.4-10.4); MONOCYTES # (AUTO) 0.8 X 10^3 (0.0-1.0); MONOCYTES % (AUTO) 17 % (0-12); NEUTROPHILS # (AUTO) 2.1 X 10^3 (1.8-7.8); NEUTROPHILS % (AUTO) 45 % (42-75); PLATELET COUNT 96 10^3/uL (130-400); RED CELL DISTRIBUTION WIDTH 22.6 % (10.0-14.5); WHITE BLOOD COUNT 4.7 10^3/uL (4.3-11.0)
--- NOTE | 2019-11-30 10:46 | ED General ---
General Stated Complaint: EDEMA Source of Information: Patient Exam Limitations: No Limitations History of Present Illness Date Seen by Provider: November 30, 2019 Time Seen by Provider: 10:29 Initial Comments Here with report of increasing shortness of breath over the last few days, 35 pound weight gain in 3 months, increased swelling of the legs and abdomen, feeling poorly and onset of diarrhea early this morning. States diarrhea is nonbloody and persistent. He has been feeling poorly for a few days. He follows with Dr. Eden Howell. He saw her this morning and she wanted him sent here for further evaluation do to concerns of multiple problems including the breathing problems and weight gain. He has known liver dysfunction and edema from that. He also has fairly profound arthritis. Unknown if he has heart failure but that is a consideration. Patient denies fever but has had significant chills. Denies chest pain but has breathing problems. Complains of abdominal fullness but not otherwise significant discomfort. Timing/Duration: 2-3 Days, Changing Over Time, Getting Worse Severity: Moderate, Severe Modifying Factors: worse with Movement; improves with Rest Associated Systoms: No Chest Pain, No Cough; Fever/Chills; No Nausea/Vomiting; Shortness of Air, Weakness Allergies and Home Medications Allergies Coded Allergies: NKANo Known Allergies (Unverified Allergy, Mild, 03/29/18) Home Medications Acetaminophen 500 Mg Tablet, 1,000 MG PO Q4H PRN for PAIN-MILD, (Reported) Aspirin 325 Mg Tablet.dr, 325-650 MG PO BID PRN for PAIN-MILD, (Reported) Folic Acid 1 Mg Tablet, 1 MG PO SuMoTuWeFrSa, (Reported) DOES NOT TAKE ON DAYS HE TAKES METHOTREXATE Furosemide 20 Mg Tablet, 20 MG PO DAILY 7 DAY THERAPY FILLED 10-13-18 Prescribed by: RANDALL HERNANDEZ on 10/22/18 1105 Meloxicam 15 Mg Tablet, 15 MG PO DAILY, (Reported) Methotrexate Sodium 2.5 Mg Tablet, 10 MG PO Th, (Reported) TAKES 4 (2.5MG) TABLETS Oxycodone HCl 5 Mg Tablet, 5 MG PO QID PRN for PAIN-SEVERE Prescribed by: RANDALL HERNANDEZ on 10/22/18 1105 Prednisone 10 Mg Tab, 0 PO UD Take 5 tabs(50mg)daily, decrease by 1 tab(10mg) every other day. Prescribed by: RANDALL HERNANDEZ on 10/22/18 5247 Patient Home Medication List Home Medication List Reviewed: Yes Review of Systems Review of Systems Constitutional: see HPI, chills; No diaphoresis, No fever; weakness EENTM: no symptoms reported Respiratory: No cough; dyspnea on exertion, short of breath, wheezing Cardiovascular: No chest pain; edema; No palpitations Gastrointestinal: abdominal pain, diarrhea, loss of appetite, nausea; No vomiting Genitourinary: no symptoms reported Musculoskeletal: No back pain Skin: change in color (venous stasis changes of the legs); No pruritus Psychiatric/Neurological: No Symptoms Reported Hematologic/Lymphatic: No Symptoms Reported Immunological/Allergic: no symptoms reported All Other Systems Reviewed Negative Unless Noted: Yes Past Bxkzlbv-Shzylq-Jhegni Hx Past Med/Social Hx: Reviewed Nursing Past Med/Soc Hx Patient Social History Alcohol Use: Occasionally Uses Alcohol Beverage of Choice: Beer, Vodka Recreational Drug Use: Yes Drug of Choice: THC Smoking Status: Current Everyday Smoker Type Used: Cigarettes Recent Foreign Travel: No Contact w/Someone Who Travel: No Recent Hopitalizations: No Immunizations Up To Date Date of Pneumonia Vaccine: May 04, 2017 Date of Influenza Vaccine: May 04, 2017 Seasonal Allergies Seasonal Allergies: No Past Medical History Surgeries: No Respiratory: Yes (COUGH) Cardiac: Yes Hypertension Neurological: No Reproductive Disorders: No Sexually Transmitted Disease: No HIV/AIDS: No Gastrointestinal: Yes Liver Disease/Jaundice Musculoskeletal: Yes Arthritis, Chronic Back Pain Endocrine: No Loss of Vision: Bilateral Hearing Impairment: Denies Cancer: No Psychosocial: No Integumentary: No Blood Disorders: No Adverse Reaction/Blood Tranf: No (N/A) Family Medical History Reviewed Nursing Family Hx Abdominal aortic aneurysm Alcoholism Arthritis Cardiovascular disease Completed stroke Diabetes mellitus Drug abuse Gastroenteritis Hypertension Myocardial infarction Psychosocial problem Physical Exam-Suspected Sepsis Physical Exam Vital Signs Vital Signs - First Documented 11/30/19 10:15 Temp 36.6 Pulse 84 Resp 34 B/P (MAP) 112/84 (93) Pulse Ox 97 O2 Delivery Room Air Capillary Refill : Height, Weight, BMI Height: 5'8.00" Weight: 260lbs. 0.0oz. 117.938873ow; 39.5 BMI Method:Stated General Appearance: WD/WN, Mild Distress, Obese HEENT: PERRL/EOMI, Pharynx Normal Neck: Non Tender, Supple Respiratory: No Accessory Muscle Use, Crackles (bilateral bases posterior), Wheezing (bilateral anterior upper lung mark) Cardiovascular: Regular Rate, Rhythm, No Murmur Gastrointestinal: Non Tender, Soft, Distended Back: Normal Inspection, No CVA Tenderness, No Vertebral Tenderness Extremity: Normal Range of Motion, Non Tender, Pedal Edema (up to hips bilateral and are tense with fluid) Neurologic/Psychiatric: Alert, Oriented x3 Skin: warm/dry; No diaphoresis; other (venous stasis color changes to the lower extremities bilateral.) Focused Exam Lactate Level 11/30/19 10:30: Lactic Acid Level 1.63 Lactic Acid Level Laboratory Tests Test 11/30/19 10:30 Lactic Acid Level 1.63 MMOL/L (0.50-2.00) Progress/Results/Core Measures Suspected Sepsis SIRS Temperature: Pulse: Respiratory Rate: Laboratory Tests 11/30/19 10:30: White Blood Count 4.7 Blood Pressure / Mean: 11/30/19 10:30: Lactic Acid Level 1.63 Laboratory Tests 11/30/19 10:30: Creatinine 0.73, INR Comment 1.5H, Platelet Count 96L, Total Bilirubin 2.2H Results/Orders Lab Results Laboratory Tests Test 11/30/19 10:30 11/30/19 12:47 Range/Units White Blood Count 4.7 4.3-11.0 10^3/uL Red Blood Count 3.45 L 4.35-5.85 10^6/uL Hemoglobin 10.8 L 13.3-17.7 G/DL Hematocrit 32 L 40-54 % Mean Corpuscular Volume 93 80-99 FL Mean Corpuscular Hemoglobin 31 25-34 PG Mean Corpuscular Hemoglobin Concent 34 32-36 G/DL Red Cell Distribution Width 22.6 H 10.0-14.5 % Platelet Count 96 L 130-400 10^3/uL Mean Platelet Volume 10.1 7.4-10.4 FL Neutrophils (%) (Auto) 45 42-75 % Lymphocytes (%) (Auto) 31 12-44 % Monocytes (%) (Auto) 17 H 0-12 % Eosinophils (%) (Auto) 7 0-10 % Basophils (%) (Auto) 0 0-10 % Neutrophils # (Auto) 2.1 1.8-7.8 X 10^3 Lymphocytes # (Auto) 1.5 1.0-4.0 X 10^3 Monocytes # (Auto) 0.8 0.0-1.0 X 10^3 Eosinophils # (Auto) 0.3 0.0-0.3 10^3/uL Basophils # (Auto) 0.0 0.0-0.1 10^3/uL Prothrombin Time 18.4 H 12.2-14.7 SEC INR Comment 1.5 H 0.8-1.4 Activated Partial Thromboplast Time 38 H 24-35 SEC Sodium Level 131 L 135-145 MMOL/L Potassium Level 3.2 L 3.6-5.0 MMOL/L Chloride Level 96 L 98-107 MMOL/L Carbon Dioxide Level 28 21-32 MMOL/L Anion Gap 7 5-14 MMOL/L Blood Urea Nitrogen 5 L 7-18 MG/DL Creatinine 0.73 0.60-1.30 MG/DL Estimat Glomerular Filtration Rate > 60 BUN/Creatinine Ratio 7 Glucose Level 94 70-105 MG/DL Lactic Acid Level 1.63 0.50-2.00 MMOL/L Calcium Level 7.6 L 8.5-10.1 MG/DL Corrected Calcium 9.1 8.5-10.1 MG/DL Magnesium Level 1.9 1.6-2.4 MG/DL Total Bilirubin 2.2 H 0.1-1.0 MG/DL Aspartate Amino Transf (AST/SGOT) 132 H 5-34 U/L Alanine Aminotransferase (ALT/SGPT) 24 0-55 U/L Alkaline Phosphatase 178 H 40-136 U/L Ammonia 78 H 11-32 UMOL/L Troponin I 0.042 H <0.028 NG/ML C-Reactive Protein High Sensitivity 4.70 H 0.00-0.50 MG/DL B-Type Natriuretic Peptide 162.8 H <100.0 PG/ML Total Protein 8.2 6.4-8.2 GM/DL Albumin 2.1 L 3.2-4.5 GM/DL Free Thyroxine 0.87 0.70-1.48 NG/DL TSH [place] Testing 6.45 H 0.35-4.94 UIU/ML Urine Color YELLOW Urine Clarity CLEAR Urine pH 7.0 5-9 Urine Specific [place] 1.010 L 1.016-1.022 Urine Protein NEGATIVE NEGATIVE Urine Glucose (UA) NEGATIVE NEGATIVE Urine Ketones NEGATIVE NEGATIVE Urine Nitrite NEGATIVE NEGATIVE Urine Bilirubin NEGATIVE NEGATIVE Urine Urobilinogen 4.0 < = 1.0 MG/DL Urine Leukocyte Esterase NEGATIVE NEGATIVE Urine RBC (Auto) NEGATIVE NEGATIVE Urine RBC 0-2 /HPF Urine WBC NONE /HPF Urine Squamous Epithelial Cells 0-2 /HPF Urine Crystals NONE /LPF Urine Bacteria TRACE /HPF Urine Casts NONE /LPF Urine Mucus NEGATIVE /LPF Urine Culture Indicated CULTURE PENDING My Orders Orders - RAIN WOLFF MD Cbc With Automated Diff (11/30/19 10:37) Comprehensive Metabolic Panel (11/30/19 10:37) Blood Culture (11/30/19 10:37) Sputum Culture (11/30/19 10:37) Urinalysis (11/30/19 10:37) Urine Culture (11/30/19 10:37) Protime With Inr (11/30/19 10:37) Partial Thromboplastin Time (11/30/19 10:37) Chest 1 View, Ap/Pa Only (11/30/19 10:37) Ed Iv/Invasive Line Start (11/30/19 10:37) Ed Iv/Invasive Line Start (11/30/19 10:37) Ekg Tracing (11/30/19 10:37) Troponin I (11/30/19 10:37) Vital Signs Adult Sepsis Patie Q15M (11/30/19 10:37) O2 (11/30/19 10:37) Remove Rings In Anticipation O (11/30/19 10:37) Lactic Acid Analyzer (11/30/19 10:37) Ammonia (11/30/19 10:37) BNP (11/30/19 10:37) Hs C Reactive Protein (11/30/19 10:37) Magnesium (11/30/19 10:37) Thyroid Analyzer (11/30/19 10:37) Fentanyl Injection (Sublimaze Injection (11/30/19 11:14) Free T4 (Free Thyroxine) (11/30/19 10:30) Furosemide Injection (Lasix Injection) (11/30/19 12:22) Fentanyl Injection (Sublimaze Injection (11/30/19 13:51) Oxycodone Immediate Rel Tablet (Oxyir Ta (11/30/19 14:15) Potassium Chloride (Tablet) (Klor Con Ta (11/30/19 14:15) Medications Given in ED Current Medications Medications Dose Ordered Sig/[place] Route Start Time Stop Time Status Last Admin Dose Admin Fentanyl Citrate 100 mcg STK-MED ONCE .ROUTE 11/30/19 11:14 11/30/19 11:22 DC 11/30/19 11:29 100 MCG Vital Signs/I&O 11/30/19 10:15 Temp 36.6 Pulse 84 Resp 34 B/P (MAP) 112/84 (93) Pulse Ox 97 O2 Delivery Room Air Capillary Refill : Progress Note : Progress Note Seen and evaluated. IV, labs, UA, chest x-ray, EKG, blood cultures, lactic acid and ammonia level ordered. Concerns about volume overload as well as underlying infectious etiology. Monitor patient. Lasix 40 mg IV given. 1551: I did discuss the case with Dr. Sol. She accepts patient for admission, inpatient status. Request cardiology consult. Patient did receive until 75 g IV for continuing pain. We have transitioned him to recliner to help as well. To be admitted inpatient status. 1408: I did discuss the case with Dr. Carbone. He accepts patient in consult and agrees with Lasix 40 mg twice a day as well as 2-D echo of the heart in the morning. All findings and concerns were discussed with the patient who agrees with the plan. ECG Initial ECG Impression Date: November 30, 2019 Initial ECG Impression Time: 10:36 Initial ECG Rate: 72 Initial ECG Rhythm: Normal Sinus Comment Sinus rhythm with left atrial abnormality. Normal axis. No evidence of ST elevation NE. Interpreted by me. Similar to previous of 02/07/17. Diagnostic Imaging Diagonstic Imaging: Xray Plain Films/CT/US/NM/MRI: chest Comments [facility] [place], [place] NAME: ERYN WOMACK MED REC#: [id number] PT STATUS: REG ER : 1960 PHYSICIAN: RAIN WOLFF MD ADMIT DATE: 11/30/19/ER Draft Date of Exam:11/30/19 CHEST 1 VIEW, AP/PA ONLY INDICATION: Dyspnea and weight gain. EXAMINATION: Single frontal view of the chest is obtained. COMPARISON: Comparison is made to study of 10/21/2018. FINDINGS: There is mild cardiomegaly and there has been development of pulmonary venous congestion. Mild increased density in the central regions of the lungs may represent early pulmonary edema. No pneumothorax or lobar consolidation is identified. There is no evidence of significant pleural fluid. Advanced degenerative findings are present in the acromioclavicular joints. IMPRESSION: Findings are suggestive of congestive heart failure with pulmonary venous congestion and possible mild central pulmonary edema. 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 Referrals: EDEN [place] MD (PCP/Family) Primary Care Physician RAIN WOLFF MD November 30, 2019 10:46
[2019-11-30 10:54] LABS: ALBUMIN 2.1 GM/DL (3.2-4.5); INR 1.5 (0.8-1.4); PROTHROMBIN TIME PATIENT 18.4 SEC (12.2-14.7)
[2019-11-30 10:55] LABS: CHLORIDE 96 MMOL/L (98-107); POTASSIUM 3.2 MMOL/L (3.6-5.0); SODIUM 131 MMOL/L (135-145)
[2019-11-30 10:56] LABS: AMMONIA 78 UMOL/L (11-32); CALCIUM 7.6 MG/DL (8.5-10.1)
[2019-11-30 10:57] LABS: GLUCOSE 94 MG/DL (70-105); TOTAL PROTEIN 8.2 GM/DL (6.4-8.2)
[2019-11-30 10:58] LABS: CARBON DIOXIDE 28 MMOL/L (21-32)
[2019-11-30 10:59] LABS: BILIRUBIN,TOTAL 2.2 MG/DL (0.1-1.0)
[2019-11-30 11:00] LABS: ALKALINE PHOSPHATASE 178 U/L (40-136)
[2019-11-30 11:01] LABS: CREATININE SERUM 0.73 MG/DL (0.60-1.30); GFR ESTIMATED > 60
[2019-11-30 11:02] LABS: BUN/CREATININE RATIO 7
[2019-11-30 11:04] LABS: ALANINE AMINOTRANSFERASE 24 U/L (0-55); MAGNESIUM 1.9 MG/DL (1.6-2.4)
--- NOTE | 2019-11-30 11:06 | Diagnostic Imaging Report ---
INDICATION: Dyspnea and weight gain. EXAMINATION: Single frontal view of the chest is obtained. COMPARISON: Comparison is made to study of 10/21/2018. FINDINGS: There is mild cardiomegaly and there has been development of pulmonary venous congestion. Mild increased density in the central regions of the lungs may represent early pulmonary edema. No pneumothorax or lobar consolidation is identified. There is no evidence of significant pleural fluid. Advanced degenerative findings are present in the acromioclavicular joints. IMPRESSION: Findings are suggestive of congestive heart failure with pulmonary venous congestion and possible mild central pulmonary edema. Dictated by: Dictated on workstation # [id number]
[2019-11-30] MEDS ORDERED: fentaNYL INJECTION 100 MCG/2 ML AMP ONE (11:14)
[2019-11-30 11:24] LABS: TSH (THYROID ANALYZER) 6.45 UIU/ML (0.35-4.94)
[2019-11-30 12:06] LABS: FREE T4 (FREE THYROXINE) 0.87 NG/DL (0.70-1.48)
[2019-11-30] MEDS ORDERED: FUROSEMIDE 40 MG/4 ML INJ (LASIX) IV STA (12:22)
[2019-11-30 12:52] LABS: BILIRUBIN,URINE NEGATIVE (NEGATIVE); CLARITY,URINE CLEAR; COLOR,URINE YELLOW; GLUCOSE, URINE (UA) NEGATIVE (NEGATIVE); KETONES,URINE NEGATIVE (NEGATIVE); LEUKOCYTE ESTERASE ,URINE NEGATIVE (NEGATIVE); NITRITE,URINE NEGATIVE (NEGATIVE); PROTEIN,URINE NEGATIVE (NEGATIVE)
[2019-11-30 13:06] LABS: BACTERIA,URINE TRACE /HPF; RBC,URINE 0-2 /HPF; SQUAMOUS EPITHELIAL CELL,UR 0-2 /HPF
[2019-11-30] MEDS ORDERED: fentaNYL INJECTION 100 MCG/2 ML AMP IVP STA (13:51)
[2019-11-30] MEDS ORDERED: KCL 10 MEQ TAB (MICRO K) PO ONE (14:15)
--- NOTE | 2019-11-30 15:00 | NUR ---
ERYN WOMACK admitted to room 409-1, with an admitting diagnosis of heart failure, on 11/30/19 from ED via wheel chair, accompanied by staff .ERYN WOMACK introduced to surroundings, call light, bed controls, phone, TV, temperature control, lights, meal times, smoking policy, visitor policy, side rail policy, bathrooms and showers. Patient Rights given to patient in the handbook. ERYN WOMACK verbalizes understanding that [facility] is not responsible for the loss or damage to any personal effects or valuables that are kept in the patients posession during their hospitalization. The following Patient Care Plans and discharge were discussed with the patient. ERYN WOMACK verbalizes understanding of Interdisciplinary Patient Education. Patient was informed about the Rapid Response Team and its purpose.
[2019-11-30] MEDS ORDERED: CATHETER FLUSH 10 ML SYR IV PRN (15:30)
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
[2019-11-30] MEDS ORDERED: POTA-51 PO (16:30)
[2019-11-30] MEDS ORDERED: FURO40TA4 PO (16:30)
[2019-11-30] MEDS ORDERED: OXYC5TAB96 PO (16:30)
--- NOTE | 2019-11-30 16:47 | NUR ---
SPOKE WITH THE PT, WENT THRU THE EXT MED HISTORY AND CALLED [facility] TO COMPLETE THE MED REC 11-01-2019 OXYCODONE 5MG #112/28DS - THIS IS NOT LISTED ON THE EXT MED HISTORY ALL OTHER MEDICATIONS ARE ON THE EXT MED HISTORY PT DENIES TAKING ANY OTC MEDS
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
[2019-11-30 17:36] VITALS: BP 129/80
[2019-11-30 17:49] VITALS: BP 132/76
[2019-11-30 20:00] VITALS: BP 142/83
[2019-11-30] MEDS ORDERED: FUROSEMIDE 40 MG/4 ML INJ (LASIX) ONE (20:04)
[2019-11-30] MEDS: FUROSEMIDE 40 MG/4 ML INJ (LASIX) IV SCH (20:15)
[2019-11-30] MEDS: CATHETER FLUSH 10 ML SYR IV SCH (20:15)
[2019-12-01 00:28] VITALS: BP 119/74
[2019-12-01 04:00] VITALS: BP 127/81
[2019-12-01 06:18] LABS: BASOPHILS % (AUTO) 1 % (0-10); EOSINOPHILS # (AUTO) 0.3 10^3/uL (0.0-0.3); EOSINOPHILS % (AUTO) 6 % (0-10); HEMATOCRIT 30 % (40-54); HEMOGLOBIN 10.1 G/DL (13.3-17.7); LYMPHOCYTES # (AUTO) 1.5 X 10^3 (1.0-4.0); LYMPHOCYTES % (AUTO) 36 % (12-44); MEAN CORPUSCULAR HEMOGLOBIN 32 PG (25-34); MEAN CORPUSCULAR HGB CONC 34 G/DL (32-36); MEAN CORPUSCULAR VOLUME 95 FL (80-99); MEAN PLATELET VOLUME 9.9 FL (7.4-10.4); MONOCYTES # (AUTO) 0.6 X 10^3 (0.0-1.0); MONOCYTES % (AUTO) 16 % (0-12); NEUTROPHILS # (AUTO) 1.7 X 10^3 (1.8-7.8); NEUTROPHILS % (AUTO) 42 % (42-75); PLATELET COUNT 87 10^3/uL (130-400); RED CELL DISTRIBUTION WIDTH 23.2 % (10.0-14.5); WHITE BLOOD COUNT 4.1 10^3/uL (4.3-11.0)
[2019-12-01] MEDS: FUROSEMIDE 40 MG/4 ML INJ (LASIX) IV SCH ×2 (06:44→16:47)
[2019-12-01] MEDS: CATHETER FLUSH 10 ML SYR IV SCH ×3 (06:44→21:18)
[2019-12-01] MEDS: KCL 20 MEQ TAB (K-DUR) PO SCH (06:45)
[2019-12-01 06:50] LABS: ALANINE AMINOTRANSFERASE 22 U/L (0-55); ALBUMIN 1.9 GM/DL (3.2-4.5); ALKALINE PHOSPHATASE 166 U/L (40-136); BILIRUBIN,TOTAL 1.7 MG/DL (0.1-1.0); BUN/CREATININE RATIO 5; CALCIUM 7.4 MG/DL (8.5-10.1); CARBON DIOXIDE 26 MMOL/L (21-32); CHLORIDE 100 MMOL/L (98-107); CHOLESTEROL 96 MG/DL (< 200); CREATININE SERUM 0.73 MG/DL (0.60-1.30); GFR ESTIMATED > 60; GLUCOSE 100 MG/DL (70-105); HDL CHOLESTEROL < 15 MG/DL (40-60); MAGNESIUM 1.7 MG/DL (1.6-2.4); POTASSIUM 3.3 MMOL/L (3.6-5.0); SODIUM 135 MMOL/L (135-145); TOTAL PROTEIN 7.4 GM/DL (6.4-8.2); TRIGLYCERIDES 99 MG/DL (<150); VLDL CHOLESTEROL 20 MG/DL (5-40)
[2019-12-01 08:00] VITALS: BP 111/73
[2019-12-01] MEDS ORDERED: KCL 20 MEQ TAB (K-DUR) PO ONE ×3 (09:00→21:45)
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
[2019-12-01 12:00] VITALS: BP 116/68
[2019-12-01] MEDS: ASPIRIN 81 MG CHEW (CHILDREN'S ASA) PO SCH (13:17)
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
[2019-12-01 15:45] VITALS: BP 107/56
--- NOTE | 2019-12-01 16:15 | NUR ---
Pastoral care visit.
--- NOTE | 2019-12-01 17:53 | History & Physical ---
HPI History of Present Illness: 59 yo M that states that he came to ER after increasing shortness of breath over the last 3 days but it had been going on for 1 month. Denies any diet changes. He is a beer drinker and has been cutting down. Drinks about a 6 pack daily. Last drink was the night prior to presenting. Denies any previous admission for alcohol withdraw and states that he can go a week without drinking and does not get any symptoms. Denies any chest pain. States that he is limited to what he can do because of his breathing. He can walk around his house but has to take rests when he gets out. Source: patient Exam Limitations: no limitations Date seen by provider: December 01, 2019 Time Seen by Provider: 10:00 Attending Physician Kelli Sol MD PCP Eden Howell MD Consult Date of Admission November 30, 2019 at 14:08 Home Medications Home Medications Reviewed patient Home Medication Reconciliation performed by pharmacy medication reconciliations pipe testing technician and/or nursing. Patients Allergies have been reviewed. Allergies Coded Allergies: NKANo Known Allergies (Unverified Allergy, Mild, 03/29/18) SUX-[id number]-Qigbue Hx Patient Social History Alcohol Use: Occasionally Uses Recreational Drug Use: Yes Drug of Choice: THC Smoking Status: Current Everyday Smoker Type Used: Cigars Recent Foreign Travel: No Contact w/other who traveled: No Recent Hopitalizations: No Recent Infectious Disease Expo: No Physical Abuse Screen: No Sexual Abuse: No Immunizations Up To Date Date of Pneumonia Vaccine: May 04, 2017 Date of Influenza Vaccine: May 04, 2017 Past Medical History EtOHism COPD Chronic Pain Family Medical History Family History: Abdominal aortic aneurysm Alcoholism Arthritis Cardiovascular disease Completed stroke Diabetes mellitus Drug abuse Gastroenteritis Hypertension Myocardial infarction Psychosocial problem Review of Systems ([facility]) Constitutional: No chills, No fever; malaise, weakness EENTM: no symptoms reported; No mouth pain, No nose congestion, No nose pain Respiratory: No cough; dyspnea on exertion, orthopnea, short of breath Cardiovascular: No chest pain; edema; No palpitations Gastrointestinal: no symptoms reported; No abdominal pain, No constipation, No diarrhea, No loss of appetite, No nausea, No vomiting Genitourinary: No dysuria; frequency; No hematuria Musculoskeletal: back pain, joint pain Skin: no symptoms reported; No lesions, No rash Psychiatric/Neurological: Numbness, Weakness Reviewed Test Results Reviewed Test Results Lab Laboratory Tests Test 5/14/20 05:50 Range/Units White Blood Count 4.1 L 4.3-11.0 10^3/uL Red Blood Count 3.17 L 4.35-5.85 10^6/uL Hemoglobin 10.1 L 13.3-17.7 G/DL Hematocrit 30 L 40-54 % Mean Corpuscular Volume 95 80-99 FL Mean Corpuscular Hemoglobin 32 25-34 PG Mean Corpuscular Hemoglobin Concent 34 32-36 G/DL Red Cell Distribution Width 23.2 H 10.0-14.5 % Platelet Count 87 L 130-400 10^3/uL Mean Platelet Volume 9.9 7.4-10.4 FL Neutrophils (%) (Auto) 42 42-75 % Lymphocytes (%) (Auto) 36 12-44 % Monocytes (%) (Auto) 16 H 0-12 % Eosinophils (%) (Auto) 6 0-10 % Basophils (%) (Auto) 1 0-10 % Neutrophils # (Auto) 1.7 L 1.8-7.8 X 10^3 Lymphocytes # (Auto) 1.5 1.0-4.0 X 10^3 Monocytes # (Auto) 0.6 0.0-1.0 X 10^3 Eosinophils # (Auto) 0.3 0.0-0.3 10^3/uL Basophils # (Auto) 0.0 0.0-0.1 10^3/uL Sodium Level 135 135-145 MMOL/L Potassium Level 3.3 L 3.6-5.0 MMOL/L Chloride Level 100 98-107 MMOL/L Carbon Dioxide Level 26 21-32 MMOL/L Anion Gap 9 5-14 MMOL/L Blood Urea Nitrogen 4 L 7-18 MG/DL Creatinine 0.73 0.60-1.30 MG/DL Estimat Glomerular Filtration Rate > 60 BUN/Creatinine Ratio 5 Glucose Level 100 70-105 MG/DL Calcium Level 7.4 L 8.5-10.1 MG/DL Corrected Calcium 9.1 8.5-10.1 MG/DL Magnesium Level 1.7 1.6-2.4 MG/DL Total Bilirubin 1.7 H 0.1-1.0 MG/DL Aspartate Amino Transf (AST/SGOT) 134 H 5-34 U/L Alanine Aminotransferase (ALT/SGPT) 22 0-55 U/L Alkaline Phosphatase 166 H 40-136 U/L Total Protein 7.4 6.4-8.2 GM/DL Albumin 1.9 L 3.2-4.5 GM/DL Triglycerides Level 99 <150 MG/DL Cholesterol Level 96 < 200 MG/DL LDL Cholesterol Direct 73 1-129 MG/DL VLDL Cholesterol 20 5-40 MG/DL HDL Cholesterol < 15 L 40-60 MG/DL Radiology NAME: ERYN WOMACK [facility] REC#: [id number] PT STATUS: REG ER : 1960 PHYSICIAN: RAIN WOLFF MD ADMIT DATE: 11/30/19/ER Draft Date of Exam:11/30/19 CHEST 1 VIEW, AP/PA ONLY INDICATION: Dyspnea and weight gain. EXAMINATION: Single frontal view of the chest is obtained. COMPARISON: Comparison is made to study of 10/21/2018. FINDINGS: There is mild cardiomegaly and there has been development of pulmonary venous congestion. Mild increased density in the central regions of the lungs may represent early pulmonary edema. No pneumothorax or lobar consolidation is identified. There is no evidence of significant pleural fluid. Advanced degenerative findings are present in the acromioclavicular joints. IMPRESSION: Findings are suggestive of congestive heart failure with pulmonary venous congestion and possible mild central pulmonary edema. Dictated on workstation # [id number] Dict: 11/30/19 1059 Trans: 11/30/19 1105 [facility] [id number] Interpreted by: LEDY ESPINOZA MD Electronically signed by: Physical Exam-([facility]) Physical Exam Vital Signs VS - Last 72 Hours, by Label 11/30/19 11/30/19 11/30/19 11/30/19 10:15 14:42 16:00 16:20 Temp 36.6 Pulse 84 72 84 Resp 34 34 B/P (MAP) 112/84 (93) 129/80 (93) Pulse Ox 97 97 97 O2 Delivery Room Air Room Air 11/30/19 11/30/19 11/30/19 11/30/19 17:36 17:49 19:51 20:00 Temp 36.6 36.4 36.8 Pulse 84 75 76 78 Resp 34 20 22 B/P (MAP) 129/80 132/76 (94) 142/83 (102) Pulse Ox 97 97 94 O2 Delivery Room Air Room Air Room Air 11/30/19 12/01/19 12/01/19 12/01/19 20:15 00:28 01:00 04:00 Temp 36.2 36.4 Pulse 86 98 85 Resp 20 20 B/P (MAP) 119/74 (89) 127/81 (96) Pulse Ox 94 96 95 O2 Delivery Room Air Room Air Room Air 12/01/19 12/01/19 12/01/19 12/01/19 06:40 08:00 08:00 12:00 Temp 36.3 36.8 Pulse 74 83 80 Resp 24 24 B/P (MAP) 111/73 (86) 116/68 (84) Pulse Ox 97 93 O2 Delivery Room Air Room Air Room Air 12/01/19 12/01/19 12:34 15:45 Temp 37.1 Pulse 83 83 Resp 20 B/P (MAP) 107/56 (73) Pulse Ox 94 O2 Delivery Room Air Capillary Refill : Less Than 3 Seconds General Appearance: mild distress (conversational dyspnea), obese HEENT: PERRL/EOMI Neck: non-tender, full range of motion, supple Respiratory: no accessory muscle use, decreased breath sounds, wheezing Cardiovascular: normal peripheral pulses, regular rate, rhythm, no murmur Gastrointestinal: normal bowel sounds, non tender, soft, hepatomegaly Extremities: normal range of motion, non-tender, normal inspection, no calf tenderness, pedal edema (2+ pitting edema equal bilaterally) Neurologic/Psychiatric: lunchroom mother II-XII nml as tested, no motor/sensory deficits, alert, normal mood/affect, oriented x 3 Skin: normal color, warm/dry Lymphatic: no adenopathy Assessment/Plan Assessment/Plan Admission Status: Inpatient Order (span 2 midnights) Reason for Inpatient Admission: Needs cardiac workup and IV medications (1) Acute diastolic (congestive) heart failure Status: Acute Assessment & Plan: - Cardiology consulted, appreciate recommendations. Continue with diuresis, strict I/Os (2) COPD exacerbation Status: Acute Assessment & Plan: - Steroids and wean off oxygen as tolerated (3) Normocytic anemia Status: Acute Assessment & Plan: - Occult stool pending, recommend colonoscopy as outpatient (4) Alcohol dependence Status: Chronic Qualifiers: Qualified Codes: F10.20 - Alcohol dependence, uncomplicated (5) Hypothyroidism Status: Chronic Assessment & Plan: - Will get T4/T3 level Qualifiers: Qualified Codes: E03.9 - Hypothyroidism, unspecified (6) Elevated LFTs Status: Acute Assessment & Plan: - US pending, acute hepatitis panel pending (7) 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
[2019-12-01 19:27] VITALS: BP 119/77
[2019-12-01 22:06] LABS: CHLORIDE 99 MMOL/L (98-107); POTASSIUM 3.7 MMOL/L (3.6-5.0); SODIUM 133 MMOL/L (135-145)
[2019-12-01 22:08] LABS: CALCIUM 7.5 MG/DL (8.5-10.1); GLUCOSE 104 MG/DL (70-105)
[2019-12-01 22:10] LABS: CARBON DIOXIDE 26 MMOL/L (21-32)
[2019-12-01 22:12] LABS: GFR ESTIMATED > 60
[2019-12-01 22:13] LABS: BUN/CREATININE RATIO 5
[2019-12-02] VITALS (8 sets, daily range): BP systolic 133–169; BP diastolic 74–103
[2019-12-02 06:32] LABS: BASOPHILS % (AUTO) 0 % (0-10); EOSINOPHILS # (AUTO) 0.3 10^3/uL (0.0-0.3); EOSINOPHILS % (AUTO) 7 % (0-10); HEMATOCRIT 32 % (40-54); HEMOGLOBIN 10.4 G/DL (13.3-17.7); LYMPHOCYTES # (AUTO) 1.6 X 10^3 (1.0-4.0); LYMPHOCYTES % (AUTO) 39 % (12-44); MEAN CORPUSCULAR HEMOGLOBIN 31 PG (25-34); MEAN CORPUSCULAR HGB CONC 33 G/DL (32-36); MEAN CORPUSCULAR VOLUME 95 FL (80-99); MEAN PLATELET VOLUME 10.1 FL (7.4-10.4); MONOCYTES # (AUTO) 0.7 X 10^3 (0.0-1.0); MONOCYTES % (AUTO) 17 % (0-12); NEUTROPHILS # (AUTO) 1.5 X 10^3 (1.8-7.8); NEUTROPHILS % (AUTO) 37 % (42-75); PLATELET COUNT 95 10^3/uL (130-400); RED CELL DISTRIBUTION WIDTH 23.7 % (10.0-14.5)
[2019-12-02 06:48] LABS: BUN/CREATININE RATIO 6; CALCIUM 7.3 MG/DL (8.5-10.1); CARBON DIOXIDE 24 MMOL/L (21-32); CHLORIDE 101 MMOL/L (98-107); CREATININE SERUM 0.71 MG/DL (0.60-1.30); GFR ESTIMATED > 60; GLUCOSE 98 MG/DL (70-105); MAGNESIUM 1.7 MG/DL (1.6-2.4); POTASSIUM 3.6 MMOL/L (3.6-5.0); SODIUM 134 MMOL/L (135-145)
[2019-12-02] MEDS: FUROSEMIDE 40 MG/4 ML INJ (LASIX) IV SCH ×2 (06:58→16:59)
[2019-12-02] MEDS: KCL 20 MEQ TAB (K-DUR) PO SCH (06:58)
[2019-12-02] MEDS: ASPIRIN 81 MG CHEW (CHILDREN'S ASA) PO SCH (08:39)
[2019-12-02] MEDS: CATHETER FLUSH 10 ML SYR IV SCH ×3 (08:40→19:59)
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
--- NOTE | 2019-12-02 15:48 | Diagnostic Imaging Report ---
PROCEDURE: US Abdomen, limited. TECHNIQUE: Multiple real-time grayscale images were obtained over the abdomen in various projections. INDICATION: Elevated liver function tests. FINDINGS: Liver is upper limits of normal in size at 18 cm. There is increased echogenicity to the liver suggestive of hepatic steatosis. The liver is poorly visualized. Gallbladder is without stones or sludge. No wall thickening or biliary ductal dilatation is identified. The pancreas is obscured. The aorta is obscured. IVC is unremarkable. Right kidney is without calculi or hydronephrosis. There is no ascites. IMPRESSION: 1. Limited study. There is probable hepatic steatosis. No discrete liver mass is detected. Dictated by: Dictated on workstation # [id number]
--- NOTE | 2019-12-02 17:37 | Progress Note ---
Subjective Subjective/Events-last exam Patient feeling better. Swelling improved but still has exercise intolerance. Tolerating PO diet. Review of Systems Pulmonary: Dyspnea; No Cough Cardiovascular: No: Chest Pain, Palpitations Gastrointestinal: No: Abdominal Pain Neurological: Weakness Focused Exam Lactate Level 11/30/19 10:30: Lactic Acid Level 1.63 Objective Exam Last Set of Vital Signs Vital Signs Date Time Temp Pulse Resp B/P (MAP) Pulse Ox O2 Delivery O2 Flow Rate FiO2 12/02/19 17:09 150/78 (102) 83 12/02/19 16:10 37.0 84 20 Room Air Capillary Refill : Less Than 3 Seconds I&O Intake and Output 12/02/19 00:00 Intake Total 3230 ml Output Total 3950 ml Balance -720 ml Intake Oral 3230 ml Output Urine Total 3950 ml General: Alert, Oriented X3, No Acute Distress HEENT: Mucous Memb Moist/[place] Lungs: Clear to Auscultation, Normal Air Movement Heart: Regular Rate, No Murmurs Abdomen: Soft, No Tenderness Extremities: Other (1+ pitting edema bilaterally) Results/Procedures Lab Laboratory Tests 12/01/19 21:55: Sodium Level 133L, Potassium Level 3.7, Chloride Level 99, Carbon Dioxide Level 26, Anion Gap 8, Blood Urea Nitrogen 4L, Creatinine 0.80, Estimat Glomerular Filtration Rate > 60, BUN/Creatinine Ratio 5, Glucose Level 104, Calcium Level 7.5L 12/02/19 05:55: Sodium Level 134L, Potassium Level 3.6, Chloride Level 101, Carbon Dioxide Level 24, Anion Gap 9, Blood Urea Nitrogen 4L, Creatinine 0.71, Estimat Glomerular Filtration Rate > 60, BUN/Creatinine Ratio 6, Glucose Level 98, Calcium Level 7.3L, White Blood Count 4.0L, Red Blood Count 3.33L, Hemoglobin 10.4L, Hematocrit 32L, Mean Corpuscular Volume 95, Mean Corpuscular Hemoglobin 31, Mean Corpuscular Hemoglobin Concent 33, Red Cell Distribution Width 23.7H, Platelet Count 95L, Mean Platelet Volume 10.1, Neutrophils (%) (Auto) 37L, Lymphocytes (%) (Auto) 39, Monocytes (%) (Auto) 17H, Eosinophils (%) (Auto) 7, Basophils (%) (Auto) 0, Neutrophils # (Auto) 1.5L, Lymphocytes # (Auto) 1.6, Monocytes # (Auto) 0.7, Eosinophils # (Auto) 0.3, Basophils # (Auto) 0.0, Magnesium Level 1.7, Iron Level 44, Total Iron Binding Capacity 212L, Unsaturated Iron Binding Capacity 168, Transferrin % Saturation 21 Microbiology 11/30/19 Urine Culture - Final, Complete NO GROWTH 11/30/19 Blood Culture - Preliminary, Resulted No growth Radiology NAME: ERYN WOMACK [facility] REC#: [id number] PT STATUS: REG ER : 1960 PHYSICIAN: RAIN WOLFF MD ADMIT DATE: 11/30/19/ER Draft Date of Exam:11/30/19 CHEST 1 VIEW, AP/PA ONLY INDICATION: Dyspnea and weight gain. EXAMINATION: Single frontal view of the chest is obtained. COMPARISON: Comparison is made to study of 10/21/2018. FINDINGS: There is mild cardiomegaly and there has been development of pulmonary venous congestion. Mild increased density in the central regions of the lungs may represent early pulmonary edema. No pneumothorax or lobar consolidation is identified. There is no evidence of significant pleural fluid. Advanced degenerative findings are present in the acromioclavicular joints. IMPRESSION: Findings are suggestive of congestive heart failure with pulmonary venous congestion and possible mild central pulmonary edema. Dictated on workstation # [id number] Dict: 11/30/19 1059 Trans: 11/30/19 1105 [facility] [id number] Interpreted by: LEDY ESPINOZA MD Electronically signed by: Assessment/Plan Assessment/Plan (1) Acute diastolic (congestive) heart failure Status: Acute Assessment & Plan: - Cardiology consulted, appreciate recommendations. Continue with diuresis, strict I/Os 12/01: Continue with IV lasix tonight and then transition to PO in AM and plan for d/c (2) COPD exacerbation Status: Acute Assessment & Plan: - Steroids and wean off oxygen as tolerated (3) Normocytic anemia Status: Acute Assessment & Plan: - Occult stool pending, recommend colonoscopy as outpatient (4) Alcohol dependence Status: Chronic Qualifiers: Qualified Codes: F10.20 - Alcohol dependence, uncomplicated (5) Hypothyroidism Status: Chronic Assessment & Plan: - Will get T4/T3 level Qualifiers: Qualified Codes: E03.9 - Hypothyroidism, unspecified (6) Elevated LFTs Status: Acute Assessment & Plan: - US pending, acute hepatitis panel pending 12/01: Hepatic Steatosis (7) 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
[2019-12-02 21:28] LABS: HEPATITIS C ANTIBODY C Non-Reactive (Non-Reactive)
[2019-12-03 04:11] VITALS: BP 140/78
[2019-12-03 05:13] LABS: BASOPHILS % (AUTO) 0 % (0-10); EOSINOPHILS # (AUTO) 0.3 10^3/uL (0.0-0.3); EOSINOPHILS % (AUTO) 7 % (0-10); HEMATOCRIT 31 % (40-54); HEMOGLOBIN 10.5 G/DL (13.3-17.7); LYMPHOCYTES # (AUTO) 1.4 X 10^3 (1.0-4.0); LYMPHOCYTES % (AUTO) 34 % (12-44); MEAN CORPUSCULAR HEMOGLOBIN 32 PG (25-34); MEAN CORPUSCULAR HGB CONC 34 G/DL (32-36); MEAN CORPUSCULAR VOLUME 95 FL (80-99); MEAN PLATELET VOLUME 10.1 FL (7.4-10.4); MONOCYTES # (AUTO) 0.6 X 10^3 (0.0-1.0); MONOCYTES % (AUTO) 16 % (0-12); NEUTROPHILS # (AUTO) 1.8 X 10^3 (1.8-7.8); NEUTROPHILS % (AUTO) 44 % (42-75); PLATELET COUNT 96 10^3/uL (130-400); RED CELL DISTRIBUTION WIDTH 23.5 % (10.0-14.5); WHITE BLOOD COUNT 4.1 10^3/uL (4.3-11.0)
[2019-12-03 05:31] LABS: CHLORIDE 102 MMOL/L (98-107); POTASSIUM 3.5 MMOL/L (3.6-5.0); SODIUM 134 MMOL/L (135-145)
[2019-12-03 05:32] LABS: CALCIUM 7.5 MG/DL (8.5-10.1); GLUCOSE 92 MG/DL (70-105)
[2019-12-03 05:34] LABS: CARBON DIOXIDE 24 MMOL/L (21-32)
[2019-12-03 05:36] LABS: GFR ESTIMATED > 60
[2019-12-03 05:37] LABS: BUN/CREATININE RATIO 6
[2019-12-03] MEDS: KCL 20 MEQ TAB (K-DUR) PO SCH (06:28)
[2019-12-03] MEDS: FUROSEMIDE 40 MG/4 ML INJ (LASIX) IV SCH (06:28)
[2019-12-03] MEDS: CATHETER FLUSH 10 ML SYR IV SCH (06:28)
[2019-12-03 08:05] VITALS: BP 128/78
[2019-12-03 08:13] VITALS: BP 111/70
[2019-12-03] MEDS: ASPIRIN 81 MG CHEW (CHILDREN'S ASA) PO SCH (08:23)
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
[2019-12-03 12:00] VITALS: BP 120/69
[2019-12-03] MEDS ORDERED: POTA-51 PO (13:55)
[2019-12-03] MEDS ORDERED: OXYC5TAB96 PO (13:55)
[2019-12-03] MEDS ORDERED: ASPI-999 PO (13:55)
[2019-12-03] MEDS ORDERED: FURO40TA4 PO (13:55)
--- NOTE | 2019-12-03 13:56 | Discharge Summary ---
Discharge Summary Hospital Course Was the Problem List Reviewed?: Yes Hospital Course Date of Admission: November 30, 2019 at 14:08 Admission Diagnosis : Family Physician/Provider: Janae Rojas MD Date of Discharge: 12/03/19 Discharge Diagnosis: AECHF Hospital Course: Patient had a short hospital course after admitted for acute on chronic diastolic CHF placed on IV Lasix and patient was seen by Dr Nina schroeder. Diuresis was successful and patient felt well enough for DC in stable condition with close f/u [facility]. Labs and Pending Lab Test: Laboratory Tests 12/03/19 04:56: White Blood Count 4.1L, Red Blood Count 3.26L, Hemoglobin 10.5L, Hematocrit 31L, Mean Corpuscular Volume 95, Mean Corpuscular Hemoglobin 32, Mean Corpuscular Hemoglobin Concent 34, Red Cell Distribution Width 23.5H, Platelet Count 96L, Mean Platelet Volume 10.1, Neutrophils (%) (Auto) 44, Lymphocytes (%) (Auto) 34, Monocytes (%) (Auto) 16H, Eosinophils (%) (Auto) 7, Basophils (%) (Auto) 0, Neutrophils # (Auto) 1.8, Lymphocytes # (Auto) 1.4, Monocytes # (Auto) 0.6, Eosinophils # (Auto) 0.3, Basophils # (Auto) 0.0, Sodium Level 134L, Potassium Level 3.5L, Chloride Level 102, Carbon Dioxide Level 24, Anion Gap 8, Blood Urea Nitrogen 4L, Creatinine 0.70, Estimat Glomerular Filtration Rate > 60, BUN/Creatinine Ratio 6, Glucose Level 92, Calcium Level 7.5L Microbiology 11/30/19 Urine Culture - Final, Complete NO GROWTH 11/30/19 Blood Culture - Preliminary, Resulted No growth Home Meds Active Aspirin 81 Mg Tab.chew 81 Mg PO DAILY Furosemide 40 Mg Tablet 40 Mg PO DAILY Potassium Chloride 20 Meq Tablet.er 20 Meq PO DAILY Reported Meloxicam 15 Mg Tablet 15 Mg PO DAILY Assessment/Pt Instructions [facility] 1 week Cardiology consultation Discharge Planning: <30 minutes discharge planning Discharge Instructions Discharge Diet: Low Sodium Diet, Cardiac Diet Pneumonia Vaccine Order Indica: Yes Discharge Physical Examination Vital Signs Vital Signs Date Time Temp Pulse Resp B/P (MAP) Pulse Ox O2 Delivery O2 Flow Rate FiO2 12/03/19 12:38 76 12/03/19 08:13 36.5 20 111/70 (84) 100 Room Air General Appearance: No Apparent Distress, WD/WN Respiratory: Chest Non Tender, Lungs Clear, Normal Breath Sounds, No Accessory Muscle Use, No Respiratory Distress, Decreased Breath Sounds Neurologic/Psychiatric: Alert, Oriented x3, No Motor/Sensory Deficits, Normal Mood/Affect Allergies: Coded Allergies: NKANo Known Allergies (Unverified Allergy, Mild, 03/29/18) Discharge Summary Date of Admission November 30, 2019 at 14:08 Date of Discharge Discharge Date: December 03, 2019 Clinical Quality Measures DVT/VTE Risk/Contraindication: Risk Factor Score Per Nursin RFS Level Per Nursing on Admit: 4+=Very High DASHA BURCH DO December 03, 2019 13:56
--- NOTE | 2019-12-03 14:30 | NUR ---
PT AGITATED AND YELLING AT STAFF. SISTER GENNY CALLED AND STATES THIS IS PT NORMAL WHEN HE GETS ANXIOUS AND HE IS ANXIOUS TO GET HOME. HOME BENCH GRINDER HERMINIO CALLED @ [phone]. SHE WILL BE HERE TO CROP GRAIN OR LIVESTOCK FARMER IN 30 MINUTES. MARKETING MGR ELEANOR HERE AND HAS TALKED WITH PT AND HE IS MORE RELAXED.
--- NOTE | 2019-12-03 15:14 | NUR ---
DC'D PER WC TO CAREGIVER AT FRONT ENTRANCE.
--- NOTE | 2019-12-05 18:22 | Physician Query Clarification ---
PQ-CHF Specificity Admission Date: November 30, 2019 at 14:08 Discharge Date: December 03, 2019 at 15:15 The medical record reflects the following clinical scenario: History/Risk Factors: SOB, weight gain, swelling Clinical Findings: Ejection [id number] HTN, BNP 162.8 Treatment: IV Lasix Question: Can you further specify the acuity &/or type of CHF per the clinical indicators above? Conflicting info, Dr Wood and Dr Sol state Acute Diastolic CHF, summary states Acute on Chronic Diastolic CHF. Please document a response in the Progress Notes or Discharge Summary. 1. Acuity: Acute, Chronic or Acute on Chronic 2. Type: Systolic, Diastolic or Systolic & Diastolic 3. Unspecified: CHF cannot be further specified regarding type or acuity 4. Other, with explanation of clinical findings 5. Clinically undetermined, no explanation for clinical findings PHYSICIAN RESPONSE Acuity: Acute on Chronic Type: Diastolic Please remember a lack of response to the above will prompt a phone page by [facility]oding staff. In responding to this query, please exercise your independent professional judgment. The purpose of this communication is to more accurately reflect the complexity of your patients condition. The fact that a question is asked does not imply that any particular answer is desired or expected. Thank you for your timely response to this clarification. Requestors name: Sydney THIS PHYSICIAN QUERY FORM IS A PERMANENT PART OF THE MEDICAL RECORD SYDNEY RAMOS December 05, 2019 18:22 DASHA BURCH DO December 05, 2019 19:53
== END 2019-12-03 15:15 | disposition home or self-care (01) | DRG 292 ==
LOC: EDUNIT# 10:04 → ER 10:05 → 4TH 14:08
PROVIDERS: ADMIT Family Medicine; ATTEND Family Medicine
DX: I11.0 Hypertensive heart disease with heart failure (principal); I50.33 Acute on chronic diastolic (congestive) heart failure; J44.1 Chronic obstructive pulmonary disease with (acute) exacerbation; R17 Unspecified jaundice; Z68.42 Body mass index [BMI] 45.0-49.9, adult; R55 Syncope and collapse; D69.6 Thrombocytopenia, unspecified; K70.9 Alcoholic liver disease, unspecified; E03.9 Hypothyroidism, unspecified; E66.9 Obesity, unspecified; K21.9 Gastro-esophageal reflux disease without esophagitis; F17.210 Nicotine dependence, cigarettes, uncomplicated; F17.290 Nicotine dependence, other tobacco product, uncomplicated; E87.6 Hypokalemia; E87.70 Fluid overload, unspecified; I87.8 Other specified disorders of veins; R19.7 Diarrhea, unspecified; M19.91 Primary osteoarthritis, unspecified site; M54.9 Dorsalgia, unspecified; G89.29 Other chronic pain; I42.9 Cardiomyopathy, unspecified; F10.20 Alcohol dependence, uncomplicated
CPT/HCPCS: 36415; 71045; 76705; 80048; 80053; 80061; 80074; 81000; 82140; 82728; 83540; 83605; 83735; 83880; 84439; 84443; 84484; 85025; 85610; 85730; 86141; 87040; 87088; 93005; 93306; 96374; 96375; 96376; G0378

== ENCOUNTER 2019-12-26 08:30 | Emergency (ER) | payer MEDICAID ==
[~2019-12-26] VITALS: Ht 172.7 cm; Wt 123.8 kg
[~2019-12-26 08:30] MED LIST changes: +ASPI-999 PO; +FURO40TA4 PO; +POTA-51 PO
--- NOTE | 2019-12-26 09:39 | ED Lower Extremity ---
General Chief Complaint: Lower Extremity Stated Complaint: FOOT PAIN Nursing Triage Note: Pt c/o bilat lower extremity pain and reports being out of pain medications until tomorrow. Pt reports seeing Dr. Eden Howell. Pt reports taking Oxycontin 5 mg QID. Nursing Sepsis Screen: No Definite Risk Source: patient Exam Limitations: no limitations History of Present Illness Date Seen by Provider: Dec 26, 2019 Time Seen by Provider: 09:10 Initial Comments Here with report of chronic bilateral foot pain that has been exacerbated because he ran out of his oxycodone 5 mg tablets yesterday. 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 He called the clinic and they told him to come to the ER for further evaluation. Denies other concerns other than his chronic foot pain and states that he just cannot take it. He is starting to have some withdrawal symptoms from narcotic withdrawal. Onset: yesterday Severity: moderate Pain/Injury Location: bilateral foot Method of Injury: other (chronic) Modifying Factors: Worse With Movement; Improves With Pain Medication Allergies and Home Medications Allergies Coded Allergies: CHAPITOANo Known Allergies (Unverified Allergy, Mild, 03/29/18) Home Medications Aspirin 81 Mg Tab.chew, 81 MG PO DAILY Prescribed by: DASHA BURCH on 12/03/19 1355 Furosemide 40 Mg Tablet, 40 MG PO DAILY Prescribed by: DASHA BURCH on 12/03/19 1355 Oxycodone HCl 5 Mg Tablet, 5 MG PO QID PRN for PAIN-SEVERE (8-10) Prescribed by: DASHA BURCH on 12/03/19 1356 Potassium Chloride 20 Meq Tablet.er, 20 MEQ PO DAILY Prescribed by: DASHA BURCH on 12/03/19 1355 Patient Home Medication List Home Medication List Reviewed: Yes Review of Systems Constitutional: see HPI; No chills, No fever Respiratory: no symptoms reported Cardiovascular: no symptoms reported Musculoskeletal: see HPI, joint pain, muscle pain Skin: change in color (venous stasis changes to both feet); No lesions Past Btwrbln-Knpppx-Acyrow Hx Past Med/Social Hx: Reviewed Nursing Past Med/Soc Hx Patient Social History Alcohol Use: Regular Use Number of Drinks Today: FF Alcohol Beverage of Choice: Beer, Vodka Recreational Drug Use: No Drug of Choice: THC Smoking Status: Current Everyday Smoker Type Used: Cigars Recent Foreign Travel: No Contact w/Someone Who Travel: No Recent Infectious Disease Expo: No Recent Hopitalizations: No Immunizations Up To Date Date of Pneumonia Vaccine: May 04, 2017 Date of Influenza Vaccine: May 04, 2017 Seasonal Allergies Seasonal Allergies: No Past Medical History Surgeries: No Respiratory: Yes (COUGH) COPD Cardiac: Yes Hypertension Neurological: No Reproductive Disorders: No Sexually Transmitted Disease: No HIV/AIDS: No Genitourinary: No Gastrointestinal: Yes Liver Disease/Jaundice Musculoskeletal: Yes Arthritis, Chronic Back Pain Endocrine: No HEENT: No Loss of Vision: Bilateral Hearing Impairment: Denies Cancer: No Psychosocial: No Integumentary: No Blood Disorders: No Adverse Reaction/Blood Tranf: No (N/A) Family Medical History Reviewed Nursing Family Hx Abdominal aortic aneurysm Alcoholism Arthritis Cardiovascular disease Completed stroke Diabetes mellitus Drug abuse Gastroenteritis Hypertension Myocardial infarction Psychosocial problem Physical Exam Vital Signs Vital Signs - First Documented 12/26/19 08:45 Temp 36.4 Pulse 83 Resp 14 B/P (MAP) 148/91 (110) Pulse Ox 96 O2 Delivery Room Air Capillary Refill : Less Than 3 Seconds Height, Weight, BMI Height: 5'8.00" Weight: 260lbs. 0.0oz. 117.030088cd; 41.00 BMI Method:Stated General Appearance: WD/WN, mild distress Cardiovascular: regular rate, rhythm, no murmur Respiratory: lungs clear, normal breath sounds Feet: bilateral foot other (bilateral feet with skin color changes consistent with venous stasis. No wounds noted. Tender to touch bilateral.) Neurologic/Psychiatric: alert, oriented x 3 Skin: warm/dry, other (see above) Progress/Results/Core Measures Results/Orders My Orders Orders - RAIN WOLFF MD Oxycodone Immediate Rel Tablet (Oxyir Ta (12/26/19 09:30) Medications Given in ED Current Medications Medications Dose Ordered Sig/[place] Route Start Time Stop Time Status Last Admin Dose Admin Oxycodone HCl 5 mg ONCE ONCE PO 12/26/19 09:30 12/26/19 09:31 DC 12/26/19 09:28 5 MG Vital Signs/I&O 12/26/19 08:45 Temp 36.4 Pulse 83 Resp 14 B/P (MAP) 148/91 (110) Pulse Ox 96 O2 Delivery Room Air Blood Pressure Mean: 110 Progress Progress Note : Progress Note Seen and evaluated. Oxycodone 5 mg IR tablet by mouth. Discharged home with return precautions. Patient verbalize understanding instructions and agreement with plan. I will write prescription for 4 tablets to cover until he picks up his prescription tomorrow. Departure Impression Primary Impression: Chronic pain of both feet Disposition: HOME, SELF-CARE Condition: Stable Departure-Patient Inst. Decision time for Depature: 09:41 Referrals: EDEN HOWELL MD (PCP/Family) Primary Care Physician Patient Instructions: Chronic Pain Add. Discharge Instructions: All discharge instructions reviewed with patient and/or family. Voiced understanding. \\ Take medications as directed. Follow-up with your Dr. and fill prescription tomorrow. Return for worse pain or other concerns as needed. Discuss with your DrMagali about pain medications adjustments. Scripts Oxycodone HCl (Oxycodone IR) 5 Mg Tablet 5 MG PO Q6H PRN for PAIN-MODERATE (5-7) for 1 Day, #4 TAB 0 Refills Prov: RAIN WOLFF MD 12/26/19 RAIN WOLFF MD Dec 26, 2019 09:39
[2019-12-26] MEDS ORDERED: OXYC5TAB96 PO (09:42)
[2019-12-26 09:45] VITALS: BP 141/83
== END 2019-12-26 09:48 | disposition home or self-care (01) ==
LOC: EDUNIT# 08:30 → ER 08:34
DX: M79.671 Pain in right foot (principal); M79.672 Pain in left foot; G89.29 Other chronic pain; I10 Essential (primary) hypertension; M54.9 Dorsalgia, unspecified; F17.290 Nicotine dependence, other tobacco product, uncomplicated; Z79.82 Long term (current) use of aspirin
CPT/HCPCS: 99283

== ENCOUNTER 2020-01-18 09:14 | Emergency (ER) | payer MEDICAID ==
[~2020-01-18] VITALS: Ht 172 cm; Wt 122.0 kg
--- OUTSIDE RECORDS SUMMARY | 2020-01-18 09:26 | XMS REPORT | Continuity of Care Document ---
Demographics Preferred Language Unknown Marital Status Unknown Judaism Affiliation Unknown Race Unknown Ethnic Group Unknown Author Organization Unknown Address Unknown Phone Unavailable Allergies Active Description [...] TISSUE DISORDERS 02/07/2017 WILLIAM ALLEN APRN Ot R60 .0 LOCALIZED EDEMA 03/29/2018 KOBE GARZA DO Ot Z01.8 18 ENCOUNTER FOR OTHER PREPROCEDURAL EXAMIN 03/31/2018 DELMAN DO, KOBE B Ot F17.2 10 NICOTINE DEPENDENCE, CIGARETTES, UNCOMPL 03/31/2018 DELMAN DO, KOBE B Ot G62.9 POLYNEUROPATHY, UNSPECIFIED 03/31/2018 DELMAN DO, KOBE B Ot I10 ESSENTIAL (PRIMARY) HYPERTENSION 03/31/2018 DELMAN DO, KOBE B Ot L72.0 EPIDERMAL CYST 03/31/2018 DELMAN DO, KOBE B Ot M19.9 0 UNSPECIFIED OSTEOARTHRITIS, UNSPECIFIED 03/31/2018 DELMAN DO, KOBE B Ot Z11.2 ENCOUNTER FOR SCREENING FOR OTHER BACTER 03/31/2018 DELMAN DO, KOBE B Ot Z79.5 2 OFFICE ADMIN (CURRENT) USE OF SYSTEMIC STER 04/05/2018 DELMAN DO, KOBE B Ot F17.2 10 NICOTINE DEPENDENCE, CIGARETTES, UNCOMPL 04/05/2018 DELMAN DO, KOBE B Ot G62.9 POLYNEUROPATHY, UNSPECIFIED 04/05/2018 DELMAN DO, KOBE B Ot I10 ESSENTIAL (PRIMARY) HYPERTENSION 04/05/2018 DELMAN DO, KOBE B Ot L72.0 EPIDERMAL CYST 04/05/2018 DELMAN DO, KOBE B Ot M19.9 0 UNSPECIFIED OSTEOARTHRITIS, UNSPECIFIED 04/05/2018 DELMAN DO, KOBE B Ot Z11.2 ENCOUNTER FOR SCREENING FOR OTHER BACTER 04/05/2018 GREG DO, KOBE B Ot Z79.5 2 OFFICE ADMIN (CURRENT) USE OF SYSTEMIC STER 04/09/2018 GREG DO, KOBE B Ot F17.2 10 NICOTINE DEPENDENCE, CIGARETTES, UNCOMPL 04/09/2018 GREG DO, KOBE B Ot G62.9 POLYNEUROPATHY, UNSPECIFIED 04/09/2018 DELMAN DO, KOBE B Ot I10 ESSENTIAL (PRIMARY) HYPERTENSION 04/09/2018 DELMAN DO, KOBE B Ot L72.0 EPIDERMAL CYST 04/09/2018 DELMAN DO, KOBE B Ot M19.9 0 UNSPECIFIED OSTEOARTHRITIS, UNSPECIFIED 04/09/2018 DELMAN DO, KOBE B Ot Z11.2 ENCOUNTER FOR SCREENING FOR OTHER BACTER 04/09/2018 GREG DO, KOBE B Ot Z79.5 2 OFFICE ADMIN (CURRENT) USE OF SYSTEMIC STER 05/12/2018 WILLIAM ALLEN OIL FIRE SPECIALIST Ot F10.10 ALCOHOL ABUSE, UNCOMPLICATED 05/12/2018 WILLAIM ALLEN APRN Ot F17.210 NICOTINE DEPENDENCE, CIGARETTES, UNCOMPL 05/12/2018 WILLIAM ALLEN APRN Ot I10 ESSENTIAL (PRIMARY) HYPERTENSION 05/12/2018 WILLIAM ALLEN APRN Ot M19.041 PRIMARY OSTEOARTHRITIS, RIGHT HAND 05/12/2018 WILLIAM ALLEN APRN Ot M19.042 PRIMARY OSTEOARTHRITIS, LEFT HAND 05/12/2018 WILLIAM ALLEN APRN Ot M79.89 OTHER SPECIFIED SOFT TISSUE DISORDERS 05/12/2018 WILLIAM ALLEN APRN Ot Z79.52 OFFICE ADMIN (CURRENT) USE OF SYSTEMIC STER 05/12/2018 WILLIAM ALLEN APRN Ot Z87.19 PERSONAL HISTORY OF OTHER DISEASES OF TH 05/17/2018 WILLIAM ALLEN APRN Ot F10.10 ALCOHOL [...] DISORDERS 05/17/2018 WILLIAM ALLEN APRN Ot Z79.52 OFFICE ADMIN (CURRENT) USE OF SYSTEMIC STER 05/17/2018 WILLIAM ALLEN APRN Ot Z87.19 PERSONAL HISTORY OF OTHER DISEASES OF TH 06/08/2018 GREG MORALES KOBE B Ot F17.2 10 NICOTINE DEPENDENCE, CIGARETTES, UNCOMPL 06/08/2018 GREG DO, KOBE B Ot G62.9 POLYNEUROPATHY, UNSPECIFIED 06/08/2018 DELMAN DO, KOBE B Ot I10 ESSENTIAL (PRIMARY) HYPERTENSION 06/08/2018 DELJULIANNE DO, KOBE B Ot L72.0 EPIDERMAL CYST 06/08/2018 DELJULIANNE DO, KOBE B Ot M19.9 0 UNSPECIFIED OSTEOARTHRITIS, UNSPECIFIED 06/08/2018 DELMAN DO KOBE B Ot Z11.2 ENCOUNTER FOR SCREENING FOR OTHER BACTER 06/08/2018 GREG MORALES KOBE B Ot Z79.5 2 OFFICE ADMIN (CURRENT) USE OF SYSTEMIC STER 06/15/2018 MAIK, ANGELA AIRCRAFT ENGINE MECHANIC OVERHAUL Ot F12.10 CANNABIS ABUSE, UNCOMPLICATED 06/15/2018 MAIK, ANGELA AIRCRAFT ENGINE MECHANIC OVERHAUL Ot F17.210 NICOTINE DEPENDENCE, CIGARETTES, UNCOMPL 06/15/2018 MAIK, ANGELA AIRCRAFT ENGINE MECHANIC OVERHAUL Ot I10 ESSENTIAL (PRIMARY) HYPERTENSION 06/15/2018 MAIK, ANGELA AIRCRAFT ENGINE MECHANIC OVERHAUL Ot I73.9 PERIPHERAL VASCULAR DISEASE, UNSPECIFIED 06/15/2018 MAIK, ANGELA AIRCRAFT ENGINE MECHANIC OVERHAUL Ot M19.041 PRIMARY OSTEOARTHRITIS, RIGHT HAND 06/15/2018 MAIK, ANGELA AIRCRAFT ENGINE MECHANIC OVERHAUL Ot M19.042 PRIMARY OSTEOARTHRITIS, LEFT HAND 06/15/2018 MAIK, ANGELA AIRCRAFT ENGINE MECHANIC OVERHAUL Ot M19.071 PRIMARY OSTEOARTHRITIS, RIGHT ANKLE AND 06/15/2018 MAIK, ANGELA AIRCRAFT ENGINE MECHANIC OVERHAUL Ot M19.072 PRIMARY OSTEOARTHRITIS, LEFT ANKLE AND F 06/15/2018 MAIK, ANGELA AIRCRAFT ENGINE MECHANIC OVERHAUL Ot M79.641 PAIN IN RIGHT HAND 06/15/2018 MAIK, ANGELA AIRCRAFT ENGINE MECHANIC OVERHAUL Ot Z79.52 CORRECTION (CURRENT) USE OF SYSTEMIC STER 06/15/2018 MAIK, ANGELA AIRCRAFT ENGINE MECHANIC OVERHAUL Ot Z87.19 PERSONAL HISTORY OF OTHER DISEASES OF 06/17/2018 MAIK, ANGELA AIRCRAFT ENGINE MECHANIC OVERHAUL Ot F12.10 CANNABIS ABUSE, UNCOMPLICATED 06/17/2018 MAIK, ANGELA AIRCRAFT ENGINE MECHANIC OVERHAUL Ot F17.210 NICOTINE DEPENDENCE, CIGARETTES, UNCOMPL 06/17/2018 MAIK, ANGELA AIRCRAFT ENGINE MECHANIC OVERHAUL Ot I10 ESSENTIAL (PRIMARY) HYPERTENSION 06/17/2018 MAIK, ANGELA AIRCRAFT ENGINE MECHANIC OVERHAUL Ot I73.9 PERIPHERAL VASCULAR DISEASE, UNSPECIFIED 06/17/2018 MAIK, ANGELA AIRCRAFT ENGINE MECHANIC OVERHAUL Ot M19.041 PRIMARY OSTEOARTHRITIS, RIGHT HAND 06/17/2018 MAIK, ANGELA AIRCRAFT ENGINE MECHANIC OVERHAUL Ot M19.042 PRIMARY OSTEOARTHRITIS, LEFT HAND 06/17/2018 MAIK, ANGELA AIRCRAFT ENGINE MECHANIC OVERHAUL Ot M19.071 PRIMARY OSTEOARTHRITIS, RIGHT ANKLE AND 06/17/2018 MAIK, ANGELA AIRCRAFT ENGINE MECHANIC OVERHAUL Ot M19.072 PRIMARY OSTEOARTHRITIS, LEFT ANKLE AND F 06/17/2018 MAIK, ANGELA AIRCRAFT ENGINE MECHANIC OVERHAUL Ot M79.641 PAIN IN RIGHT HAND 06/17/2018 MAIK, ANGELA AIRCRAFT ENGINE MECHANIC OVERHAUL Ot Z79.52 OFFICE ADMIN (CURRENT) USE OF SYSTEMIC STER 06/17/2018 MAIK, ANGELA AIRCRAFT ENGINE MECHANIC OVERHAUL Ot Z87.19 PERSONAL HISTORY OF OTHER DISEASES OF TH 06/17/2018 MAIK, ANGELA AIRCRAFT ENGINE MECHANIC OVERHAUL Ot F12.10 CANNABIS ABUSE, UNCOMPLICATED 06/17/2018 MAIK, ANGELA AIRCRAFT ENGINE MECHANIC OVERHAUL Ot F17.210 NICOTINE DEPENDENCE, CIGARETTES, UNCOMPL 06/17/2018 MAIK, ANGELA AIRCRAFT ENGINE MECHANIC OVERHAUL Ot I10 ESSENTIAL (PRIMARY) HYPERTENSION 06/17/2018 MAIK, ANGELA AIRCRAFT ENGINE MECHANIC OVERHAUL Ot I73.9 PERIPHERAL VASCULAR DISEASE, UNSPECIFIED 06/17/2018 MAIK, ANGELA AIRCRAFT ENGINE MECHANIC OVERHAUL Ot M19.041 PRIMARY OSTEOARTHRITIS, RIGHT HAND 06/17/2018 MAIK, ANGELA AIRCRAFT ENGINE MECHANIC OVERHAUL Ot M19.042 PRIMARY OSTEOARTHRITIS, LEFT HAND 06/17/2018 MAIK, ANGELA AIRCRAFT ENGINE MECHANIC OVERHAUL Ot M19.071 PRIMARY OSTEOARTHRITIS, RIGHT ANKLE AND 06/17/2018 MAIK, ANGELA AIRCRAFT ENGINE MECHANIC OVERHAUL Ot M19.072 PRIMARY OSTEOARTHRITIS, LEFT ANKLE AND F 06/17/2018 MAIK, ANGELA AIRCRAFT ENGINE MECHANIC OVERHAUL Ot M79.641 PAIN IN RIGHT HAND 06/17/2018 MAIK, ANGELA AIRCRAFT ENGINE MECHANIC OVERHAUL Ot Z79.52 CORRECTION (CURRENT) USE OF SYSTEMIC STER 06/17/2018 MAIK, ANGELA AIRCRAFT ENGINE MECHANIC OVERHAUL Ot Z87.19 PERSONAL HISTORY OF OTHER DISEASES OF 08/31/2018 BERNOT, ASHER Ot I10 ESSENTIAL (PRIMARY) HYPERTENSION 08/31/2018 BERNOT, ASHER Ot M19.90 UNSPECIFIED OSTEOARTHRITIS, UNSPECIFIED 08/31/2018 BERNOT, ASHER Ot Z79.52 CORRECTION (CURRENT) USE OF SYSTEMIC STER 08/31/2018 BERNOT, ASHER Ot Z87.09 PERSONAL HISTORY OF OTHER DISEASES OF 08/31/2018 BERNOT, ASHER Ot Z87.19 PERSONAL HISTORY OF OTHER DISEASES OF 09/02/2018 BERNOT, ASHER Ot I10 ESSENTIAL (PRIMARY) HYPERTENSION 09/02/2018 BERNOT, ASHER Ot M19.90 UNSPECIFIED OSTEOARTHRITIS, UNSPECIFIED 09/02/2018 BERNOT, ASHER Ot Z79.52 CORRECTION (CURRENT) USE OF SYSTEMIC STER 09/02/2018 BERNOT, ASHER Ot Z87.09 PERSONAL HISTORY OF OTHER DISEASES OF 09/02/2018 BERNOT, ASHER Ot Z87.19 PERSONAL HISTORY OF OTHER DISEASES OF 10/22/2018 MARTI MORELOS, EDEN Yarbrough Ot E87.70 FLUID OVERLOAD, UNSPECIFIED 10/22/2018 EDEN KIDD MD Ot F10.20 ALCOHOL DEPENDENCE, UNCOMPLICATED 10/22/2018 EDEN KIDD MD Ot K76 .9 LIVER DISEASE, UNSPECIFIED 10/22/2018 EDEN KIDD MD, Ot M06 .9 RHEUMATOID ARTHRITIS, UNSPECIFIED 10/22/2018 EDEN KIDD MD Ot Z79.82 OFFICE ADMIN (CURRENT) USE OF ASPIRIN 10/22/2018 EDEN KIDD MD, Ot Z79.899 OTHER CORRECTION (CURRENT) DRUG THERAPY 10/22/2018 EDEN KIDD MD Ot E87.70 FLUID OVERLOAD, UNSPECIFIED 10/22/2018 EDEN KIDD MD, Ot F10.20 ALCOHOL DEPENDENCE, UNCOMPLICATED 10/22/2018 EDEN KIDD MD Ot K76 .9 LIVER DISEASE, UNSPECIFIED 10/22/2018 EDEN KIDD MD, Ot M06 .9 RHEUMATOID ARTHRITIS, UNSPECIFIED 12/08/2018 MAIK, ANGELA AIRCRAFT ENGINE MECHANIC OVERHAUL Ot F12.10 CANNABIS ABUSE, UNCOMPLICATED 12/08/2018 MAIK, ANGELA AIRCRAFT ENGINE MECHANIC OVERHAUL Ot F17.210 NICOTINE DEPENDENCE, CIGARETTES, UNCOMPL 12/08/2018 MAIK, NAGELA AIRCRAFT ENGINE MECHANIC OVERHAUL Ot I10 ESSENTIAL (PRIMARY) HYPERTENSION 12/08/2018 MAIK, ANGELA AIRCRAFT ENGINE MECHANIC OVERHAUL Ot I73.9 PERIPHERAL VASCULAR DISEASE, UNSPECIFIED 12/08/2018 MAIK, ANGELA AIRCRAFT ENGINE MECHANIC OVERHAUL Ot M19.041 PRIMARY OSTEOARTHRITIS, RIGHT HAND 12/08/2018 MAIK, ANGELA AIRCRAFT ENGINE MECHANIC OVERHAUL Ot M19.042 PRIMARY OSTEOARTHRITIS, LEFT HAND 12/08/2018 MAIK, ANGELA AIRCRAFT ENGINE MECHANIC OVERHAUL Ot M19.071 PRIMARY OSTEOARTHRITIS, RIGHT ANKLE AND 12/08/2018 MAIK, ANGELA AIRCRAFT ENGINE MECHANIC OVERHAUL Ot M19.072 PRIMARY OSTEOARTHRITIS, LEFT ANKLE AND F 12/08/2018 MAIK, ANGELA AIRCRAFT ENGINE MECHANIC OVERHAUL Ot M79.641 PAIN IN RIGHT HAND 12/08/2018 MAIK, ANGELA AIRCRAFT ENGINE MECHANIC OVERHAUL Ot Z79.52 CORRECTION (CURRENT) USE OF SYSTEMIC STER 12/08/2018 MAIK, ANGELA AIRCRAFT ENGINE MECHANIC OVERHAUL Ot Z87.19 PERSONAL HISTORY OF OTHER DISEASES OF TH 12/03/2019 CHEY ZHENG MD Ot D69.6 THROMBOCYTOPENIA, UNSPECIFIED 12/03/2019 CHEY ZHENG MD Ot E03.9 HYPOTHYROIDISM, UNSPECIFIED 12/03/2019 CHEY ZHENG MD Ot E66.9 OBESITY, UNSPECIFIED 12/03/2019 CHEY ZHENG MD Ot E87.6 HYPOKALEMIA 12/03/2019 CHEY ZHENG MD Ot E87.7 0 FLUID OVERLOAD, UNSPECIFIED 12/03/2019 CHEY ZHENG MD Ot F10.2 0 ALCOHOL DEPENDENCE, UNCOMPLICATED 12/03/2019 MARCE MORELOS, CHEY Tracy Ot F17.2 10 NICOTINE DEPENDENCE, CIGARETTES, UNCOMPL 12/03/2019 MARCE MORELOS, CHEY Tracy Ot F17.2 90 NICOTINE DEPENDENCE, OTHER TOBACCO PRODU 12/03/2019 CHEY ZHENG MD Ot G89.2 9 OTHER CHRONIC PAIN 12/03/2019 CHEY ZHENG MD Ot I11.0 HYPERTENSIVE HEART DISEASE WITH HEART FA 12/03/2019 CHEY ZHENG MD Ot I42.9 CARDIOMYOPATHY, UNSPECIFIED 12/03/2019 CHEY ZHENG MD Ot I50.3 3 ACUTE ON CHRONIC DIASTOLIC (CONGESTIVE) 12/03/2019 CHEY ZHENG MD Ot I87.8 OTHER SPECIFIED DISORDERS OF VEINS 12/03/2019 CHEY ZHENG MD Ot J44.1 CHRONIC OBSTRUCTIVE PULMONARY DISEASE W 12/03/2019 CHEY ZHENG MD Ot K21.9 GASTRO-ESOPHAGEAL REFLUX DISEASE WITHOUT 12/03/2019 CHEY ZHENG MD Ot K70.9 ALCOHOLIC LIVER DISEASE, UNSPECIFIED 12/03/2019 CHEY ZHENG MD Ot M19.9 1 PRIMARY OSTEOARTHRITIS, UNSPECIFIED SITE 12/03/2019 CHEY ZHENG MD Ot M54.9 DORSALGIA, UNSPECIFIED 12/03/2019 CHEY ZHENG MD Ot R17 UNSPECIFIED JAUNDICE 12/03/2019 CHEY ZHENG MD Ot R19.7 DIARRHEA, UNSPECIFIED 12/03/2019 CHEY ZHENG MD Ot R55 SYNCOPE AND COLLAPSE 12/03/2019 CHEY ZHENG MD Ot Z68.4 2 BODY MASS INDEX (BMI) 45.0-49.9, ADULT 12/03/2019 CHEY ZHENG MD Ot D69.6 THROMBOCYTOPENIA, UNSPECIFIED 12/03/2019 CHEY ZHENG MD Ot E03.9 HYPOTHYROIDISM, UNSPECIFIED 12/03/2019 CHEY ZHENG MD Ot E66.9 OBESITY, UNSPECIFIED 12/03/2019 CHEY ZHENG MD Ot E87.6 HYPOKALEMIA 12/03/2019 CHEY ZHENG MD Ot E87.7 0 FLUID OVERLOAD, UNSPECIFIED 12/03/2019 CHEY ZHENG MD Ot F10.2 0 ALCOHOL DEPENDENCE, UNCOMPLICATED 12/03/2019 CHEY ZHENG MD Ot F17.2 10 NICOTINE DEPENDENCE, CIGARETTES, UNCOMPL 12/03/2019 CHEY ZHENG MD Ot F17.2 90 NICOTINE DEPENDENCE, OTHER TOBACCO PRODU 12/03/2019 CHEY ZHENG MD Ot G89.2 9 OTHER CHRONIC PAIN 12/03/2019 CHEY ZHENG MD Ot I11.0 HYPERTENSIVE HEART DISEASE WITH HEART FA 12/03/2019 CHEY ZHENG MD Ot I42.9 CARDIOMYOPATHY, UNSPECIFIED 12/03/2019 CHEY ZHENG MD Ot I50.3 1 ACUTE DIASTOLIC (CONGESTIVE) HEART FAILU 12/03/2019 CHEY ZHENG MD Ot I50.3 3 ACUTE ON CHRONIC DIASTOLIC (CONGESTIVE) 12/03/2019 CHEY ZHENG MD Ot I87.8 OTHER SPECIFIED DISORDERS OF VEINS 12/03/2019 CHEY ZHENG MD Ot J44.1 CHRONIC OBSTRUCTIVE PULMONARY DISEASE W 12/03/2019 CHEY ZHENG MD Ot K21.9 GASTRO-ESOPHAGEAL REFLUX DISEASE WITHOUT 12/03/2019 CHEY ZHENG MD Ot K70.9 ALCOHOLIC LIVER DISEASE, UNSPECIFIED 12/03/2019 CHEY ZHENG MD Ot M19.9 1 PRIMARY OSTEOARTHRITIS, UNSPECIFIED SITE 12/03/2019 CHEY ZHENG MD Ot M54.9 DORSALGIA, UNSPECIFIED 12/03/2019 CHEY ZHENG MD Ot R17 UNSPECIFIED JAUNDICE 12/03/2019 CHEY ZHENG MD Ot R19.7 DIARRHEA, UNSPECIFIED 12/03/2019 CHEY ZHENG MD Ot R55 SYNCOPE AND COLLAPSE 12/03/2019 CHEY ZHENG MD Ot Z68.4 2 BODY MASS INDEX (BMI) 45.0-49.9, ADULT 12/28/2019 RAIN WOLFF MD, Ot F17.290 NICOTINE DEPENDENCE, OTHER TOBACCO PRODU 12/28/2019 RAIN WOLFF MD, Ot G89.29 OTHER CHRONIC PAIN 12/28/2019 RAIN WOLFF MD Ot I10 ESSENTIAL (PRIMARY) HYPERTENSION 12/28/2019 RAIN WOLFF MD, Ot M54.9 DORSALGIA, UNSPECIFIED 12/28/2019 NEW MORELOS, RAIN Sanders Ot M79.671 PAIN IN RIGHT FOOT 12/28/2019 RAIN WOLFF MD Ot M79.672 PAIN IN LEFT FOOT 12/28/2019 NEW MORELOS, RAIN Sanders Ot Z79.82 OFFICE ADMIN (CURRENT) USE OF ASPIRIN Procedures There is no data. Results Test Result Range Complete blood count (CBC) with automate d white blood cell (WBC) differential - 02/07/17 20:53 Blood leukocytes automated count (number/volume) 7.6 10*3/uL 4.3-11.0 Blood erythrocytes automated count (number/volume) 4.51 10*6/uL 4.35-5.85 Venous blood hemoglobin measurement (mass/volume) 14.8 g/dL 13.3-17.7 Blood hematocrit (volume fraction) 44 % 40-54 Automated erythrocyte mean corpuscular volume 97 [ foz_us] 80-99 Automated erythrocyte mean corpuscular h emoglobin (mass per erythrocyte) 33 pg 25-34 Automated erythrocyte mean corpuscular h emoglobin concentration measurement (mass/volume) 34 g/dL 32-36 Automated erythrocyte distribution width ratio 14. 4 % 10.0- 14.5 Automated blood platelet count (count/volume) 173 10*3/uL [...] 10*3 1.0-4.0 Blood monocytes automated count (number/volume) 1. 1 10*3 0.0-1.0 Automated eosinophil count 0.3 10*3/uL 0 .0-0.3 Automated blood basophil count (count/volume) 0.0 10*3/uL 0.0-0.1 Comprehensive metabolic panel - 02/07/17 20:53 Serum or plasma sodium measurement (moles/volume) 136 mmol/L 135-145 Serum or plasma potassium measurement (moles/volume) 3.5 mmol/L 3.6-5.0 Serum or plasma chloride measurement (moles/volume) 104 mmol/L 98-107 Carbon dioxide 18 mmol/L 21-32 Serum or plasma anion gap determination (moles/volume) 14 mmol/L 5-14 Serum or plasma urea nitrogen measurement (mass/volume ) 5 mg/dL 7-18 Serum or plasma creatinine measurement (mass/volume) 0.83 mg/dL 0.60-1.30 Serum or plasma urea nitrogen/creatinine mass ratio 6 NRG Serum or plasma creatinine measurement w ith calculation of estimated glomerular filtration rate > NRG Serum or plasma glucose measurement (mass/volume) 98 mg/dL 70-105 Serum or plasma calcium measurement (mass/volume) 8.6 mg/dL 8.5-10.1 Serum or plasma total bilirubin measurement (mass/volu me) 0.4 mg/dL 0.1-1.0 Serum or plasma alkaline phosphatase esme surement (enzymatic activity/volume) 87 U/L 40-136 Serum or plasma aspartate aminotransfera se measurement (enzymatic activity/volume) 47 U/L 5-34 Serum or plasma alanine aminotransferase measurement (enzymatic activity/volume) 31 U/L 0-55 Serum or plasma protein measurement (mass/volume) 8.1 g/dL 6.4-8.2 Serum or plasma albumin measurement (mass/volume) 3.8 g/dL 3.2-4.5 Serum or plasma troponin i.cardiac measu rement (mass/volume) - 02/07/17 20:53 Serum or plasma troponin i.cardiac measurement (mass/v olume) < ng/mL <0.30 Blood manual differential performed dete ction - 02/07/17 20:53 Blood monocytes/100 leukocytes 10 [...] % NRG THYROID STIMULATING HORMONE - 02/07/17 2 0:53 THYROID STIMULATING HORMONE 2.86 u[iU]/mL 0.35-4.94 Serum or plasma ethanol measurement (mas s/volume) - 02/07/17 20:53 Serum or plasma ethanol measurement (mass/volume) 263 mg/dL <10 Serum or plasma lithium measurement (mol es/volume) - 02/07/17 20:53 BNP level 30.2 pg/mL <100.0 PT panel in platelet poor plasma by coag ulation assay - 02/07/17 20:53 Prothrombin time (PT) in platelet poor plasma by coagu lation assay 12.9 s 12.2-14.7 INR in platelet poor plasma or blood by coagulation as say 1.0 0.8-1.4 Urine drug screening test - 02/07/17 21: 58 Urine phencyclidine detection by screening method NEGATIVE NEGATIVE Urine benzodiazepines detection by screening method NEGATIVE NEGATIVE Urine cocaine detection NEGATIVE NEGATI VE Urine amphetamines detection by screening method N EGATIVE NEGATIVE Urine methamphetamine detection by screening method NEGATIVE NEGATIVE Urine cannabinoids detection by screening method N EGATIVE NEGATIVE Urine opiates detection by screening method NEGATI VE NEGATIVE Urine barbiturates detection NEGATIVE N EGATIVE Screening urine tricyclic antidepressants detection NEGATIVE NEGATIVE Urine methadone detection by screening method NEGA TIVE NEGATIVE Urine oxycodone detection NEGATIVE NEGA TIVE Urine propoxyphene detection NEGATIVE N EGATIVE CBC With Differential/Platelet - 7 18:24 WBC 5.9 x10E3/uL 3.4-10.8 RBC 4.36 x10E6/uL 4.14-5.80 Hemoglobin 14.2 g/dL 12.6-17.7 Hematocrit 42.5 % 37.5-51.0 MCV 98 fL 79-97 MCH 32.6 pg 26.6-33.0 MCHC 33.4 g/dL 31.5-35.7 RDW 14.4 % 12.3-15.4 Platelets 166 x10E3/uL 150-379 Neutrophils 36 % Lymphs 50 % Monocytes 10 % Eos 4 % Basos 0 % Neutrophils (Absolute) 2.1 x10E3/uL 1.4- 7.0 Lymphs (Absolute) 2.9 x10E3/uL 0.7-3.1 Monocytes(Absolute) 0.6 x10E3/uL 0.1-0.9 Eos (Absolute) 0.3 x10E3/uL 0.0-0.4 Baso (Absolute) 0.0 x10E3/uL 0.0-0.2 Immature Granulocytes 0 % Immature Grans (Abs) 0.0 x10E3/uL 0.0-0. 1 Comp. Metabolic Panel (14) - 03/09/17 18 :24 Glucose, Serum 90 mg/dL 65-99 BUN 6 mg/dL 6-24 Creatinine, Serum 0.77 mg/dL 0.76-1.27 eGFR If NonAfricn Am 101 mL/min/1.73 >59 eGFR If Africn Am 117 mL/min/1.73 >5 9 BUN/Creatinine Ratio 8 9-20 Sodium, Serum 136 [...] IU/L 0-44 Rheumatoid Arthritis Factor - 03/09/17 1 8:24 RA Latex Turbid. 449.4 IU/mL 0.0-13.9 C-Reactive Protein, Quant - 03/09/17 18: 24 C-Reactive Protein, Quant 9.0 mg/L 0.0- 4.9 Antinuclear Antibodies, IFA - 03/09/17 1 8:24 Antinuclear Antibodies, IFA Negative CMP - 03/09/17 18:24 Glucose, Serum 90 mg/dL 65-99 BUN 6 mg/dL 6-24 Creatinine, Serum 0.77 mg/dL 0.76-1.27 eGFR If NonAfricn Am 101 mL/min/1.73 >59 eGFR If Africn Am 117 mL/min/1.73 >5 9 BUN/Creatinine Ratio 8 9-20 Sodium, Serum 136 [...] - 02/17/18 13:43 ABSOLUTE NEUTROPHILS 2067 cells/uL 1500- 7800 ABSOLUTE MONOCYTES 551 cells/uL 200-950 ABSOLUTE EOSINOPHILS 38 cells/uL 15-500 ABSOLUTE BASOPHILS 0 cells/uL 0-200 NEUTROPHILS 54.4 % NRG LYMPHOCYTES 29.1 % NRG MONOCYTES 14.5 % NRG EOSINOPHILS 1.0 % NRG BASOPHILS 0 % NRG ABSOLUTE BAND NEUTROPHILS 38 cells/uL 0- 750 ABSOLUTE LYMPHOCYTES 1106 cells/uL 850-3 900 BAND NEUTROPHILS 1.0 % NRG PLATELET ESTIMATION DECREASED ADEQUATE AMMONIA - 02/17/18 13:43 AMMONIA (P) 65 umol/L < OR = 47 Methicillin resistant Staphylococcus aur eus (MRSA) screening culture - 03/31/18 08:18 Methicillin resistant Staphylococcus aureus (MRSA) scr eening culture NEG NRG Complete blood count (CBC) with automate d white blood cell (WBC) differential - 05/12/18 11:19 Blood leukocytes automated count (number/volume) 6.4 10*3/uL 4.3-11.0 Blood erythrocytes automated count (number/volume) 3.98 10*6/uL 4.35-5.85 Venous blood hemoglobin measurement (mass/volume) 13.3 g/dL 13.3-17.7 Blood hematocrit (volume fraction) 40 % 40-54 Automated erythrocyte mean corpuscular volume 100 [foz_us] 80-99 Automated erythrocyte mean corpuscular h emoglobin (mass per erythrocyte) 33 pg 25-34 Automated erythrocyte mean corpuscular h emoglobin concentration measurement (mass/volume) 34 g/dL 32-36 Automated erythrocyte distribution width ratio 14. 4 % 10.0- 14.5 Automated blood platelet count (count/volume) 236 10*3/uL [...] 10*3 1.0-4.0 Blood monocytes automated count (number/volume) 0. 9 10*3 0.0-1.0 Automated eosinophil count 0.1 10*3/uL 0 .0-0.3 Automated blood basophil count (count/volume) 0.0 10*3/uL 0.0-0.1 Comprehensive metabolic panel - 05/12/18 11:19 Serum or plasma sodium measurement (moles/volume) 132 mmol/L 135-145 Serum or plasma potassium measurement (moles/volume) 4.2 mmol/L 3.6-5.0 Serum or plasma chloride measurement (moles/volume) 98 mmol/L 98-107 Carbon dioxide 21 mmol/L 21-32 Serum or plasma anion gap determination (moles/volume) 13 mmol/L 5-14 Serum or plasma urea nitrogen measurement (mass/volume ) 7 mg/dL 7-18 Serum or plasma creatinine measurement (mass/volume) 0.69 mg/dL 0.60-1.30 Serum or plasma urea nitrogen/creatinine mass ratio 10 NRG Serum or plasma creatinine measurement w ith calculation of estimated glomerular filtration rate > NRG Serum or plasma glucose measurement (mass/volume) 114 mg/dL 70-105 Serum or plasma calcium measurement (mass/volume) 9.2 mg/dL 8.5-10.1 Serum or plasma total bilirubin measurement (mass/volu me) 0.9 mg/dL 0.1-1.0 Serum or plasma alkaline phosphatase esme surement (enzymatic activity/volume) 68 U/L 40-136 Serum or plasma aspartate aminotransfera se measurement (enzymatic activity/volume) 35 U/L 5-34 Serum or plasma alanine aminotransferase measurement (enzymatic activity/volume) 30 U/L 0-55 Serum or plasma protein measurement (mass/volume) 7.3 g/dL 6.4-8.2 Serum or plasma albumin measurement (mass/volume) 3.3 g/dL 3.2-4.5 CALCIUM CORRECTED 9.8 mg/dL 8.5-10.1 Erythrocyte sedimentation rate by maría gren method - 05/12/18 11:19 Erythrocyte sedimentation rate by westergren method 76 mm 0- 30 THYROID STIMULATING HORMONE - 05/12/18 1 1:19 THYROID STIMULATING HORMONE 2.83 u[iU]/mL 0.35-4.94 Serum or plasma thyroxine (T4) free celina urement (mass/volume) - 05/12/18 11:19 Serum or plasma thyroxine (T4) free measurement (mass/ volume) 0.92 ng/dL 0.70-1.48 Serum or plasma ethanol measurement (mas s/volume) - 05/12/18 11:19 Serum or plasma ethanol measurement (mass/volume) < mg/dL <10 CMP - 10/13/18 12:29 GLUCOSE 84 mg/dL 65-99 UREA NITROGEN (BUN) 7 mg/dL 7-25 CREATININE 0.73 mg/dL 0.70-1.33 eGFR NON-AFR. SERBIAN 102 mL/min/1.73m2 > OR = 60 eGFR 119 mL/min/1.73m2 > OR = 60 BUN/CREATININE RATIO NOT APPLICABLE (calc) 6-22 SODIUM 133 mmol/L 135-146 POTASSIUM 4.5 mmol/L 3.5-5.3 CHLORIDE 96 mmol/L 98-110 CARBON DIOXIDE 28 mmol/L 20-32 CALCIUM 9.6 mg/dL 8.6-10.3 PROTEIN, TOTAL 7.0 g/dL 6.1-8.1 ALBUMIN 3.6 g/dL 3.6-5.1 GLOBULIN 3.4 g/dL (calc) 1.9-3.7 ALBUMIN/GLOBULIN RATIO 1.1 (calc) 1.0-2. 5 BILIRUBIN, TOTAL 0.4 mg/dL 0.2-1.2 ALKALINE PHOSPHATASE 69 U/L 40-115 AST 24 U/L 10-35 ALT 17 U/L 9-46 CBC w/MANUAL DIFF - 10/13/18 12:29 WHITE BLOOD CELL COUNT 6.1 Thousand/uL 3 .8-10.8 RED BLOOD CELL COUNT 4.70 Million/uL 4.2 0-5.80 HEMOGLOBIN 14.0 g/dL 13.2-17.1 HEMATOCRIT 41.3 % 38.5-50.0 MCV 87.9 fL 80.0-100.0 MCH 29.8 pg 27.0-33.0 MCHC 33.9 g/dL 32.0-36.0 RDW 13.7 % 11.0-15.0 PLATELET COUNT 278 Thousand/uL 140-400 MPV 9.9 fL 7.5-12.5 COMMENT(S) NRG ESR/SED RATE - 10/13/18 12:29 SED RATE BY MODIFIED WESTERGREN 67 mm/h < OR = 20 CRP - 10/13/18 12:29 C-REACTIVE PROTEIN 19.4 mg/L <8.0 DIFFERENTIAL, MANUAL - 10/13/18 12:29 ABSOLUTE NEUTROPHILS 3684 cells/uL 1500- 7800 ABSOLUTE MONOCYTES 763 cells/uL 200-950 ABSOLUTE EOSINOPHILS 0 cells/uL 15-500 ABSOLUTE BASOPHILS 0 cells/uL 0-200 NEUTROPHILS 60.4 % NRG LYMPHOCYTES 27.1 % NRG MONOCYTES 12.5 % NRG EOSINOPHILS 0 % NRG BASOPHILS 0 % NRG ABSOLUTE LYMPHOCYTES 1653 cells/uL 850-3 900 PLATELET ESTIMATION ADEQUATE ADEQUATE BNP - 10/13/18 12:31 B TYPE NATRIURETIC PEPTIDE (BNP) 122 pg/mL <100 Complete blood count (CBC) with automate d white blood cell (WBC) differential - 10/21/18 12:45 Blood leukocytes automated count (number/volume) 6.3 10*3/uL 4.3-11.0 Blood erythrocytes automated count (number/volume) 4.40 10*6/uL 4.35-5.85 Venous blood hemoglobin measurement (mass/volume) 12.9 g/dL 13.3-17.7 Blood hematocrit (volume fraction) 39 % 40-54 Automated erythrocyte mean corpuscular volume 89 [ foz_us] 80-99 Automated erythrocyte mean corpuscular h emoglobin (mass per erythrocyte) 29 pg 25-34 Automated erythrocyte mean corpuscular h emoglobin concentration measurement (mass/volume) 33 g/dL 32-36 Automated erythrocyte distribution width ratio 15. 2 % 10.0- 14.5 Automated blood platelet count (count/volume) 271 10*3/uL [...] 10*3 1.0-4.0 Blood monocytes automated count (number/volume) 0. 6 10*3 0.0-1.0 Automated eosinophil count 0.1 10*3/uL 0 .0-0.3 Automated blood basophil count (count/volume) 0.0 10*3/uL 0.0-0.1 Comprehensive metabolic panel - 10/21/18 12:45 Serum or plasma sodium measurement (moles/volume) 134 mmol/L 135-145 Serum or plasma potassium measurement (moles/volume) 4.5 mmol/L 3.6-5.0 Serum or plasma chloride measurement (moles/volume) 101 mmol/L 98-107 Carbon dioxide 21 mmol/L 21-32 Serum or plasma anion gap determination (moles/volume) 12 mmol/L 5-14 Serum or plasma urea nitrogen measurement (mass/volume ) 8 mg/dL 7-18 Serum or plasma creatinine measurement (mass/volume) 0.72 mg/dL 0.60-1.30 Serum or plasma urea nitrogen/creatinine mass ratio 11 NRG Serum or plasma creatinine measurement w ith calculation of estimated glomerular filtration rate > NRG Serum or plasma glucose measurement (mass/volume) 93 mg/dL 70-105 Serum or plasma calcium measurement (mass/volume) 9.8 mg/dL 8.5-10.1 Serum or plasma total bilirubin measurement (mass/volu me) 0.4 mg/dL 0.1-1.0 Serum or plasma alkaline phosphatase esme surement (enzymatic activity/volume) 72 U/L 40-136 Serum or plasma aspartate aminotransfera se measurement (enzymatic activity/volume) 48 U/L 5-34 Serum or plasma alanine aminotransferase measurement (enzymatic activity/volume) 31 U/L 0-55 Serum or plasma protein measurement (mass/volume) 7.4 g/dL 6.4-8.2 Serum or plasma albumin measurement (mass/volume) 3.5 g/dL 3.2-4.5 CALCIUM CORRECTED 10.2 mg/dL 8.5-10.1 Serum or plasma ethanol measurement (mas s/volume) - 10/21/18 12:45 Serum or plasma ethanol measurement (mass/volume) 45 mg/dL <10 Serum or plasma lithium measurement (mol es/volume) - 10/21/18 12:45 BNP level 98.0 pg/mL <100.0 Automated blood complete blood count (he mogram) panel - 10/22/18 05:20 Blood leukocytes automated count (number/volume) 8.3 10*3/uL 4.3-11.0 Blood erythrocytes automated count (number/volume) 4.23 10*6/uL 4.35-5.85 Venous blood hemoglobin measurement (mass/volume) 12.3 g/dL 13.3-17.7 Blood hematocrit (volume fraction) 38 % 40-54 Automated erythrocyte mean corpuscular volume 89 [ foz_us] 80-99 Automated erythrocyte mean corpuscular h emoglobin (mass per erythrocyte) 29 pg 25-34 Automated erythrocyte mean corpuscular h emoglobin concentration measurement (mass/volume) 33 g/dL 32-36 Automated erythrocyte distribution width ratio 15. 2 % 10.0- 14.5 Automated blood platelet count (count/volume) 258 10*3/uL [...] 5-14 Serum or plasma urea nitrogen measurement (mass/volume ) 13 mg/dL 7-18 Serum or plasma creatinine measurement (mass/volume) 0.72 mg/dL 0.60-1.30 Serum or plasma urea nitrogen/creatinine mass ratio 18 NRG Serum or plasma creatinine measurement w ith calculation of estimated glomerular filtration rate > NRG Serum or plasma glucose measurement (mass/volume) 94 mg/dL 70-105 Serum or plasma calcium measurement (mass/volume) 9.1 mg/dL 8.5-10.1 Serum or plasma total bilirubin measurement (mass/volu me) 0.4 mg/dL 0.1-1.0 Serum or plasma alkaline phosphatase esme surement (enzymatic activity/volume) 69 U/L 40-136 Serum or plasma aspartate aminotransfera se measurement (enzymatic activity/volume) 27 U/L 5-34 Serum or plasma alanine aminotransferase measurement (enzymatic activity/volume) 23 U/L 0-55 Serum or plasma protein measurement (mass/volume) 6.9 g/dL 6.4-8.2 Serum or plasma albumin measurement (mass/volume) 3.2 g/dL 3.2-4.5 CALCIUM CORRECTED 9.7 mg/dL 8.5-10.1 CMP - 12/01/18 12:00 GLUCOSE 96 mg/dL 65-99 UREA NITROGEN (BUN) 9 mg/dL 7-25 CREATININE 0.67 mg/dL 0.70-1.33 eGFR NON-AFR. SERBIAN 106 mL/min/1.73m2 > OR = 60 eGFR 123 mL/min/1.73m2 > OR = 60 BUN/CREATININE RATIO 13 (calc) 6-22 SODIUM 133 mmol/L 135-146 POTASSIUM 4.4 mmol/L 3.5-5.3 CHLORIDE 98 mmol/L 98-110 CARBON DIOXIDE 28 mmol/L 20-32 CALCIUM 9.0 mg/dL 8.6-10.3 PROTEIN, TOTAL 7.0 g/dL 6.1-8.1 ALBUMIN 3.5 g/dL 3.6-5.1 GLOBULIN 3.5 g/dL (calc) 1.9-3.7 ALBUMIN/GLOBULIN RATIO 1.0 (calc) 1.0-2. 5 BILIRUBIN, TOTAL 0.5 mg/dL 0.2-1.2 ALKALINE PHOSPHATASE 80 U/L 40-115 AST 23 U/L 10-35 ALT 14 U/L 9-46 CBC w/MANUAL DIFF - 12/01/18 12:00 WHITE BLOOD CELL COUNT 7.6 Thousand/uL 3 .8-10.8 RED BLOOD CELL COUNT 4.55 Million/uL 4.2 0-5.80 HEMOGLOBIN 13.0 g/dL 13.2-17.1 HEMATOCRIT 40.3 % 38.5-50.0 MCV 88.6 fL 80.0-100.0 MCH 28.6 pg 27.0-33.0 MCHC 32.3 g/dL 32.0-36.0 RDW 15.4 % 11.0-15.0 PLATELET COUNT 217 Thousand/uL 140-400 MPV 9.7 fL 7.5-12.5 DIFFERENTIAL, MANUAL - 12/01/18 12:00 ABSOLUTE NEUTROPHILS 4780 cells/uL 1500- 7800 ABSOLUTE MONOCYTES 1254 cells/uL 200-950 ABSOLUTE EOSINOPHILS 76 cells/uL 15-500 ABSOLUTE BASOPHILS 0 cells/uL 0-200 NEUTROPHILS 62.9 % NRG LYMPHOCYTES 15.5 % NRG MONOCYTES 16.5 % NRG EOSINOPHILS 1.0 % NRG BASOPHILS 0 % NRG ABSOLUTE BAND NEUTROPHILS 152 cells/uL 0 -750 ABSOLUTE METAMYELOCYTES 160 cells/uL ABSOLUTE LYMPHOCYTES 1178 cells/uL 850-3 900 BAND NEUTROPHILS 2.0 % NRG METAMYELOCYTES 2.1 % NRG PLATELET ESTIMATION ADEQUATE ADEQUATE CBC MORPHOLOGY NORMAL BNP - 12/01/18 12:00 B TYPE NATRIURETIC PEPTIDE (BNP) 72 pg/mL <100 PDM - 09 PANEL (PROFILE 1) - 12/29/18 09 :16 Prescribed Drug 1 Oxycodone NRG Creatinine 30.2 mg/dL > or = 20.0 pH 6.84 4.5 - 9.0 Oxidant NEGATIVE mcg/mL <200 Amphetamines NEGATIVE ng/mL <500 medMATCH Amphetamines CONSISTENT NRG Benzodiazepines NEGATIVE ng/mL <100 medMATCH Benzodiazepines CONSISTENT NRG Marijuana Metabolite NEGATIVE ng/mL <20 medMATCH Marijuana Metab CONSISTENT NRG Cocaine Metabolite NEGATIVE ng/mL <150 medMATCH Cocaine Metab CONSISTENT NRG Opiates NEGATIVE ng/mL <100 medMATCH Opiates CONSISTENT NRG Oxycodone POSITIVE ng/mL <100 COMMENT NRG Noroxycodone 89 ng/mL <50 medMATCH Noroxycodone CONSISTENT NRG Oxycodone NEGATIVE ng/mL <50 medMATCH Oxycodone CONSISTENT NRG Oxymorphone 146 ng/mL <50 medMATCH Oxymorphone CONSISTENT NRG Barbiturates NEGATIVE ng/mL <300 medMATCH Barbiturates CONSISTENT NRG Methadone Metabolite NEGATIVE ng/mL <100 medMATCH Methadone Metab CONSISTENT NRG Phencyclidine NEGATIVE ng/mL <25 medMATCH Phencyclidine CONSISTENT NRG ANTINUCLEAR ANTIBODIES TITER AND PATTE RN - 01/12/19 12:25 SANDRA PATTERN HOMOGENEOUS NRG SANDRA TITER 1:80 titer NRG CMP - 11/01/19 07:58 GLUCOSE 96 mg/dL 65-99 UREA NITROGEN (BUN) 6 mg/dL 7-25 CREATININE 0.59 mg/dL 0.70-1.33 eGFR NON-AFR. SERBIAN 111 mL/min/1.73m2 > OR = 60 eGFR 128 mL/min/1.73m2 > OR = 60 BUN/CREATININE RATIO 10 (calc) 6-22 SODIUM 135 mmol/L 135-146 POTASSIUM 3.2 mmol/L 3.5-5.3 CHLORIDE 101 mmol/L 98-110 CARBON DIOXIDE 30 mmol/L 20-32 CALCIUM 8.0 mg/dL 8.6-10.3 PROTEIN, TOTAL 7.2 g/dL 6.1-8.1 ALBUMIN 2.2 g/dL 3.6-5.1 GLOBULIN 5.0 g/dL (calc) 1.9-3.7 ALBUMIN/GLOBULIN RATIO 0.4 (calc) 1.0-2. 5 BILIRUBIN, TOTAL 1.3 mg/dL 0.2-1.2 ALKALINE PHOSPHATASE 211 U/L 35-144 AST 104 U/L 10-35 ALT 26 U/L 9-46 BNP - 11/01/19 07:58 B TYPE NATRIURETIC PEPTIDE (BNP) 220 pg/mL <100 Complete blood count (CBC) with automate d white blood cell (WBC) differential - 11/30/19 10:30 Blood leukocytes automated count (number/volume) 4.7 10*3/uL 4.3-11.0 Blood erythrocytes automated count (number/volume) 3.45 10*6/uL 4.35-5.85 Venous blood hemoglobin measurement (mass/volume) 10.8 g/dL 13.3-17.7 Blood hematocrit (volume fraction) 32 % 40-54 Automated erythrocyte mean corpuscular volume 93 [ foz_us] 80-99 Automated erythrocyte mean corpuscular h emoglobin (mass per erythrocyte) 31 pg 25-34 Automated erythrocyte mean corpuscular h emoglobin concentration measurement (mass/volume) 34 g/dL 32-36 Automated erythrocyte distribution width ratio 22. 6 % 10.0- 14.5 Automated blood platelet count (count/volume) 96 1 0*3/uL 130-400 Automated blood platelet mean volume measurement 10.1 [foz_us] 7.4-10.4 Automated blood neutrophils/100 leukocytes 45 % 42-75 Automated blood lymphocytes/100 leukocytes 31 % 12-44 Blood monocytes/100 leukocytes 17 % 0-12 Automated blood eosinophils/100 leukocytes 7 % 0-10 Automated blood basophils/100 leukocytes 0 % 0-10 Blood neutrophils automated count (number/volume) 2.1 10*3 1.8-7.8 Blood lymphocytes automated count (number/volume) 1.5 10*3 1.0-4.0 Blood monocytes automated count (number/volume) 0. 8 10*3 0.0-1.0 Automated eosinophil count 0.3 10*3/uL 0 .0-0.3 Automated blood basophil count (count/volume) 0.0 10*3/uL 0.0-0.1 Comprehensive metabolic panel - 11/30/19 10:30 Serum or plasma sodium measurement (moles/volume) 131 mmol/L 135-145 Serum or plasma potassium measurement (moles/volume) 3.2 mmol/L 3.6-5.0 Serum or plasma chloride measurement (moles/volume) 96 mmol/L 98-107 Carbon dioxide 28 mmol/L 21-32 Serum or plasma anion gap determination (moles/volume) 7 mmol/L 5-14 Serum or plasma urea nitrogen measurement (mass/volume ) 5 mg/dL 7-18 Serum or plasma creatinine measurement (mass/volume) 0.73 mg/dL 0.60-1.30 Serum or plasma urea nitrogen/creatinine mass ratio 7 NRG Serum or plasma creatinine measurement w ith calculation of estimated glomerular filtration rate > NRG Serum or plasma glucose measurement (mass/volume) 94 mg/dL 70-105 Serum or plasma calcium measurement (mass/volume) 7.6 mg/dL 8.5-10.1 Serum or plasma total bilirubin measurement (mass/volu me) 2.2 mg/dL 0.1-1.0 Serum or plasma alkaline phosphatase esme surement (enzymatic activity/volume) 178 U/L 40-136 Serum or plasma aspartate aminotransfera se measurement (enzymatic activity/volume) 132 U/L 5-34 Serum or plasma alanine aminotransferase measurement (enzymatic activity/volume) 24 U/L 0-55 Serum or plasma protein measurement (mass/volume) 8.2 g/dL 6.4-8.2 Serum or plasma albumin measurement (mass/volume) 2.1 g/dL 3.2-4.5 CALCIUM CORRECTED 9.1 mg/dL 8.5-10.1 Magnesium - 11/30/19 10:30 Magnesium 1.9 mg/dL 1.6-2.4 PT panel in platelet poor plasma by coag ulation assay - 11/30/19 10:30 Prothrombin time (PT) in platelet poor plasma by coagu lation assay 18.4 s 12.2-14.7 INR in platelet poor plasma or blood by coagulation as say 1.5 0.8-1.4 Activated partial thromboplastin time (a PTT) in platelet poor plasma bycoagulation assay - 11/30/19 10:30 Activated partial thromboplastin time (a PTT) in platelet poor plasma bycoagulation assay 38 s 24-35 Blood lactic acid measurement (moles/vol ume) - 11/30/19 10:30 Blood lactic acid measurement (moles/volume) 1.63 mmol/L 0.50-2.00 Serum or plasma troponin i.cardiac measu rement (mass/volume) - 11/30/19 10:30 Serum or plasma troponin i.cardiac measurement (mass/v olume) 0.042 ng/mL <0.028 Ammonia - 11/30/19 10:30 Ammonia 78 umol/L 11-32 Serum or plasma thyroxine (T4) free celina urement (mass/volume) - 11/30/19 10:30 Serum or plasma thyroxine (T4) free measurement (mass/ volume) 0.87 ng/dL 0.70-1.48 Serum or plasma lithium measurement (mol es/volume) - 11/30/19 10:30 BNP PT 162.8 pg/mL <100.0 Serum or plasma thyrotropin measurement by detection limit <=0.05 miu/l (units/volume) - 11/30/19 10:30 Serum or plasma thyrotropin measurement by detection limit <=0.05 miu/l (units/volume) 6.45 u[iU]/mL 0.35-4.94 Serum or plasma C reactive protein measu rement (mass/volume) - 11/30/19 10:30 Serum or plasma C reactive protein measurement (mass/v olume) 4.70 mg/dL 0.00-0.50 Bacterial blood culture - 11/30/19 10:30 Bacterial blood culture NG NRG Bacterial blood culture - 11/30/19 10:57 Bacterial blood culture NG NRG Complete urinalysis with reflex to cultu re - 11/30/19 12:47 Urine color determination YELLOW NRG Urine clarity determination CLEAR NR G Urine pH measurement by test strip 7.0 5-9 Specific gravity of urine by test strip 1.010 1.016-1.022 Urine protein assay by test strip, semi-quantitative NEGATIVE NEGATIVE Urine glucose detection by automated test strip NE GATIVE NEGATIVE Erythrocytes detection in urine sediment by light micr oscopy NEGATIVE NEGATIVE Urine ketones detection by automated test strip NE GATIVE NEGATIVE Urine nitrite detection by test strip NEGATIVE NEGATIVE Urine total bilirubin detection by test strip NEGA TIVE NEGATIVE Urine urobilinogen measurement by automated test strip (mass/volume) 4.0 mg/dL < = 1.0 Urine leukocyte esterase detection by dipstick NEG ATIVE NEGATIVE Automated urine sediment erythrocyte cou nt by microscopy (number/high power field) [HPF] NRG Automated urine sediment leukocyte count by microscopy (number/high power field) NONE NRG Bacteria detection in urine sediment by light microsco py TRACE NRG Squamous epithelial cells detection in u rine sediment by light microscopy 0-2 NRG Crystals detection in urine sediment by light microsco py NONE NRG Casts detection in urine sediment by light microscopy NONE NRG Mucus detection in urine sediment by light microscopy NEGATIVE NRG Complete urinalysis with reflex to culture CULTURE PENDING NRG Bacterial urine culture - 11/30/19 12:47 Bacterial urine culture NG NRG Complete blood count (CBC) with automate d white blood cell (WBC) differential - 12/01/19 05:50 Blood leukocytes automated count (number/volume) 4.1 10*3/uL 4.3-11.0 Blood erythrocytes automated count (number/volume) 3.17 10*6/uL 4.35-5.85 Venous blood hemoglobin measurement (mass/volume) 10.1 g/dL 13.3-17.7 Blood hematocrit (volume fraction) 30 % 40-54 Automated erythrocyte mean corpuscular volume 95 [ foz_us] 80-99 Automated erythrocyte mean corpuscular h emoglobin (mass per erythrocyte) 32 pg 25-34 Automated erythrocyte mean corpuscular h emoglobin concentration measurement (mass/volume) 34 g/dL 32-36 Automated erythrocyte distribution width ratio 23. 2 % 10.0- 14.5 Automated blood platelet count (count/volume) 87 1 0*3/uL 130-400 Automated blood platelet mean volume measurement 9.9 [foz_us] 7.4-10.4 Automated blood neutrophils/100 leukocytes 42 % 42-75 Automated blood lymphocytes/100 leukocytes 36 % 12-44 Blood monocytes/100 leukocytes 16 % 0-12 Automated blood eosinophils/100 leukocytes 6 % 0-10 Automated blood basophils/100 leukocytes 1 % 0-10 Blood neutrophils automated count (number/volume) 1.7 10*3 1.8-7.8 Blood lymphocytes automated count (number/volume) 1.5 10*3 1.0-4.0 Blood monocytes automated count (number/volume) 0. 6 10*3 0.0-1.0 Automated eosinophil count 0.3 10*3/uL 0 .0-0.3 Automated blood basophil count (count/volume) 0.0 10*3/uL 0.0-0.1 Comprehensive metabolic panel - 12/01/19 05:50 Serum or plasma sodium measurement (moles/volume) 135 mmol/L 135-145 Serum or plasma potassium measurement (moles/volume) 3.3 mmol/L 3.6-5.0 Serum or plasma chloride measurement (moles/volume) 100 mmol/L 98-107 Carbon dioxide 26 mmol/L 21-32 Serum or plasma anion gap determination (moles/volume) 9 mmol/L 5-14 Serum or plasma urea nitrogen measurement (mass/volume ) 4 mg/dL 7-18 Serum or plasma creatinine measurement (mass/volume) 0.73 mg/dL 0.60-1.30 Serum or plasma urea nitrogen/creatinine mass ratio 5 NRG Serum or plasma creatinine measurement w ith calculation of estimated glomerular filtration rate > NRG Serum or plasma glucose measurement (mass/volume) 100 mg/dL 70-105 Serum or plasma calcium measurement (mass/volume) 7.4 mg/dL 8.5-10.1 Serum or plasma total bilirubin measurement (mass/volu me) 1.7 mg/dL 0.1-1.0 Serum or plasma alkaline phosphatase esme surement (enzymatic activity/volume) 166 U/L 40-136 Serum or plasma aspartate aminotransfera se measurement (enzymatic activity/volume) 134 U/L 5-34 Serum or plasma alanine aminotransferase measurement (enzymatic activity/volume) 22 U/L 0-55 Serum or plasma protein measurement (mass/volume) 7.4 g/dL 6.4-8.2 Serum or plasma albumin measurement (mass/volume) 1.9 g/dL 3.2-4.5 CALCIUM CORRECTED 9.1 mg/dL 8.5-10.1 Magnesium - 12/01/19 05:50 Magnesium 1.7 mg/dL 1.6-2.4 Lipid 1996 panel - 12/01/19 05:50 Serum or plasma triglyceride measurement (mass/volume) 99 mg/dL <150 Serum or plasma cholesterol measurement (mass/volume) 96 mg/dL < 200 Serum or plasma cholesterol in HDL measurement (mass/v olume) < mg/dL 40-60 Cholesterol in LDL [mass/volume] in serum or plasma by direct assay 73 mg/dL 1-129 Serum or plasma cholesterol in VLDL measurement (mass/ volume) 20 mg/dL 5-40 Whole blood basic metabolic panel - 11/17 11/06 21:55 Serum or plasma sodium measurement (moles/volume) 133 mmol/L 135-145 Serum or plasma potassium measurement (moles/volume) 3.7 mmol/L 3.6-5.0 Serum or plasma chloride measurement (moles/volume) 99 mmol/L 98-107 Carbon dioxide 26 mmol/L 21-32 Serum or plasma anion gap determination (moles/volume) 8 mmol/L 5-14 Serum or plasma urea nitrogen measurement (mass/volume ) 4 mg/dL 7-18 Serum or plasma creatinine measurement (mass/volume) 0.80 mg/dL 0.60-1.30 Serum or plasma urea nitrogen/creatinine mass ratio 5 NRG Serum or plasma creatinine measurement w ith calculation of estimated glomerular filtration rate > NRG Serum or plasma glucose measurement (mass/volume) 104 mg/dL 70-105 Serum or plasma calcium measurement (mass/volume) 7.5 mg/dL 8.5-10.1 Complete blood count (CBC) with automate d white blood cell (WBC) differential - 12/02/19 05:55 Blood leukocytes automated count (number/volume) 4.0 10*3/uL 4.3-11.0 Blood erythrocytes automated count (number/volume) 3.33 10*6/uL 4.35-5.85 Venous blood hemoglobin measurement (mass/volume) 10.4 g/dL 13.3-17.7 Blood hematocrit (volume fraction) 32 % 40-54 Automated erythrocyte mean corpuscular volume 95 [ foz_us] 80-99 Automated erythrocyte mean corpuscular h emoglobin (mass per erythrocyte) 31 pg 25-34 Automated erythrocyte mean corpuscular h emoglobin concentration measurement (mass/volume) 33 g/dL 32-36 Automated erythrocyte distribution width ratio 23. 7 % 10.0- 14.5 Automated blood platelet count (count/volume) 95 1 0*3/uL 130-400 Automated blood platelet mean volume measurement 10.1 [foz_us] 7.4-10.4 Automated blood neutrophils/100 leukocytes 37 % 42-75 Automated blood lymphocytes/100 leukocytes 39 % 12-44 Blood monocytes/100 leukocytes 17 % 0-12 Automated blood eosinophils/100 leukocytes 7 % 0-10 Automated blood basophils/100 leukocytes 0 % 0-10 Blood neutrophils automated count (number/volume) 1.5 10*3 1.8-7.8 Blood lymphocytes automated count (number/volume) 1.6 10*3 1.0-4.0 Blood monocytes automated count (number/volume) 0. 7 10*3 0.0-1.0 Automated eosinophil count 0.3 10*3/uL 0 .0-0.3 Automated blood basophil count (count/volume) 0.0 10*3/uL 0.0-0.1 Whole blood basic metabolic panel - 11/17 12/06 05:55 Serum or plasma sodium measurement (moles/volume) 134 mmol/L 135-145 Serum or plasma potassium measurement (moles/volume) 3.6 mmol/L 3.6-5.0 Serum or plasma chloride measurement (moles/volume) 101 mmol/L 98-107 Carbon dioxide 24 mmol/L 21-32 Serum or plasma anion gap determination (moles/volume) 9 mmol/L 5-14 Serum or plasma urea nitrogen measurement (mass/volume ) 4 mg/dL 7-18 Serum or plasma creatinine measurement (mass/volume) 0.71 mg/dL 0.60-1.30 Serum or plasma urea nitrogen/creatinine mass ratio 6 NRG Serum or plasma creatinine measurement w ith calculation of estimated glomerular filtration rate > NRG Serum or plasma glucose measurement (mass/volume) 98 mg/dL 70-105 Serum or plasma calcium measurement (mass/volume) 7.3 mg/dL 8.5-10.1 Magnesium - 12/02/19 05:55 Magnesium 1.7 mg/dL 1.6-2.4 Acute hepatitis panel - 12/02/19 05:55 HEPATITIS A ANTIBODY IGM Non-Reactive N on-Reactive HEPATITIS B CORE JEAN-PIERRE IGM Non-Reactive N on-Reactive Confirmatory quantitative serum or plasm a hepatitis B virus surface antigen measurement Non-Reactive Non-Reactive Serum hepatitis C virus antibody detection Non-[place] ctive Non-Reactive Serum iron and total iron binding capaci ty panel - 12/02/19 05:55 TIBC 212 % 280-380 UIBC 168 % 55-450 Serum or plasma iron measurement (mass/volume) 44 % 40-180 Total iron binding capacity and transferrin saturation measurement 21 % 15-50 Serum or plasma ferritin measurement (mass/volume) 126.5 % 32.0-356.0 Complete blood count (CBC) with automate d white blood cell (WBC) differential - 12/03/19 04:56 Blood leukocytes automated count (number/volume) 4.1 10*3/uL 4.3-11.0 Blood erythrocytes automated count (number/volume) 3.26 10*6/uL 4.35-5.85 Venous blood hemoglobin measurement (mass/volume) 10.5 g/dL 13.3-17.7 Blood hematocrit (volume fraction) 31 % 40-54 Automated erythrocyte mean corpuscular volume 95 [ foz_us] 80-99 Automated erythrocyte mean corpuscular h emoglobin (mass per erythrocyte) 32 pg 25-34 Automated erythrocyte mean corpuscular h emoglobin concentration measurement (mass/volume) 34 g/dL 32-36 Automated erythrocyte distribution width ratio 23. 5 % 10.0- 14.5 Automated blood platelet count (count/volume) 96 1 0*3/uL 130-400 Automated blood platelet mean volume measurement 10.1 [foz_us] 7.4-10.4 Automated blood neutrophils/100 leukocytes 44 % 42-75 Automated blood lymphocytes/100 leukocytes 34 % 12-44 Blood monocytes/100 leukocytes 16 % 0-12 Automated blood eosinophils/100 leukocytes 7 % 0-10 Automated blood basophils/100 leukocytes 0 % 0-10 Blood neutrophils automated count (number/volume) 1.8 10*3 1.8-7.8 Blood lymphocytes automated count (number/volume) 1.4 10*3 1.0-4.0 Blood monocytes automated count (number/volume) 0. 6 10*3 0.0-1.0 Automated eosinophil count 0.3 10*3/uL 0 .0-0.3 Automated blood basophil count (count/volume) 0.0 10*3/uL 0.0-0.1 Whole blood basic metabolic panel - 11/17 01/06 04:56 Serum or plasma sodium measurement (moles/volume) 134 mmol/L 135-145 Serum or plasma potassium measurement (moles/volume) 3.5 mmol/L 3.6-5.0 Serum or plasma chloride measurement (moles/volume) 102 mmol/L 98-107 Carbon dioxide 24 mmol/L 21-32 Serum or plasma anion gap determination (moles/volume) 8 mmol/L 5-14 Serum or plasma urea nitrogen measurement (mass/volume ) 4 mg/dL 7-18 Serum or plasma creatinine measurement (mass/volume) 0.70 mg/dL 0.60-1.30 Serum or plasma urea nitrogen/creatinine mass ratio 6 NRG Serum or plasma creatinine measurement w ith calculation of estimated glomerular filtration rate > NRG Serum or plasma glucose measurement (mass/volume) 92 mg/dL 70-105 Serum or plasma calcium measurement (mass/volume) 7.5 mg/dL 8.5-10.1 PT/INR - 12/21/19 12:01 INR 1.3 NRG PT 13.4 sec 9.0-11.5 Encounters ACCT No. Visit Date/Time Discharge Status Pt. Type Provider Facility Loc./Unit Complaint [id number] 03/11/2017 18:09:00 Document Registration [id number] 12/21/2019 11:20:00 12/21/2019 23:59: 59 CLS Outpatient MARTI MORELOS, EDEN GENTILE [id number] 12/21/2019 11:20:00 Document Registration [id number] 11/01/2019 07:00:00 Document Registration [id number] 01/12/2019 11:20:00 Document Registration [id number] 12/29/2018 09:00:00 Document Registration [id number] 12/01/2018 10:40:00 Document Registration [id number] 10/13/2018 11:00:00 Document Registration [id number] 02/17/2018 12:40:00 Document Registration [id number] 03/09/2017 17:20:00 Document Registration [id number] 12/26/2019 08:34:00 09:48:00 DIS Outpatient NEW MORELOS, RAIN Sanders [facility] ER FOOT PAIN [id number] 11/30/2019 15:00:00 15:12:00 DIS Outpatient MARCE MORELOS, CHEY Tracy [facility] 4TH ACUTE HEART FAILURE [id number] 10/21/2018 11:49:00 11:05:00 DIS Inpatient MARTI MORELOS, EDEN Yarbrough [facility] 4TH FLUID OVERLOAD [id number] 08/31/2018 13:42:00 019 14:24:00 DIS Emergency STEFANMONICAASHER [facility] ER GENERAL JOINT PAIN [id number] 06/15/2018 10:18:00 018 13:50:00 DIS Emergency MAIKANGELA [employer] OVER[employer]UL [facility] ER HAND AND FEET PAIN [id number] 05/12/2018 10:54:00 12:56:00 DIS Emergency WILLIAM ALLEN APRN [facility] ER ARTHRITIS [id number] 03/31/2018 09:50:00 018 23:59:59 CLS Outpatient KOBE GARZA DO [facility] SDC MASS RIGHT CHEEK [id number] 03/29/2018 05:28:00 018 12:41:00 DIS Outpatient KOBE GARZA DO [facility] PREOP MASS RIGHT CHEEK [id number] 02/07/2017 20:35:00 017 22:22:00 DIS Emergency WILLIAM ALLEN APRN [facility] ER GENERAL SWELLING [id number] 03/02/2016 19:13:00 016 19:24:00 DIS Emergency GABRIELLA FIELDS DO [facility] ER R EYE LAC [id number] 01/12/2015 16:07:00 015 17:03:00 DIS Emergency JANELL STINSON [facility] ER RASH [id number] 02/22/2014 12:14:00 014 14:20:00 DIS Emergency JANELL STINSON [facility] ER BACK PAIN [id number] 11/10/2018 04:11:00 Document Registration [id number] 11/10/2018 04:11:00 Document Registration [id number] 11/10/2018 04:11:00 Document Registration [id number] 12/03/2011 10:19:00 12/03/2011 23:59: 59 CLS Outpatient GABRIELLA MAHAJAN APRN
[2020-01-18 10:00] VITALS: BP 161/105
--- NOTE | 2020-01-18 10:03 | ED General ---
General Stated Complaint: RECTAL BLEEDING;SOA Source of Information: Patient History of Present Illness Date Seen by Provider: Jan 18, 2020 Time Seen by Provider: 10:02 Initial Comments 59-year-old male who presents because he wants pain medication. Patient is a chronic pain patient that overused his home narcotics and cannot infiltrate days. Patient's angry because he "hurts" patient wants to be placed on hospice because he hurts. Patient states his pain medication needs to be increased in his doctor won't do it. He states that he cannot feel his prescription for 8 days. Patient states he only wants pain medication. When I visit with him about all his other issues are all chronic. Patient reports exposed to be on a CPAP machine that was from the [employer] for 1. Patient is very angry that no acute issues upon presentation besides wanting pain medication and does not want any further workup at this time patient reports she hurts all over. Patient states he wants to be put on hospice because he wants better and stronger pain medication. Allergies and Home Medications Allergies Coded Allergies: Leticia Known Allergies (Unverified Allergy, Mild, 03/29/18) Home Medications Aspirin 81 Mg Tab.chew, 81 MG PO DAILY Prescribed by: DASHA BURCH on 12/03/19 1355 Furosemide 40 Mg Tablet, 40 MG PO DAILY Prescribed by: DASHA BURCH on 12/03/19 1355 Oxycodone HCl 5 Mg Tablet, 5 MG PO QID PRN for PAIN-SEVERE (8-10) Prescribed by: DASHA BURCH on 12/03/19 1356 Oxycodone HCl 5 Mg Tablet, 5 MG PO Q6H PRN for PAIN-MODERATE (5-7) Prescribed by: RAIN WOLFF on 12/26/19 0943 Potassium Chloride 20 Meq Tablet.er, 20 MEQ PO DAILY Prescribed by: DASHA BURCH on 12/03/19 1355 Patient Home Medication List Home Medication List Reviewed: Yes Review of Systems Review of Systems Constitutional: no symptoms reported EENTM: no symptoms reported Respiratory: no symptoms reported Cardiovascular: no symptoms reported Gastrointestinal: see HPI Musculoskeletal: see HPI Past Zctljmy-Gbyqwu-Sajazq Hx Patient Social History Alcohol Beverage of Choice: Beer, Vodka Drug of Choice: THC Type Used: Cigars Recent Foreign Travel: No Contact w/Someone Who Travel: No Recent Hopitalizations: No Immunizations Up To Date Date of Pneumonia Vaccine: May 04, 2017 Date of Influenza Vaccine: May 04, 2017 Seasonal Allergies Seasonal Allergies: No Past Medical History Surgeries: No Respiratory: Yes (COUGH) COPD Cardiac: Yes Hypertension Neurological: No Reproductive Disorders: No Sexually Transmitted Disease: No HIV/AIDS: No Genitourinary: No Gastrointestinal: Yes Liver Disease/Jaundice Musculoskeletal: Yes Arthritis, Chronic Back Pain Endocrine: No HEENT: No Loss of Vision: Bilateral Hearing Impairment: Denies Cancer: No Psychosocial: No Integumentary: No Blood Disorders: No Adverse Reaction/Blood Tranf: No (N/A) Family Medical History Abdominal aortic aneurysm Alcoholism Arthritis Cardiovascular disease Completed stroke Diabetes mellitus Drug abuse Gastroenteritis Hypertension Myocardial infarction Psychosocial problem Physical Exam Vital Signs Vital Signs - First Documented 01/18/20 10:00 Temp 37.0 Pulse 82 Resp 20 B/P (MAP) 161/105 (123) Pulse Ox 97 O2 Delivery Room Air Capillary Refill : Height, Weight, BMI Height: 5'8.00" Weight: 260lbs. 0.0oz. 117.680652ov; 41.00 BMI Method:Stated General Appearance: Obese, Other (unkept) Respiratory: Chest Non Tender, Lungs Clear Cardiovascular: Regular Rate, Rhythm Gastrointestinal: Non Tender, Soft Rectal: Deferred Extremity: Normal Capillary Refill, Other (2+ pedal edema) Neurologic/Psychiatric: Alert, Oriented x3, No Motor/Sensory Deficits, cigarette tipper II- XII Norm as Tested Skin: Normal Color, Warm/Dry Progress/Results/Core Measures Suspected Sepsis SIRS Temperature: Pulse: Respiratory Rate: Blood Pressure / Mean: Results/Orders My Orders Orders - JENSEN CHOUDHARY DO Ketamine Syringe (Ed Only) (Ketamine Syr (01/18/20 10:15) Medications Given in ED Current Medications Medications Dose Ordered Sig/[place] Route Start Time Stop Time Status Last Admin Dose Admin Ketamine HCl 25 mg ONCE ONCE IV 01/18/20 10:15 01/18/20 10:16 DC 01/18/20 10:24 25 MG Vital Signs/I&O 01/18/20 10:00 Temp 37.0 Pulse 82 Resp 20 B/P (MAP) 161/105 (123) Pulse Ox 97 O2 Delivery Room Air Capillary Refill : Departure Impression Primary Impression: Chronic pain Qualified Codes: G89.29 - Other chronic pain Additional Impressions: Drug-seeking behavior Prescription drug abuse Disposition: HOME, SELF-CARE Condition: Stable Departure-Patient Inst. Referrals: EDEN HOWELL MD (PCP/Family) Primary Care Physician Patient Instructions: CHRONIC PAIN, Opioid Use Disorder, Prescription Drug Abuse (DC) Add. Discharge Instructions: If you feel that you need adjustments to your chronic pain medication he will need to follow-up with her primary care provider as we do not provide that the emergency room Emergency department focuses on treating and ruling out life-threatening diseases. Whenever possible, a diagnosis is given. However, most patients are given an impression based on their history, physical exam, and workup during your brief time in the ER. Information about probable diagnosis and other educational material has been provided. Please take the time to read and understand this information. It is very important that you follow up with a physician as discussed during the visit today. Failure to adhere to your follow-up instructions may lead to severe disability, injury, or so please make sure to keep your appointments or obtain one as requested. Please keep in mind the emergency department is not designed to your primary care or "family doctor" and nonurgent issues are best evaluated by an outpatient physician JENSEN CHOUDHARY DO Jan 18, 2020 10:02
[2020-01-18] MEDS ORDERED: KETAMINE/NaCl 50 MG/5 ML SYRINGE (ED ONLY) IV ONE (10:15)
--- NOTE | 2020-01-18 10:25 | NUR ---
PT STATES HE NEEDS TO GO TO [place] OR [place] TO GET BETTER PAIN MEDS.
== END 2020-01-18 11:22 | disposition home or self-care (01) ==
LOC: EDUNIT# 09:14 → ER 09:16
DX: G89.29 Other chronic pain (principal); F11.10 Opioid abuse, uncomplicated; I10 Essential (primary) hypertension; Z76.5 Malingerer [conscious simulation]; Z79.82 Long term (current) use of aspirin; Z82.49 Family history of ischemic heart disease and other diseases of the circulatory system; Z79.891 Long term (current) use of opiate analgesic
CPT/HCPCS: 96374

== ENCOUNTER 2020-02-20 16:16 | Inpatient (IN) | payer MEDICAID ==
[~2020-02-20] VITALS: Ht 172.7 cm; Wt 113.9 kg
--- NOTE | 2020-02-20 16:21 | ED Cough/URI ---
General Stated Complaint: COUGHING UP BLOOD/ABD PAIN Source: patient Exam Limitations: no limitations History of Present Illness Date Seen by Provider: Feb 20, 2020 Time Seen by Provider: 16:21 Initial Comments 59-year-old male who presents with "crappy" by red blood. He were reports that it started early this morning last night, that is been present throughout the day. He reports his been "5 gallons" he has some diffuse abdominal pain. Patient also has some mild shortness of breath and is wheezing and is supposed a breathing treatment and has not today. He denies any chest pain. He admits to drinking at least 6 beers a day if not more. He denies any fevers, chills, vomiting. He does have some mild nausea. Allergies and Home Medications Allergies Coded Allergies: Leticia Known Allergies (Unverified Allergy, Mild, 03/29/18) Home Medications Aspirin 81 Mg Tab.chew, 81 MG PO DAILY Prescribed by: DASHA BURCH on 12/03/19 1355 Furosemide 40 Mg Tablet, 40 MG PO DAILY Prescribed by: DASHA BURCH on 12/03/19 1355 Oxycodone HCl 5 Mg Tablet, 5 MG PO QID PRN for PAIN-SEVERE (8-10) Prescribed by: DASHA BURCH on 12/03/19 1356 Oxycodone HCl 5 Mg Tablet, 5 MG PO Q6H PRN for PAIN-MODERATE (5-7) Prescribed by: RAIN WOFLF on 12/26/19 0943 Potassium Chloride 20 Meq Tablet.er, 20 MEQ PO DAILY Prescribed by: DASHA BURCH on 12/03/19 1355 Patient Home Medication List Home Medication List Reviewed: Yes Review of Systems Review of Systems Constitutional: No chills, No fever Respiratory: short of breath, wheezing Cardiovascular: No chest pain; edema (bilateral lower legs); No palpitations Gastrointestinal: abdominal pain, other (bright red blood per rectum) Genitourinary: no symptoms reported Musculoskeletal: no symptoms reported Psychiatric/Neurological: No Symptoms Reported Hematologic/Lymphatic: No Symptoms Reported Immunological/Allergic: no symptoms reported Past Xecklvn-Uqssbf-Vvfkaj Hx Past Med/Social Hx: Reviewed Nursing Past Med/Soc Hx Patient Social History Alcohol Beverage of Choice: Beer, Vodka Drug of Choice: THC Type Used: Cigars Recent Foreign Travel: No Contact w/Someone Who Travel: No Recent Hopitalizations: No Immunizations Up To Date Date of Pneumonia Vaccine: May 04, 2017 Date of Influenza Vaccine: May 04, 2017 Seasonal Allergies Seasonal Allergies: No Past Medical History Surgeries: No Respiratory: Yes (COUGH) COPD Cardiac: Yes Hypertension Neurological: No Reproductive Disorders: No Sexually Transmitted Disease: No HIV/AIDS: No Genitourinary: No Gastrointestinal: Yes Liver Disease/Jaundice Musculoskeletal: Yes Arthritis, Chronic Back Pain Endocrine: No HEENT: No Loss of Vision: Bilateral Hearing Impairment: Denies Cancer: No Psychosocial: No Integumentary: No Blood Disorders: No Adverse Reaction/Blood Tranf: No (N/A) Family Medical History Abdominal aortic aneurysm Alcoholism Arthritis Cardiovascular disease Completed stroke Diabetes mellitus Drug abuse Gastroenteritis Hypertension Myocardial infarction Psychosocial problem Physical Exam Vital Signs - First Documented 02/20/20 02/20/20 16:20 16:41 Temp 36.8 Pulse 120 Resp 18 B/P (MAP) 130/79 (96) Pulse Ox 98 O2 Delivery Room Air Capillary Refill : Height: 5'8.00" Weight: 260lbs. 0.0oz. 117.197686bd; 41.00 BMI Method:Stated General Appearance: WD/WN, no apparent distress Eyes: Bilateral Eye Normal Inspection HEENT: PERRL/EOMI Neck: full range of motion, supple Respiratory: no respiratory distress, no accessory muscle use, decreased breath sounds (diffuse), wheezing (mild diffuse) Cardiovascular: regular rate, rhythm, other (2+ edema bilateral lower legs) Gastrointestinal: soft, tenderness (diffuse) Extremities: pedal edema Neurologic/Psychiatric: alert, normal mood/affect, oriented x 3 Skin: other (chronic bilateral lower venous stasis changes) Lymphatic: no adenopathy Progress/Results/Core Measures Suspected Sepsis SIRS Temperature: Pulse: Respiratory Rate: Laboratory Tests 02/20/20 16:30: White Blood Count 5.2 Blood Pressure / Mean: Laboratory Tests 02/20/20 16:30: Creatinine 0.73, INR Comment 1.7H, Platelet Count 84L, Total Bilirubin 2.4H Results/Orders Lab Results Laboratory Tests Test 02/20/20 16:30 Range/Units White Blood Count 5.2 4.3-11.0 10^3/uL Red Blood Count 3.65 L 4.35-5.85 10^6/uL Hemoglobin 11.1 L 13.3-17.7 G/DL Hematocrit 32 L 40-54 % Mean Corpuscular Volume 87 80-99 FL Mean Corpuscular Hemoglobin 30 25-34 PG Mean Corpuscular Hemoglobin Concent 35 32-36 G/DL Red Cell Distribution Width 18.7 H 10.0-14.5 % Platelet Count 84 L 130-400 10^3/uL Mean Platelet Volume 10.5 H 7.4-10.4 FL Neutrophils (%) (Auto) 56 42-75 % Lymphocytes (%) (Auto) 31 12-44 % Monocytes (%) (Auto) 12 0-12 % Eosinophils (%) (Auto) 1 0-10 % Basophils (%) (Auto) 0 0-10 % Neutrophils # (Auto) 2.9 1.8-7.8 X 10^3 Lymphocytes # (Auto) 1.6 1.0-4.0 X 10^3 Monocytes # (Auto) 0.6 0.0-1.0 X 10^3 Eosinophils # (Auto) 0.0 0.0-0.3 10^3/uL Basophils # (Auto) 0.0 0.0-0.1 10^3/uL Prothrombin Time 20.5 H 12.2-14.7 SEC INR Comment 1.7 H 0.8-1.4 Activated Partial Thromboplast Time 29 24-35 SEC Sodium Level 135 135-145 MMOL/L Potassium Level 3.3 L 3.6-5.0 MMOL/L Chloride Level 97 L 98-107 MMOL/L Carbon Dioxide Level 25 21-32 MMOL/L Anion Gap 13 5-14 MMOL/L Blood Urea Nitrogen 8 7-18 MG/DL Creatinine 0.73 0.60-1.30 MG/DL Estimat Glomerular Filtration Rate > 60 BUN/Creatinine Ratio 11 Glucose Level 93 70-105 MG/DL Calcium Level 8.1 L 8.5-10.1 MG/DL Corrected Calcium 9.4 8.5-10.1 MG/DL Total Bilirubin 2.4 H 0.1-1.0 MG/DL Aspartate Amino Transf (AST/SGOT) 160 H 5-34 U/L Alanine Aminotransferase (ALT/SGPT) 37 0-55 U/L Alkaline Phosphatase 170 H 40-136 U/L Total Protein 9.0 H 6.4-8.2 GM/DL Albumin 2.4 L 3.2-4.5 GM/DL Lipase 38 8-78 U/L Serum Alcohol < 10 <10 MG/DL My Orders Orders - JENSEN CHOUDHARY L DO Alcohol (02/20/20 16:25) Cbc With Automated Diff (02/20/20 16:25) Comprehensive Metabolic Panel (02/20/20 16:25) Lipase (02/20/20 16:25) Protime With Inr (02/20/20 16:25) Partial Thromboplastin Time (02/20/20 16:25) Type And Screen (02/20/20 16:25) Ed Iv/Invasive Line Start (02/20/20 16:25) Pantoprazole Injection (Protonix Injecti (02/20/20 16:30) Albuterol/Ipra Inhalation Soln (Duoneb I (02/20/20 16:45) Svn Small Volume Nebulizer (02/20/20 16:32) Ekg Tracing (02/20/20 16:35) Monitor-Rhythm Ecg Trace Only (02/20/20 16:35) Ct Abdomen/Pelvis W (02/20/20 17:16) Iohexol Injection (Omnipaque 350 Mg/Ml 1 (02/20/20 17:30) Received Contrast (Hold Metformin- Contr (02/20/20 17:30) Ns (Ivpb) (Sodium Chloride 0.9% Ivpb Bag (02/20/20 17:30) Medications Given in ED Current Medications Medications Dose Ordered Sig/[place] Route Start Time Stop Time Status Last Admin Dose Admin Albuterol/ Ipratropium 3 ml ONCE ONCE INH 02/20/20 16:45 02/20/20 16:46 DC 02/20/20 16:41 3 ML Iohexol 100 ml ONCE ONCE IV 02/20/20 17:30 02/20/20 17:31 DC 02/20/20 17:40 100 ML Pantoprazole 80 mg ONCE ONCE IV 02/20/20 16:30 02/20/20 16:31 DC 02/20/20 16:36 80 MG Sodium Chloride 100 ml ONCE ONCE IV 02/20/20 17:30 02/20/20 17:31 DC 02/20/20 17:40 100 ML Vital Signs/I&O 02/20/20 02/20/20 16:20 16:41 Temp 36.8 Pulse 120 Resp 18 B/P (MAP) 130/79 (96) Pulse Ox 98 98 O2 Delivery Room Air Capillary Refill : Progress Note : Time: 18:18 Progress Note pt will be admitted to Dr Sethi, pt seen by Dr Merrill in the ER. pt will be scoped tomorrow Departure Communication (Admissions) Time/Spoke to Admitting Phy: 18:12 consult surgery Impression Primary Impression: Bright red blood per rectum Disposition: ADMITTED INPATIENT Condition: Stable Admissions Decision to Admit Reason: Admit from ER (General) Decision to Admit/Date: Feb 20, 2020 Time/Decision to Admit Time: 18:13 Departure-Patient Inst. Referrals: EDEN HOWELL MD (PCP/Family) Primary Care Physician Patient Instructions: Bloody Stools, Adult (DC) JENSEN CHOUDHARY DO Feb 20, 2020 16:21
[2020-02-20] MEDS ORDERED: PANTOPRAZOLE 40 MG (PROTONIX) VIAL IV ONE (16:30)
[2020-02-20 16:40] LABS: BASOPHILS % (AUTO) 0 % (0-10); EOSINOPHILS % (AUTO) 1 % (0-10); HEMATOCRIT 32 % (40-54); HEMOGLOBIN 11.1 G/DL (13.3-17.7); LYMPHOCYTES # (AUTO) 1.6 X 10^3 (1.0-4.0); LYMPHOCYTES % (AUTO) 31 % (12-44); MEAN CORPUSCULAR HEMOGLOBIN 30 PG (25-34); MEAN CORPUSCULAR HGB CONC 35 G/DL (32-36); MEAN CORPUSCULAR VOLUME 87 FL (80-99); MEAN PLATELET VOLUME 10.5 FL (7.4-10.4); MONOCYTES # (AUTO) 0.6 X 10^3 (0.0-1.0); MONOCYTES % (AUTO) 12 % (0-12); NEUTROPHILS # (AUTO) 2.9 X 10^3 (1.8-7.8); NEUTROPHILS % (AUTO) 56 % (42-75); PLATELET COUNT 84 10^3/uL (130-400); RED CELL DISTRIBUTION WIDTH 18.7 % (10.0-14.5); WHITE BLOOD COUNT 5.2 10^3/uL (4.3-11.0)
[2020-02-20] MEDS ORDERED: RT-ALBUTEROL/IPRATROPIUM 3 ML (DUONEB) VIAL INH ONE (16:45)
[2020-02-20 16:51] LABS: INR 1.7 (0.8-1.4); PROTHROMBIN TIME PATIENT 20.5 SEC (12.2-14.7)
[2020-02-20 17:01] LABS: ALANINE AMINOTRANSFERASE 37 U/L (0-55); ALBUMIN 2.4 GM/DL (3.2-4.5); ALKALINE PHOSPHATASE 170 U/L (40-136); BILIRUBIN,TOTAL 2.4 MG/DL (0.1-1.0); BUN/CREATININE RATIO 11; CALCIUM 8.1 MG/DL (8.5-10.1); CARBON DIOXIDE 25 MMOL/L (21-32); CHLORIDE 97 MMOL/L (98-107); CREATININE SERUM 0.73 MG/DL (0.60-1.30); GFR ESTIMATED > 60; GLUCOSE 93 MG/DL (70-105); LIPASE 38 U/L (8-78); POTASSIUM 3.3 MMOL/L (3.6-5.0); SODIUM 135 MMOL/L (135-145)
[2020-02-20] MEDS ORDERED: HOLD METFORMIN - RECEIVED CONTRAST 20 ML VIAL IV SCH (17:30)
[2020-02-20] MEDS ORDERED: IOHEXOL 350 MG/ML 100 ML (OMNIPAQUE 350) VIAL IV ONE (17:30)
[2020-02-20] MEDS ORDERED: NS 100 ML (IVPB) BAG IV ONE (17:30)
--- NOTE | 2020-02-20 18:00 | NUR ---
DR GARZA HERE TO SEE PT
--- NOTE | 2020-02-20 18:00 | Diagnostic Imaging Report ---
INDICATION: Abdominal and pelvic pain with blood in stool. TECHNIQUE: Multiple contiguous axial images were obtained through the abdomen and pelvis after administration of intravenous contrast. Auto Exposure Controls were utilized during the CT exam to meet ALARA standards for radiation dose reduction. COMPARISON: There is no prior study for comparison. FINDINGS: Visualized portions of the lung bases show calcified granuloma in the right lower lobe. There is some mild interstitial scarring in the lung bases. There is no consolidation or pleural fluid or free intraperitoneal air. There are diffuse degenerative findings in the lumbar spine with spondylolysis at L5 with grade 1 spondylolisthesis. The liver shows diffuse low-density change, compatible with fatty infiltration. The liver has a somewhat nodular contour, suggesting cirrhosis. There is no discrete focal liver mass. Gallbladder appears normal. The spleen is not appreciably enlarged and showed no focal lesions. The adrenals and kidneys and pancreas appear normal. There is a small amount of ascites around the liver and spleen and a trace of free fluid in the pelvis. There is no retroperitoneal mass or adenopathy. There is mild atherosclerotic change of the aortoiliac system without aneurysmal disease. There is no pelvic lymphadenopathy. Visualized bowel loops show no overt obstruction. There are uncomplicated sigmoid diverticula. There do appear to be diffuse mildly thickened loops of small bowel without obstruction. These findings may represent enteritis. The SMA and SMV and portal vein are patent. There is a recanalized umbilical vein, compatible with portal hypertension. IMPRESSION: There is mild ascites. The liver shows patchy areas of low density compatible with fatty infiltration as well as a nodular contour, suggesting cirrhosis. There is diffuse mild thickening of the small bowel loops which may represent enteritis, without obstruction. There are uncomplicated clonic diverticula. There is a recanalized umbilical vein compatible with portal hypertension. Incidental note made of spondylolysis at L5 with grade 1 spondylolisthesis. Dictated by: Dictated on workstation # [id number]
--- NOTE | 2020-02-20 18:26 | Consultation - Surgery ---
History of Present Illness History of Present Illness Patient Consulted On(lisset/time) 02/20/20 18:14 Time Seen by Provider: 17:58 History of Present Illness Surgery asked to consult regarding Melena and anemia. HPI per ED: 59-year-old male who presents with "crappy" by red blood. He were reports that it started early this morning last night, that is been present throughout the day. He reports his been "5 gallons" he has some diffuse abdominal pain. Patient also has some mild shortness of breath and is wheezing and is supposed a breathing treatment and has not today. He denies any chest pain. He admits to drinking at least 6 beers a day if not more. He denies any fevers, chills, vomiting. He does have some mild nausea. When I spoke to the pt this evening he states he has never had pain like this be fore and has never had black BM before. He states Dr. Rojas told him "I have a liver". Pt denies previous colonoscopy. Allergies and Home Medications Allergies Coded Allergies: Leticia Known Allergies (Unverified Allergy, Mild, 03/29/18) Home Medications Aspirin 81 Mg Tab.chew, 81 MG PO DAILY Prescribed by: DASHA BURCH on 12/03/19 1355 Furosemide 40 Mg Tablet, 40 MG PO DAILY Prescribed by: DASHA BURCH on 12/03/19 1355 Oxycodone HCl 5 Mg Tablet, 5 MG PO QID PRN for PAIN-SEVERE (8-10) Prescribed by: DASHA BURCH on 12/03/19 1356 Oxycodone HCl 5 Mg Tablet, 5 MG PO Q6H PRN for PAIN-MODERATE (5-7) Prescribed by: RAIN WOLFF on 12/26/19 0943 Potassium Chloride 20 Meq Tablet.er, 20 MEQ PO DAILY Prescribed by: DASHA BURCH on 12/03/19 1355 Patient Home Medication List Home Medication List Reviewed: Yes Past Qwhjqiq-Mafyvu-Lcwmtz Hx Patient Social History Alcohol Use: Regular Use Number of Drinks Today: 0 Recreational Drug Use: Yes Drug of Choice: THC Smoking Status: Current Everyday Smoker Type Used: Cigars Recent Foreign Travel: No Contact w/Someone Who Travel: No Recent Infectious Disease Expo: No Recent Hopitalizations: No Immunizations Up To Date Date of Pneumonia Vaccine: May 04, 2017 Date of Influenza Vaccine: May 04, 2017 Seasonal Allergies Seasonal Allergies: No Surgeries History of Surgeries: No Respiratory History of Respiratory Disorde: Yes (COUGH) Respiratory Disorders: COPD Cardiovascular History of Cardiac Disorders: Yes Cardiac Disorders: Hypertension Neurological History of Neurological Disord: No Reproductive System Hx Reproductive Disorders: No Sexually Transmitted Disease: No HIV/AIDS: No Genitourinary History of Genitourinary Disor: No Gastrointestinal History of Gastrointestinal Di: Yes Gastrointestinal Disorders: Liver Disease/Jaundice Musculoskeletal History of Musculoskeletal Dis: Yes Musculoskeletal Disorders: Arthritis, Chronic Back Pain Endocrine History of Endocrine Disorders: No HEENT History of HEENT Disorders: No Loss of Vision: Bilateral Hearing Impairment: Denies Cancer History of Cancer: No Psychosocial History of Psychiatric Problem: No Integumentary History of Skin or Integumenta: No Blood Transfusions History of Blood Disorders: No Adverse Reaction to a Blood Tr: No (N/A) Family Medical History Significant Family History: Heart Disease, Diabetes, Hypertension, Stroke Family Medial History: Abdominal aortic aneurysm Alcoholism Arthritis Cardiovascular disease Completed stroke Diabetes mellitus Drug abuse Gastroenteritis Hypertension Myocardial infarction Psychosocial problem Review of Systems-General Constitutional: malaise, weakness EENTM: No blurred vision, No double vision, No mouth pain, No mouth swelling, No epistaxis Respiratory: cough, short of breath, wheezing Cardiovascular: No chest pain; edema; No palpitations Gastrointestinal: abdominal pain (minimal), hematemesis, jaundice, nausea, vomiting Genitourinary: No dysuria, No frequency, No hematuria Musculoskeletal: joint pain, joint swelling, muscle stiffness Skin: dryness, lesions Psychiatric/Neurological: Denies Anxiety, Denies Depressed, Denies Seizure, Denies Tremors Other pt denies hx of abnormal bleeding or bruising Physical Exam-General Problems Physical Exam Vital Signs Vital Signs - First Documented 02/20/20 02/20/20 16:20 16:41 Temp 36.8 Pulse 120 Resp 18 B/P (MAP) 130/79 (96) Pulse Ox 98 O2 Delivery Room Air Capillary Refill : Less Than 3 Seconds General Appearance: WD/WN, no apparent distress, obese Eyes: Bilateral Eye PERRL, Bilateral Eye Abnormal EOM HEENT: pharynx normal; No scleral icterus (R), No scleral icterus (L) Neck: non-tender, supple Respiratory: chest non-tender, lungs clear, normal breath sounds, no respiratory distress, no accessory muscle use Cardiovascular: regular rate, rhythm, no murmur Gastrointestinal: normal bowel sounds, soft, no organomegaly, no pulsatile mass, tenderness (diffusely with deep palpation) Rectal: heme positive stool Back: no CVA tenderness, no vertebral tenderness Extremities: non-tender, no calf tenderness, pedal edema, other (b/l chronic venous stasis changes) Neurologic/Psychiatric: palliative care physician II-XII nml as tested, no motor/sensory deficits, alert, normal mood/affect, oriented x 3 Skin: normal color, warm/dry Lymphatic: no adenopathy (neck, axilla or groin) Data Review Labs Laboratory Tests 02/20/20 16:30: White Blood Count 5.2, Red Blood Count 3.65L, Hemoglobin 11.1L, Hematocrit 32L, Mean Corpuscular Volume 87, Mean Corpuscular Hemoglobin 30, Mean Corpuscular Hemoglobin Concent 35, Red Cell Distribution Width 18.7H, Platelet Count 84L, Mean Platelet Volume 10.5H, Neutrophils (%) (Auto) 56, Lymphocytes (%) (Auto) 31, Monocytes (%) (Auto) 12, Eosinophils (%) (Auto) 1, Basophils (%) (Auto) 0, Neutrophils # (Auto) 2.9, Lymphocytes # (Auto) 1.6, Monocytes # (Auto) 0.6, Eosinophils # (Auto) 0.0, Basophils # (Auto) 0.0, Prothrombin Time 20.5H, INR Comment 1.7H, Activated Partial Thromboplast Time 29, Sodium Level 135, Potassium Level 3.3L, Chloride Level 97L, Carbon Dioxide Level 25, Anion Gap 13, Blood Urea Nitrogen 8, Creatinine 0.73, Estimat Glomerular Filtration Rate > 60, BUN/Creatinine Ratio 11, Glucose Level 93, Calcium Level 8.1L, Corrected Calcium 9.4, Total Bilirubin 2.4H, Aspartate Amino Transf (AST/SGOT) 160H, Alanine Aminotransferase (ALT/SGPT) 37, Alkaline Phosphatase 170H, Total Protein 9.0H, Albumin 2.4L, Lipase 38, Serum Alcohol < 10 Radiology Date of Exam:02/20/20 CT ABDOMEN/PELVIS W INDICATION: Abdominal and pelvic pain with blood in stool. TECHNIQUE: Multiple contiguous axial images were obtained through the abdomen and pelvis after administration of intravenous contrast. Auto Exposure Controls were utilized during the CT exam to meet ALARA standards for radiation dose reduction. COMPARISON: There is no prior study for comparison. FINDINGS: Visualized portions of the lung bases show calcified granuloma in the right lower lobe. There is some mild interstitial scarring in the lung bases. There is no consolidation or pleural fluid or free intraperitoneal air. There are diffuse degenerative findings in the lumbar spine with spondylolysis at L5 with grade 1 spondylolisthesis. The liver shows diffuse low-density change, compatible with fatty infiltration. The liver has a somewhat nodular contour, suggesting cirrhosis. There is no discrete focal liver mass. Gallbladder appears normal. The spleen is not appreciably enlarged and showed no focal lesions. The adrenals and kidneys and pancreas appear normal. There is a small amount of ascites around the liver and spleen and a trace of free fluid in the pelvis. There is no retroperitoneal mass or adenopathy. There is mild atherosclerotic change of the aortoiliac system without aneurysmal disease. There is no pelvic lymphadenopathy. Visualized bowel loops show no overt obstruction. There are uncomplicated sigmoid diverticula. There do appear to be diffuse mildly thickened loops of small bowel without obstruction. These findings may represent enteritis. The SMA and SMV and portal vein are patent. There is a recanalized umbilical vein, compatible with portal hypertension. IMPRESSION: There is mild ascites. The liver shows patchy areas of low density compatible with fatty infiltration as well as a nodular contour, suggesting cirrhosis. There is diffuse mild thickening of the small bowel loops which may represent enteritis, without obstruction. There are uncomplicated clonic diverticula. There is a recanalized umbilical vein compatible with portal hypertension. Incidental note made of spondylolysis at L5 with grade 1 spondylolisthesis. 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 I talked with pt regarding EGD and colonoscopy; he is agreeable to getting them done. Will get consent and pt needs to be started on meds to control his ascites. KOBE GARZA DO Feb 20, 2020 18:26
--- NOTE | 2020-02-20 18:51 | NUR ---
PT UP X2 FOR SMALL BM DURING ED STAY
--- NOTE | 2020-02-20 18:53 | NUR ---
PT TAKING IN ICE CHIPS
--- NOTE | 2020-02-20 19:36 | NUR ---
ERYN WOMACK admitted to room 419-1, with an admitting diagnosis of BRIGHT RED BLOOD PER RECTUM, on 02/20/20 from ED via WHEELCHAIR, accompanied by STAFF.ERYN WOMACK introduced to surroundings, call light, bed controls, phone, TV, temperature control, lights, meal times, smoking policy, visitor policy, side rail policy, bathrooms and showers. Patient Rights given to patient in the handbook. ERYN WOMACK verbalizes understanding that [facility] is not responsible for the loss or damage to any personal effects or valuables that are kept in the patients posession during their hospitalization. ERYN WOMACK verbalizes understanding of Interdisciplinary Patient Education. Patient and/or family were informed about the Rapid Response Team and its purpose.
[2020-02-20] MEDS ORDERED: ONDANSETRON 4 MG/2 ML (SDV) Z0FRAN IV PRN (19:45)
[2020-02-20] MEDS ORDERED: CATHETER FLUSH 10 ML SYR IV PRN (19:45)
[2020-02-20 19:50] VITALS: BP 132/79
[2020-02-20] MEDS: NS IV 1000 ML 1,000 ML IV SCH (20:29)
--- NOTE | 2020-02-20 20:37 | NUR ---
PT ADMITTED UNDER HOSPITALIST BUT HIS PCP IS DR. HOWELL. DR. BURCH, DRAWBENCH OPERATOR FOR HOSPITALIST NOTIFIED. PT SWITCHED TO DR. ZHENG FOR [facility], WHO WAS, ALSO, NOTIFIED. NEW ORDERS RECEIVED AT THIS TIME.
--- NOTE | 2020-02-20 20:38 | NUR ---
PT RATING PAIN 10/10 MOSTLY IN BILAT. FEET. PT USUALLY TAKES OXYCODONE [address] ZHENG NOTIFIED. NEW ORDERS RECEIVED.
[2020-02-20] MEDS ORDERED: oxyCODONE/APAP 5/325MG (PERCOCET 5) TABLET PO PRN (20:45)
--- NOTE | 2020-02-20 23:00 | NUR ---
MRSA AND COVID19 NASAL SWABS COLLECTED AT THIS TIME. CONSENT SIGNED.
[2020-02-21] VITALS (7 sets, daily range): BP systolic 104–135; BP diastolic 68–73
[2020-02-21 06:00] LABS: BASOPHILS % (AUTO) 0 % (0-10); EOSINOPHILS # (AUTO) 0.1 10^3/uL (0.0-0.3); EOSINOPHILS % (AUTO) 3 % (0-10); HEMATOCRIT 26 % (40-54); HEMOGLOBIN 8.9 G/DL (13.3-17.7); LYMPHOCYTES # (AUTO) 1.2 X 10^3 (1.0-4.0); LYMPHOCYTES % (AUTO) 33 % (12-44); MEAN CORPUSCULAR HEMOGLOBIN 30 PG (25-34); MEAN CORPUSCULAR HGB CONC 34 G/DL (32-36); MEAN CORPUSCULAR VOLUME 88 FL (80-99); MEAN PLATELET VOLUME 11.3 FL (7.4-10.4); MONOCYTES # (AUTO) 0.5 X 10^3 (0.0-1.0); MONOCYTES % (AUTO) 13 % (0-12); NEUTROPHILS # (AUTO) 1.8 X 10^3 (1.8-7.8); NEUTROPHILS % (AUTO) 51 % (42-75); PLATELET COUNT 67 10^3/uL (130-400); RED CELL DISTRIBUTION WIDTH 18.7 % (10.0-14.5); WHITE BLOOD COUNT 3.6 10^3/uL (4.3-11.0)
[2020-02-21] MEDS: NS IV 1000 ML 1,000 ML IV SCH ×2 (06:09→14:53)
[2020-02-21 06:14] LABS: ALANINE AMINOTRANSFERASE 28 U/L (0-55); ALKALINE PHOSPHATASE 134 U/L (40-136); BILIRUBIN,TOTAL 2.2 MG/DL (0.1-1.0); BUN/CREATININE RATIO 12; CALCIUM 7.3 MG/DL (8.5-10.1); CARBON DIOXIDE 24 MMOL/L (21-32); CHLORIDE 100 MMOL/L (98-107); CREATININE SERUM 0.65 MG/DL (0.60-1.30); GFR ESTIMATED > 60; GLUCOSE 94 MG/DL (70-105); POTASSIUM 2.9 MMOL/L (3.6-5.0); SODIUM 133 MMOL/L (135-145); TOTAL PROTEIN 7.3 GM/DL (6.4-8.2)
[2020-02-21] MEDS ORDERED: FURO-125 PO (08:33)
[2020-02-21] MEDS ORDERED: MELO15TA39 PO (08:33)
[2020-02-21] MEDS ORDERED: POTA-51 PO (08:33)
--- NOTE | 2020-02-21 08:55 | Progress Note - Surgery ---
JAVIERSADIE MED STUDENT 02/21/20 0854: Subjective Date Seen by a Provider: Feb 21, 2020 Time Seen by a Provider: 08:40 Subjective/Events-last exam Patient reports numerous bowel movements over night that have made him feel better than yesterday. He reports no abdominal pain. He would like to know more about colonoscopy. Objective Exam Vital Signs Date Time Temp Pulse Resp B/P (MAP) Pulse Ox O2 Delivery O2 Flow Rate FiO2 02/21/20 07:24 36.8 80 20 135/69 (91) 95 Room Air 02/21/20 04:00 36.4 92 24 122/73 (89) 97 Room Air 02/21/20 00:00 37.5 95 24 104/70 (81) 99 Room Air 02/20/20 19:50 36.6 99 17 132/79 98 Room Air 02/20/20 19:36 Room Air 02/20/20 19:28 36.8 120 18 125/82 (96) 98 Room Air 02/20/20 16:41 98 Room Air 02/20/20 16:20 36.8 120 18 130/79 (96) 98 I & O 02/21/20 07:00 Intake Total 2250 ml Output Total 200 ml Balance 2050 ml Capillary Refill : Less Than 3 Seconds General Appearance: No Apparent Distress, WD/WN Respiratory: No Lungs Clear; No Accessory Muscle Use, No Respiratory Distress, Crackles Cardiovascular: Regular Rate, Rhythm, No Murmur Gastrointestinal: soft, no pulsatile mass; No tenderness Extremity: No Calf Tenderness; Pedal Edema Neurologic/Psychiatric: Alert, Oriented x3 Results Lab Laboratory Tests 02/20/20 16:30: White Blood Count 5.2, Red Blood Count 3.65L, Hemoglobin 11.1L, Hematocrit 32L, Mean Corpuscular Volume 87, Mean Corpuscular Hemoglobin 30, Mean Corpuscular Hemoglobin Concent 35, Red Cell Distribution Width 18.7H, Platelet Count 84L, Mean Platelet Volume 10.5H, Neutrophils (%) (Auto) 56, Lymphocytes (%) (Auto) 31, Monocytes (%) (Auto) 12, Eosinophils (%) (Auto) 1, Basophils (%) (Auto) 0, Neutrophils # (Auto) 2.9, Lymphocytes # (Auto) 1.6, Monocytes # (Auto) 0.6, Eosinophils # (Auto) 0.0, Basophils # (Auto) 0.0, Prothrombin Time 20.5H, INR Comment 1.7H, Activated Partial Thromboplast Time 29, Sodium Level 135, Potassium Level 3.3L, Chloride Level 97L, Carbon Dioxide Level 25, Anion Gap 13, Blood Urea Nitrogen 8, Creatinine 0.73, Estimat Glomerular Filtration Rate > 60, BUN/Creatinine Ratio 11, Glucose Level 93, Calcium Level 8.1L, Corrected Calcium 9.4, Total Bilirubin 2.4H, Aspartate Amino Transf (AST/SGOT) 160H, Alanine Aminotransferase (ALT/SGPT) 37, Alkaline Phosphatase 170H, Total Protein 9.0H, Albumin 2.4L, Lipase 38, Serum Alcohol < 10 02/20/20 23:00: 02/21/20 05:24: White Blood Count 3.6L, Red Blood Count 2.94L, Hemoglobin 8.9L, Hematocrit 26L, Mean Corpuscular Volume 88, Mean Corpuscular Hemoglobin 30, Mean Corpuscular Hemoglobin Concent 34, Red Cell Distribution Width 18.7H, Platelet Count 67L, Mean Platelet Volume 11.3H, Neutrophils (%) (Auto) 51, Lymphocytes (%) (Auto) 33, Monocytes (%) (Auto) 13H, Eosinophils (%) (Auto) 3, Basophils (%) (Auto) 0, Neutrophils # (Auto) 1.8, Lymphocytes # (Auto) 1.2, Monocytes # (Auto) 0.5, E osinophils # (Auto) 0.1, Basophils # (Auto) 0.0, Sodium Level 133L, Potassium Level 2.9L, Chloride Level 100, Carbon Dioxide Level 24, Anion Gap 9, Blood Urea Nitrogen 8, Creatinine 0.65, Estimat Glomerular Filtration Rate > 60, BUN/Creatinine Ratio 12, Glucose Level 94, Calcium Level 7.3L, Corrected Calcium 8.9, Total Bilirubin 2.2H, Aspartate Amino Transf (AST/SGOT) 124H, Alanine Aminotransferase (ALT/SGPT) 28, Alkaline Phosphatase 134, Total Protein 7.3, Albumin 2.0L Assessment/Plan Assessment/Plan Assessment/Plan Anemia Melena Ascites 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 His main complaint is his feet are bothering him. Review of Systems General: No Chills, No Night Sweats Pulmonary: No Dyspnea, No Cough Cardiovascular: No: Chest Pain, Palpitations Gastrointestinal: No: Nausea, Vomiting Objective Exam General Appearance: No Apparent Distress, WD/WN Respiratory: No Accessory Muscle Use, No Respiratory Distress, Crackles Cardiovascular: Regular Rate, Rhythm Gastrointestinal: non tender, soft Extremity: Other (pt's left 1st and 3rd toe have area of black at tip.....??necrotic) Skin: Other (chronic venous stasis changes in b/l LE) Assessment/Plan Assessment/Plan Assessment/Plan I again discussed EGD and Colonoscopy with the pt; explaining the reasoning for doing the two procedures. Went over the risks and complications not limited to pain, bleeding, infection, intestinal or esophageal perforation and need for further procedure. All questions answered to his satisfaction. Supervisory-Addendum Brief Verification & Attestation Participated in pt care: history, MDM, physical Personally performed: exam, history, MDM Care discussed with: Medical Student Procedures: n/a Verification and Attestation of Medical Student E/M Service A medical student performed and documented this service. I then reviewed and verified all information documented by the medical student and made modifications to such information, when appropriate. I personally performed a physical exam, medical decision making and then discussed any differences between the notes and made revisions as necessary to create one note. Dudley Merrill , 02/21/20 , 16:31 SADIE HERRERA MED STUDENT Feb 21, 2020 08:54 DUDLEY MERRILL DO Feb 21, 2020 16:31
--- NOTE | 2020-02-21 08:55 | NUR ---
SPOKE WITH THE PT AND WENT THRU THE EXT MED HISTORY TO COMPLETE THE MED REC FUROSEMIDE 20MG SHOWS ON THE EXT MED HISTORY (LAST FILLED 12-03-2019 #30) PT INDICATES "THEY TOOK ME OFF THAT" HOWEVER PT SAYS HE STILL TAKES THEM PRN. PT SAYS HE DOESNT THINK HIS PCP IS AWARE OF HIM TAKING IT PRN BUT DUE TO PAIN IN HIS FEET FROM TO SWELLING HE TAKES IT ANYWAY PT DENIES ANY OTC MEDS
[2020-02-21] MEDS: POTASSIUM CL 10MEQ/50ML IVPB 50 ML IV SCH ×4 (10:30→13:50)
[2020-02-21] MEDS ORDERED: BISACODYL 5 MG (DULCOLAX) TABLET PO SCH ×2 (12:00→15:00)
--- NOTE | 2020-02-21 12:01 | History & Physical ---
UGOR[employer] MED STUDENT 02/21/20 1200: History of Present Illness History of Present Illness Reason for visit/HPI Patient is a 59 year old male that presents for BRBPR. He complains of pain in his feet that is severe and feels like burning and needles. His feet appear to be swollen and slightly erythematous. He has a history of liver and heart problems as well as arthritis. He has been homeless at certain points in his life. He is a smoker with a 50pack/year hx and drinks beer daily to alleviate his pain. Surg hx includes removal of some tissue on his cheek and he also has had a chest tube placed in the past. Date of Admission Feb 20, 2020 at 18:15 Date Seen by a Provider: Feb 21, 2020 Time Seen by a Provider: 09:35 I consulted on this patient on 02/21/20 11:53 Attending Physician Chey Zheng MD Admitting Physician Janae Rojas MD Consult Allergies and Home Medications Allergies Coded Allergies: NKANo Known Allergies (Verified Allergy, Mild, 02/21/20) Home Medications Furosemide 20 Mg Tablet, 20 MG PO DAILY PRN for FLUID RETENTION, (Reported) Meloxicam 15 Mg Tablet, 15 MG PO DAILY, (Reported) Potassium Chloride 20 Meq Tablet.er, 20 MEQ PO DAILY, (Reported) Patient Home Medication List Home Medication List Reviewed: Yes Past Cpydqto-Lbicky-Lerovy Hx Patient Social History Alcohol Use: Regular Use (States that he regularly drinks beer daily, amount depends on pain.) Number of Drinks Today: 0 Alcohol Beverage of Choice: Beer, Vodka Recreational Drug Use: Yes Drug of Choice: THC Smoking Status: Current Everyday Smoker (50 Pack/year HX) Type Used: Cigars Recent Foreign Travel: No Contact w/other who traveled: No Recent Hopitalizations: No Recent Infectious Disease Expo: No Immunizations Up To Date Date of Pneumonia Vaccine: Feb 19, 2015 Date of Influenza Vaccine: May 04, 2017 Seasonal Allergies Seasonal Allergies: No Surgeries No Respiratory Yes (COUGH) COPD (Patient stated he has been told he has COPD) Cardiovascular Yes Hypertension Neurological No Reproductive System Hx Reproductive Disorders: No Sexually Transmitted Disease: No HIV/AIDS: No Genitourinary No Gastrointestinal Yes Liver Disease/Jaundice Musculoskeletal Yes Arthritis, Chronic Back Pain Endocrine History of Endocrine Disorders: No HEENT History of HEENT Disorders: No Loss of Vision: Bilateral Hearing Impairment: Denies Cancer No Psychosocial History of Psychiatric Problem: No Integumentary History of Skin or Integumenta: No Blood Transfusions History of Blood Disorders: No Adverse Reaction to a Blood Tr: No (N/A) Family Medical History Significant Family History: Heart Disease, Diabetes, Hypertension, Stroke Family Hx: Abdominal aortic aneurysm Alcoholism Arthritis Cardiovascular disease Completed stroke Diabetes mellitus Drug abuse Gastroenteritis Hypertension Myocardial infarction Psychosocial problem Review of Systems Constitutional: see HPI EENTM: see HPI Respiratory: wheezing (Slight expiratory wheeze in LLQ) Cardiovascular: no symptoms reported Gastrointestinal: see HPI Genitourinary: see HPI Musculoskeletal: joint pain (Patient states he has severe pain in his feet and toes) Skin: change in color (Lower extremities are swollen and slightly eryhtematous.) Physical Exam Vital Signs Vital Signs - First Documented 02/20/20 02/20/20 16:20 16:41 Temp 36.8 Pulse 120 Resp 18 B/P (MAP) 130/79 (96) Pulse Ox 98 O2 Delivery Room Air Capillary Refill : Less Than 3 Seconds Height, Weight, BMI Height: 5'8.00" Weight: 260lbs. 0.0oz. [id number]; 37.58 BMI Method:Stated General Appearance: Mild Distress (Distress due to bilateral LE pain) HEENT: PERRL/EOMI, TMs Normal, Normal ENT Inspection, Pharynx Normal Neck: Full Range of Motion, Normal Inspection, Non Tender, Supple Respiratory: Chest Non Tender, Wheezing (Slight expiratory wheeze in LLQ) Cardiovascular: Regular Rate, Rhythm, No Edema, No Gallop, No JVD, No Murmur, Normal Peripheral Pulses Gastrointestinal: Normal Bowel Sounds, No Organomegaly, No Pulsatile Mass, Non Tender, Soft Rectal: Deferred Extremity: Pedal Edema (Bilateral pedal edema) Neurologic/Psychiatric: Alert, Oriented x3, No Motor/Sensory Deficits, Normal Mood/Affect Skin: Erythema (Slight erythema bilaterally on feet) Lymphatic: No Adenopathy Assessment/Plan Assessment and Plan Problems: (1) Normocytic anemia Status: Acute Assessment & Plan: Patient has already been Type and Screened. Continue to monitor Hemoglobin and Hematocrit daily and transfuse if needed. Bowel prep patient to be scoped to see if there is any upper or lower GI bleed. (2) Bright red blood per rectum Status: Acute Assessment & Plan: Continue to monitor the patient. Scope the patients lower GI tract to identify and fix any bleeding. Admission Diagnosis Admission Status: Inpatient Order (span 2 midnights) Reason for Inpatient Admission: Patient is anemic and has a suspected GI bleed. Clinical Quality Measures DVT/VTE Risk/Contraindication: Risk Factor Score Per Nursin RFS Level Per Nursing on Admit: 4+=Very High Supervisory-Addendum Brief Verification & Attestation Participated in pt care: history, physical Personally performed: exam, history Care discussed with: other (Attending) Procedures: n/a n/a CHEY ZHENG MD 02/21/20 2211: History of Present Illness History of Present Illness Reason for visit/HPI Agree with above Allergies and Home Medications Allergies Coded Allergies: NKANo Known Allergies (Verified Allergy, Mild, 02/21/20) Home Medications Furosemide 20 Mg Tablet, 20 MG PO DAILY PRN for FLUID RETENTION, (Reported) Meloxicam 15 Mg Tablet, 15 MG PO DAILY, (Reported) Potassium Chloride 20 Meq Tablet.er, 20 MEQ PO DAILY, (Reported) Patient Home Medication List Home Medication List Reviewed: Yes Past Xxzpiui-Vajgwk-Zyishl Hx Family Medical History Family Hx: Abdominal aortic aneurysm Alcoholism Arthritis Cardiovascular disease Completed stroke Diabetes mellitus Drug abuse Gastroenteritis Hypertension Myocardial infarction Psychosocial problem Review of Systems Constitutional: malaise, weakness EENTM: no symptoms reported; No mouth pain, No epistaxis, No nose congestion, No nose pain Respiratory: short of breath, wheezing (Slight expiratory wheeze in LLQ) Cardiovascular: no symptoms reported; No chest pain, No palpitations Gastrointestinal: abdominal pain, diarrhea, melena; No nausea, No vomiting Genitourinary: no symptoms reported; No dysuria, No frequency, No hematuria Musculoskeletal: no symptoms reported Skin: no symptoms reported Psychiatric/Neurological: No Symptoms Reported Physical Exam General Appearance: No Apparent Distress, WD/WN HEENT: PERRL/EOMI Neck: Full Range of Motion, Normal Inspection, Non Tender, Supple Respiratory: No Accessory Muscle Use, No Respiratory Distress, Expiration, Wheezing (Slight expiratory wheeze in LLQ) Cardiovascular: Regular Rate, Rhythm, No Edema, No Murmur, Normal Peripheral Pulses Gastrointestinal: Normal Bowel Sounds, Non Tender, Soft; No Distended, No Guarding Extremity: Pedal Edema (Bilateral pedal edema 3+) Neurologic/Psychiatric: Alert, Oriented x3, No Motor/Sensory Deficits, Normal Mood/Affect Skin: Normal Color, Warm/Dry Lymphatic: No Adenopathy Assessment/Plan Assessment and Plan Problems: (1) Bright red blood per rectum Status: Acute Assessment & Plan: 02/20: Dr Merrill consulted and plans to take patient for colonoscopy (2) Normocytic anemia Status: Acute Assessment & Plan: - Likely 2/2 to acute bleed, will continue to monitor (3) Cirrhosis of liver Status: Chronic Qualifiers: (4) Ascites Status: Chronic Qualifiers: Qualified Codes: K70.31 - Alcoholic cirrhosis of liver with ascites (5) Alcohol dependence Status: Chronic Assessment & Plan: - CIWS scoring (6) Tobacco abuse Status: Chronic Assessment & Plan: - Discussed the need for cessation (7) Hypokalemia Status: Acute Assessment & Plan: - replaced and repeat BMP, Mg, Ph in AM (8) DVT prophylaxis Status: Acute Assessment & Plan: - SCDs only due to acute bleeding Supervisory-Addendum Brief Verification & Attestation Participated in pt care: history, physical Personally performed: exam, history Care discussed with: Medical Student Procedures: n/a Verification and Attestation of Medical Student E/M Service A medical student performed and documented this service in my presence. I reviewed and verified all information documented by the medical student and made modifications to such information, when appropriate. I personally performed the physical exam and medical decision making. Chey Zheng, Feb 21, 2020,22:16 ROME ARIZMENDI MED STUDENT Feb 21, 2020 12:00 CHEY ZHENG MD Feb 21, 2020 22:11
[2020-02-21] MEDS ORDERED: polyethylene glycoL Bowel Prep(MIRALAX) 238 GM PO SCH (18:00)
[2020-02-22] MEDS: NS IV 1000 ML 1,000 ML IV SCH ×3 (03:20→22:12)
[2020-02-22 04:00] VITALS: BP 135/78
[2020-02-22 06:18] LABS: BASOPHILS % (AUTO) 0 % (0-10); EOSINOPHILS # (AUTO) 0.2 10^3/uL (0.0-0.3); EOSINOPHILS % (AUTO) 7 % (0-10); HEMATOCRIT 27 % (40-54); HEMOGLOBIN 9.1 G/DL (13.3-17.7); LYMPHOCYTES # (AUTO) 1.1 X 10^3 (1.0-4.0); LYMPHOCYTES % (AUTO) 33 % (12-44); MEAN CORPUSCULAR HEMOGLOBIN 30 PG (25-34); MEAN CORPUSCULAR HGB CONC 33 G/DL (32-36); MEAN CORPUSCULAR VOLUME 91 FL (80-99); MEAN PLATELET VOLUME 10.6 FL (7.4-10.4); MONOCYTES # (AUTO) 0.4 X 10^3 (0.0-1.0); MONOCYTES % (AUTO) 13 % (0-12); NEUTROPHILS # (AUTO) 1.5 X 10^3 (1.8-7.8); NEUTROPHILS % (AUTO) 47 % (42-75); PLATELET COUNT 60 10^3/uL (130-400); RED CELL DISTRIBUTION WIDTH 19.9 % (10.0-14.5); WHITE BLOOD COUNT 3.3 10^3/uL (4.3-11.0)
[2020-02-22 06:35] LABS: BUN/CREATININE RATIO 10; CALCIUM 7.2 MG/DL (8.5-10.1); CARBON DIOXIDE 20 MMOL/L (21-32); CHLORIDE 104 MMOL/L (98-107); GFR ESTIMATED > 60; GLUCOSE 87 MG/DL (70-105); MAGNESIUM 1.7 MG/DL (1.6-2.4); PHOSPHORUS 2.6 MG/DL (2.3-4.7); SODIUM 135 MMOL/L (135-145)
[2020-02-22 07:31] VITALS: BP 140/74
[2020-02-22 13:00] VITALS: BP 131/71
--- NOTE | 2020-02-22 13:50 | Progress Note - Surgery ---
Subjective Time Seen by a Provider: 13:21 Subjective/Events-last exam Pt seen and examined, states he was sleeping and woke up and there was juice in front of him so he drank it. Denies any more melena. States ready for endoscopy. Review of Systems Pulmonary: No Dyspnea, No Cough Cardiovascular: No: Chest Pain, Palpitations Gastrointestinal: No: Nausea, Vomiting Objective Exam Vital Signs Date Time Temp Pulse Resp B/P (MAP) Pulse Ox O2 Delivery O2 Flow Rate FiO2 02/22/20 13:00 36.5 80 16 131/71 (91) 100 Room Air 02/22/20 08:00 Room Air 02/22/20 07:31 37.0 86 20 140/74 (96) 95 Room Air 02/22/20 04:00 36.3 84 18 135/78 (97) 98 Room Air 02/21/20 23:56 36.3 79 15 124/68 (86) 99 Room Air 02/21/20 20:00 Room Air 02/21/20 19:44 36.2 76 16 119/73 (88) 98 Room Air 02/21/20 15:30 36.4 77 18 117/69 (85) 98 Room Air I & O 02/22/20 07:00 Intake Total 4568 ml Output Total 375 ml Balance 4193 ml Capillary Refill : Less Than 3 Seconds General Appearance: No Apparent Distress, WD/WN HEENT: PERRL/EOMI Respiratory: No Accessory Muscle Use, No Respiratory Distress, Expiration, Wheezing (Slight expiratory wheeze in LLQ) Cardiovascular: Regular Rate, Rhythm, No Murmur Gastrointestinal: non tender, soft Extremity: Pedal Edema (Bilateral pedal edema 3+) Results Lab Laboratory Tests 02/22/20 05:38: White Blood Count 3.3L, Red Blood Count 2.99L, Hemoglobin 9.1L, Hematocrit 27L, Mean Corpuscular Volume 91, Mean Corpuscular Hemoglobin 30, Mean Corpuscular Hemoglobin Concent 33, Red Cell Distribution Width 19.9H, Platelet Count 60L, Mean Platelet Volume 10.6H, Neutrophils (%) (Auto) 47, Lymphocytes (%) (Auto) 33, Monocytes (%) (Auto) 13H, Eosinophils (%) (Auto) 7, Basophils (%) (Auto) 0, Neutrophils # (Auto) 1.5L, Lymphocytes # (Auto) 1.1, Monocytes # (Auto) 0.4, Eosinophils # (Auto) 0.2, Basophils # (Auto) 0.0, Sodium Level 135, Potassium Level 3.0L, Chloride Level 104, Carbon Dioxide Level 20L, Anion Gap 11, Blood Urea Nitrogen 6L, Creatinine 0.60, Estimat Glomerular Filtration Rate > 60, BUN/Creatinine Ratio 10, Glucose Level 87, Calcium Level 7.2L, Phosphorus Level 2.6, Magnesium Level 1.7 Microbiology 02/20/20 MRSA Screen - Final, Complete MRSA not isolated Assessment/Plan Assessment/Plan Assessment/Plan Anemia Melena Plan for EGD/Colonoscopy today; 2:45 because we have to wait 2 hours from time he drank cranberry juice. Clinical Quality Measures DVT/VTE Risk/Contraindication: Risk Factor Score Per Nursin RFS Level Per Nursing on Admit: 4+=Very High KOBE GARZA DO Feb 22, 2020 13:50
[2020-02-22] MEDS ORDERED: MIDAZOLAM 2 MG/2 ML (VERSED) VIAL ONE (14:08)
[2020-02-22] MEDS ORDERED: proPOfol 200 MG/20 ML (DIPRIVAN) VIAL IV ONE ×2 (14:08→15:00)
[2020-02-22] MEDS ORDERED: LACTATED RINGERS 1,000 ML IV ONE ×2 (14:18→15:15)
[2020-02-22] MEDS ORDERED: PHENYLEPHRINE 100 MCG/ML 10 ML (ANESTHESIA) SYR ONE (15:00)
[2020-02-22] MEDS ORDERED: HURRICAINE EXT TUBE (BENZOCAINE) ONE (15:03)
[2020-02-22] MEDS ORDERED: HURRICAINE EXT TUBE (BENZOCAINE) XX ONE (15:15)
--- NOTE | 2020-02-22 15:44 | Anesthesia-General Post-Op ---
MAC Patient Condition Mental Status/LOC: Same as Preop Cardiovascular: Satisfactory Nausea/Vomiting: Absent Respiratory: Satisfactory Pain: Controlled Complications: Absent Post Op Complications Complications None Follow Up Care/Instructions Patient Instructions None needed. Anesthesiology Discharge Order Discharge Order Patient is doing well, no complaints, stable vital signs, no apparent adverse anesthesia problems. PATRICIO MURGUIA DO Feb 22, 2020 15:44
[2020-02-22 15:45] VITALS: BP 152/83
--- NOTE | 2020-02-22 15:50 | Progress Note-Post Operative ---
Post-Operative Progess Note Surgeon (s)/[employer] Worker (s) Surgeon KOBE GARZA DO [employer] Worker: CECILIO Ron Pre-Operative Diagnosis Anemia, melena Post-Operative Diagnosis duodenal ulcer Severe Gastritis hiatal hernia Polyps Diverticula internal hemorrhoids Procedure & Operative Findings Date of Procedure 02/22/20 Procedure Performed/Findings EGD with bx Colon with snare Colon with tattoo Anesthesia Type IV sedation by Anesthesia Estimated Blood Loss Estimated blood loss (mL): scant Specimens/Packing Specimens Removed duodenal bx antral bx body of stomach bx GE jxn bx Ascending colon polyp Descending colon polyp x4 Sigmoid polyp x 2 KOBE GARZA DO Feb 22, 2020 15:50
[2020-02-22 16:44] VITALS: BP 153/68
[2020-02-22 19:44] VITALS: BP 154/68
[2020-02-22] MEDS ORDERED: PANTOPRAZOLE 40 MG (PROTONIX) TAB PO ONE (21:00)
--- NOTE | 2020-02-22 21:00 | NUR ---
Patient is continuously complaining of abdominal pain and moaning in room after receiving pain medication and getting up and walking. Contacted Dr. Sol and informed her of the patients status and complaints. She requested 40 of Protonix PO once daily.
--- NOTE | 2020-02-22 21:12 | Progress Note ---
Subjective Subjective/Events-last exam Patient is ready for Scopes this afternoon. States that he is very hungry. Pain is controlled. Review of Systems Pulmonary: No Dyspnea, No Cough Cardiovascular: Edema; No: Chest Pain, Palpitations Gastrointestinal: Abdominal Pain; No: Nausea, Vomiting Objective Exam Last Set of Vital Signs Vital Signs Date Time Temp Pulse Resp B/P (MAP) Pulse Ox O2 Delivery O2 Flow Rate FiO2 02/22/20 19:44 36.1 78 22 154/68 (96) 97 Room Air Capillary Refill : Less Than 3 Seconds I&O Intake and Output 02/22/20 00:00 Intake Total 6218 ml Output Total 575 ml Balance 5643 ml Intake Oral 4018 ml IV Total 2200 ml Output Urine Total 575 ml # Voids 8 # Bowel Movements 5 General: Alert, Oriented X3, Cooperative, No Acute Distress Lungs: Clear to Auscultation, Normal Air Movement Heart: Regular Rate, No Murmurs Abdomen: Normal Bowel Sounds, Soft, Other (mild ttp epigastic region, no rebound or guarding) Extremities: Other (2+ pitting edema equal bilaterally) Results/Procedures Lab Laboratory Tests 02/22/20 05:38: White Blood Count 3.3L, Red Blood Count 2.99L, Hemoglobin 9.1L, Hematocrit 27L, Mean Corpuscular Volume 91, Mean Corpuscular Hemoglobin 30, Mean Corpuscular Hemoglobin Concent 33, Red Cell Distribution Width 19.9H, Platelet Count 60L, Mean Platelet Volume 10.6H, Neutrophils (%) (Auto) 47, Lymphocytes (%) (Auto) 33, Monocytes (%) (Auto) 13H, Eosinophils (%) (Auto) 7, Basophils (%) (Auto) 0, Neutrophils # (Auto) 1.5L, Lymphocytes # (Auto) 1.1, Monocytes # (Auto) 0.4, Eosinophils # (Auto) 0.2, Basophils # (Auto) 0.0, Sodium Level 135, Potassium Level 3.0L, Chloride Level 104, Carbon Dioxide Level 20L, Anion Gap 11, Blood Urea Nitrogen 6L, Creatinine 0.60, Estimat Glomerular Filtration Rate > 60, BUN/Creatinine Ratio 10, Glucose Level 87, Calcium Level 7.2L, Phosphorus Level 2.6, Magnesium Level 1.7 Microbiology 02/20/20 MRSA Screen - Final, Complete MRSA not isolated Radiology Date of Exam:02/20/20 CT ABDOMEN/PELVIS W INDICATION: Abdominal and pelvic pain with blood in stool. TECHNIQUE: Multiple contiguous axial images were obtained through the abdomen and pelvis after administration of intravenous contrast. Auto Exposure Controls were utilized during the CT exam to meet ALARA standards for radiation dose reduction. COMPARISON: There is no prior study for comparison. FINDINGS: Visualized portions of the lung bases show calcified granuloma in the right lower lobe. There is some mild interstitial scarring in the lung bases. There is no consolidation or pleural fluid or free intraperitoneal air. There are diffuse degenerative findings in the lumbar spine with spondylolysis at L5 with grade 1 spondylolisthesis. The liver shows diffuse low-density change, compatible with fatty infiltration. The liver has a somewhat nodular contour, suggesting cirrhosis. There is no discrete focal liver mass. Gallbladder appears normal. The spleen is not appreciably enlarged and showed no focal lesions. The adrenals and kidneys and pancreas appear normal. There is a small amount of ascites around the liver and spleen and a trace of free fluid in the pelvis. There is no retroperitoneal mass or adenopathy. There is mild atherosclerotic change of the aortoiliac system without aneurysmal disease. There is no pelvic lymphadenopathy. Visualized bowel loops show no overt obstruction. There are uncomplicated sigmoid diverticula. There do appear to be diffuse mildly thickened loops of small bowel without obstruction. These findings may represent enteritis. The SMA and SMV and portal vein are patent. There is a recanalized umbilical vein, compatible with portal hypertension. IMPRESSION: There is mild ascites. The liver shows patchy areas of low density compatible with fatty infiltration as well as a nodular contour, suggesting cirrhosis. There is diffuse mild thickening of the small bowel loops which may represent enteritis, without obstruction. There are uncomplicated clonic diverticula. There is a recanalized umbilical vein compatible with portal hypertension. Incidental note made of spondylolysis at L5 with grade 1 spondylolisthesis. Dictated on workstation # [id number] Dict: 02/20/20 1747 Trans: 02/20/20 1759 AS6 [id number] Interpreted by: J LUIS JEAN-BAPTISTE MD Electronically signed by: Assessment/Plan Assessment/Plan (1) Gastritis Status: Acute Assessment & Plan: 02/21: EGD done today with severe findings, start PPI Qualifiers: Qualified Codes: K29.20 - Alcoholic gastritis without bleeding (2) Colorectal polyps Status: Chronic Assessment & Plan: 02/21: Colonoscopy done today with multiple polyps removed, pathology pending (3) Cirrhosis of liver Status: Chronic Assessment & Plan: 02/21: Discussed the need for EtOH cessation, offered ATS at [facility] Qualifiers: (4) Bright red blood per rectum Status: Resolved (5) Ascites Status: Chronic Qualifiers: Qualified Codes: K70.31 - Alcoholic cirrhosis of liver with ascites (6) Normocytic anemia Status: Acute Assessment & Plan: 02/21: Hgb Stable today, will continue to monitor (7) Alcohol dependence Status: Chronic (8) Hypokalemia Status: Acute Assessment & Plan: - Replaced, repeat BMP in AM (9) Tobacco abuse Status: Chronic (10) DVT prophylaxis Status: Acute Assessment & Plan: - SCDs only due to acute GI bleeding Clinical Quality Measures DVT/VTE Risk/Contraindication: Risk Factor Score Per Nursin RFS Level Per Nursing on Admit: 4+=Very High CHEY ZHENG MD Feb 22, 2020 21:12
[2020-02-22] MEDS ORDERED: KCL 20 MEQ TAB (K-DUR) PO ONE (21:15)
[2020-02-23] VITALS: BP 110/73
[2020-02-23 04:00] VITALS: BP 120/74
[2020-02-23 06:13] LABS: BASOPHILS % (AUTO) 0 % (0-10); EOSINOPHILS # (AUTO) 0.2 10^3/uL (0.0-0.3); EOSINOPHILS % (AUTO) 4 % (0-10); HEMATOCRIT 25 % (40-54); HEMOGLOBIN 8.1 G/DL (13.3-17.7); LYMPHOCYTES # (AUTO) 1.1 X 10^3 (1.0-4.0); LYMPHOCYTES % (AUTO) 28 % (12-44); MEAN CORPUSCULAR HEMOGLOBIN 30 PG (25-34); MEAN CORPUSCULAR HGB CONC 33 G/DL (32-36); MEAN CORPUSCULAR VOLUME 92 FL (80-99); MEAN PLATELET VOLUME 10.7 FL (7.4-10.4); MONOCYTES # (AUTO) 0.6 X 10^3 (0.0-1.0); MONOCYTES % (AUTO) 14 % (0-12); NEUTROPHILS # (AUTO) 2.1 X 10^3 (1.8-7.8); NEUTROPHILS % (AUTO) 54 % (42-75); PLATELET COUNT 59 10^3/uL (130-400); WHITE BLOOD COUNT 3.9 10^3/uL (4.3-11.0)
[2020-02-23 06:35] LABS: ALANINE AMINOTRANSFERASE 33 U/L (0-55); ALBUMIN 1.8 GM/DL (3.2-4.5); ALKALINE PHOSPHATASE 118 U/L (40-136); BILIRUBIN,TOTAL 1.8 MG/DL (0.1-1.0); BUN/CREATININE RATIO 8; CALCIUM 7.3 MG/DL (8.5-10.1); CARBON DIOXIDE 21 MMOL/L (21-32); CHLORIDE 106 MMOL/L (98-107); CREATININE SERUM 0.62 MG/DL (0.60-1.30); GFR ESTIMATED > 60; GLUCOSE 93 MG/DL (70-105); POTASSIUM 3.5 MMOL/L (3.6-5.0); SODIUM 133 MMOL/L (135-145); TOTAL PROTEIN 6.7 GM/DL (6.4-8.2)
[2020-02-23 07:38] VITALS: BP 113/71
[2020-02-23] MEDS: NS IV 1000 ML 1,000 ML IV SCH (07:46)
--- NOTE | 2020-02-23 07:53 | Progress Note - Surgery ---
SADIE HERRERA MED STUDENT 02/23/20 0753: Subjective Date Seen by a Provider: Feb 23, 2020 Time Seen by a Provider: 07:37 Subjective/Events-last exam Patient seen and examined. He reported severe abdominal pain after his colonoscopy that lasted for at least 5 hours last night, but it has subsided this morning. Pt stated he walked last night to attempt to relieve gas from abdomen which helped slightly. He has not had any bowel movements since procedure. He would like to know when he can go home. Objective Exam Vital Signs Date Time Temp Pulse Resp B/P (MAP) Pulse Ox O2 Delivery O2 Flow Rate FiO2 02/23/20 07:38 37.0 86 20 113/71 (85) 96 Room Air 02/23/20 04:00 37.5 74 20 120/74 (89) 94 Room Air 02/23/20 00:00 37.6 78 22 110/73 (85) 98 Room Air 02/22/20 20:00 97 Room Air 02/22/20 19:44 36.1 78 22 154/68 (96) 97 Room Air 02/22/20 16:44 36.0 66 20 153/68 (96) 95 Room Air 02/22/20 15:45 78 18 99 Room Air 02/22/20 13:00 36.5 80 16 131/71 (91) 100 Room Air 02/22/20 08:00 Room Air I & O 02/23/20 07:00 Intake Total 1700 ml Output Total 350 ml Balance 1350 ml Capillary Refill : Less Than 3 Seconds General Appearance: No Apparent Distress, WD/WN HEENT: PERRL/EOMI Respiratory: No Accessory Muscle Use, No Respiratory Distress, Inspiration (inspiratory wheezing), Wheezing (Slight expiratory wheeze in LLQ) Cardiovascular: Regular Rate, Rhythm, No Murmur Gastrointestinal: normal bowel sounds, non tender Extremity: Pedal Edema (Bilateral pedal edema 3+) Neurologic/Psychiatric: Alert, Oriented x3 Results Lab Laboratory Tests 02/23/20 05:34: White Blood Count 3.9L, Red Blood Count 2.67L, Hemoglobin 8.1L, Hematocrit 25L, Mean Corpuscular Volume 92, Mean Corpuscular Hemoglobin 30, Mean Corpuscular Hemoglobin Concent 33, Red Cell Distribution Width 20.0H, Platelet Count 59L, Mean Platelet Volume 10.7H, Neutrophils (%) (Auto) 54, Lymphocytes (%) (Auto) 28, Monocytes (%) (Auto) 14H, Eosinophils (%) (Auto) 4, Basophils (%) (Auto) 0, Neutrophils # (Auto) 2.1, Lymphocytes # (Auto) 1.1, Monocytes # (Auto) 0.6, Eosinophils # (Auto) 0.2, Basophils # (Auto) 0.0 02/23/20 05:43: Sodium Level 133L, Potassium Level 3.5L, Chloride Level 106, Carbon Dioxide Level 21, Anion Gap 6, Blood Urea Nitrogen 5L, Creatinine 0.62, Estimat Glomerular Filtration Rate > 60, BUN/Creatinine Ratio 8, Glucose Level 93, Calcium Level 7.3L, Corrected Calcium 9.1, Total Bilirubin 1.8H, Aspartate Amino Transf (AST/SGOT) 154H, Alanine Aminotransferase (ALT/SGPT) 33, Alkaline Phosphatase 118, Total Protein 6.7, Albumin 1.8L Microbiology 02/20/20 MRSA Screen - Final, Complete MRSA not isolated Assessment/Plan Assessment/Plan Assessment/Plan Anemia Melena Pt encouraged to continue walking this morning. Clinical Quality Measures DVT/VTE Risk/Contraindication: Risk Factor Score Per Nursin RFS Level Per Nursing on Admit: 4+=Very High DUDLEY MERRILL DO 02/23/20 0942: Subjective Time Seen by a Provider: 09:30 Subjective/Events-last exam Pt seen and examined, states he is doing better. Review of Systems Pulmonary: No Dyspnea, No Cough Cardiovascular: No: Chest Pain, Palpitations Gastrointestinal: No: Nausea Objective Exam General Appearance: No Apparent Distress, WD/WN, Obese Respiratory: No Accessory Muscle Use, No Respiratory Distress, Inspiration (inspiratory wheezing), Wheezing (Slight expiratory wheeze in LLQ) Cardiovascular: Regular Rate, Rhythm, No Murmur Gastrointestinal: soft, distended (secondary to body habitus), other (no fluid wave) Assessment/Plan Assessment/Plan Assessment/Plan Multiple Colon Polyps Duodenal ulcer Above probably causing his anemia, he had multiple polyps removed and biopsies done during EGD; most likely this is why his Hg is down slightly today. He can be d/c'd from my standpoint and I will see him as an outpt and go over pathology. Supervisory-Addendum Brief Verification & Attestation Participated in pt care: history, MDM, physical Personally performed: exam, history, MDM Care discussed with: Medical Student Procedures: n/a Verification and Attestation of Medical Student E/M Service A medical student performed and documented this service. I then reviewed and verified all information documented by the medical student and made modifications to such information, when appropriate. I personally performed a physical exam, medical decision making and then discussed any differences between the notes and made revisions as necessary to create one note. Dudley Merrill , 02/23/20 , 09:41 SADIE HERRERA MED STUDENT Feb 23, 2020 07:53 DUDLEY MERRILL DO Feb 23, 2020 09:42
--- NOTE | 2020-02-23 08:03 | OPERATIVE REPORT ---
DATE OF SERVICE: PREOPERATIVE DIAGNOSES: Anemia and melena as well as ascites and liver cirrhosis. POSTOPERATIVE DIAGNOSES: 1. Duodenal ulcer. 2. Severe gastritis. 3. Hiatal hernia. 4. Colon polyps. 5. Diverticula. 6. Internal hemorrhoids. PROCEDURES: 1. EGD with biopsy. 2. Colonoscopy with snare polypectomy. 3. Colonoscopy with tattooing. SURGEON: Dudley Garza DO DRAIN TILE MACHINE OPERATOR: Marcelina Ramey MS3 ANESTHESIA: IV sedation by the anesthesiologist. SPECIMEN: Duodenal biopsy, antral biopsy, body of stomach biopsy, GE junction biopsy as well as ascending colon polyp, descending colon polyp x4 and sigmoid colon polyp x2. BLOOD LOSS: Scant. FLUIDS: Per anesthesia. POSTOPERATIVE CONDITION: Stable. INDICATION FOR PROCEDURE: The patient is a 59-year-old male who has been having some melena and anemia and needed a workup. FINDINGS: The patient had what looked like a duodenal ulcer that was not actively bleeding. He also had some severe gastritis and he had a small hiatal hernia. In the colon, he had multiple large polyps. He also had diverticula and some internal hemorrhoids. PROCEDURE NOTE: After informed consent was obtained, the patient was brought to the endoscopy suite, placed in bed in left lateral decubitus position. He was administered IV sedation by the anesthesiologist who then monitored his vitals the entire time, heart rate, blood pressure and pulse ox and started with the EGD, placed the scope down the mouth through the esophagus into the stomach, noted some mild gastritis in the antrum with pushing the duodenum and the duodenum saw what looked like an ulcer, took a picture of this and then did a biopsy right near the ulcer. Pulled back and did a biopsy of the antrum, then retroflexed the scope and saw some very severe gastritis in the body of stomach, did a biopsy here. Also, saw a small hiatal hernia. Pulled the scope into the GE junction and did a biopsy of the GE junction, then pushed the scope back into the stomach, suctioned out the air and then pulled the scope up the esophagus and out the mouth. Switched camera, switched gloves, went down below, started the colonoscopy on the way in, noted some large polyps, I elected to get all the way to the cecum, pushed in to about 150 cm, able to get to the cecum and actually just outside the cecum, in the ascending colon saw small polyp, did a snare polypectomy of this, pushed into the cecum, took a picture of appendiceal orifice, noted the ileocecal valve and then slowly withdrew the scope insufflating the circumferential khoury looking the cecum, up the ascending colon to the hepatic flexure, then down the transverse colon, the splenic flexure, into the descending colon. In descending colon, saw a larger polyp, did snare polypectomy, able to suction this up and then saw another polyp that was actually almost looked like an inverted polyp like the polyp was going down the stalk and still growing out of the stalk, unable to get a snare around this, so did biopsy of this to take 2 pieces and then tattooed this area. Then kept pulled back a little bit further and saw two polyps in the descending colon, snared both of these and then I used a Germain Net grasped and then pulled the scope all the way out and then pushed the scope back in, saw another 2 sigmoid polyps, able to suction take these off with snare. Suctioned up to the scope and then pulled the scope completely out and then continued down into the rectum, retroflexed in the rectal vault and saw some small internal hemorrhoids as well as questionably some small polyps, took a picture and then removed the scope. The patient tolerated the procedure, recovered in endoscopy suite and then transferred back to his room. Job ID: [id number] DocumentID: [id number] Dictated Date: 02/22/2020 16:35:51 Pressroom Worker Date: 02/23/2020 03:21:21 Dictated By: DUDLEY GARZA DO
[2020-02-23] MEDS ORDERED: PANTOPRAZOLE 40 MG (PROTONIX) TAB PO SCH (09:00)
--- NOTE | 2020-02-23 11:42 | Discharge Summary ---
Diagnosis/Chief Complaint Date of Admission Feb 20, 2020 at 18:15 Date of Discharge Discharge Diagnosis Problems/Diagnosis: (1) Gastritis Assessment & Plan: 02/21: EGD done today with severe findings, start PPI Qualifiers: Qualified Codes: K29.20 - Alcoholic gastritis without bleeding Status: Acute (2) Colorectal polyps Assessment & Plan: 02/21: Colonoscopy done today with multiple polyps removed, pathology pending Status: Chronic (3) Cirrhosis of liver Assessment & Plan: 02/21: Discussed the need for EtOH cessation, offered ATS at [facility] Qualifiers: Status: Chronic (4) Bright red blood per rectum Status: Resolved Resolution Date/Time: 02/22/20 @ 21:11 (5) Ascites Qualifiers: Qualified Codes: K70.31 - Alcoholic cirrhosis of liver with ascites Status: Chronic (6) Normocytic anemia Assessment & Plan: 02/21: Hgb Stable today, will continue to monitor Status: Acute (7) Alcohol dependence Status: Chronic (8) Hypokalemia Assessment & Plan: - Replaced, repeat BMP in AM Status: Acute (9) Tobacco abuse Status: Chronic (10) DVT prophylaxis Assessment & Plan: - SCDs only due to acute GI bleeding Status: Acute Discharge Summary-Simple/Stand Discharge Physical Examination Allergies: Coded Allergies: NKANo Known Allergies (Verified Allergy, Mild, 02/21/20) Vitals & I&Os Vital Sign - Last 12Hours Date Time Temp Pulse Resp B/P (MAP) Pulse Ox O2 Delivery O2 Flow Rate FiO2 02/23/20 07:48 Room Air 02/23/20 07:38 37.0 86 20 113/71 (85) 96 Intake and Output 02/23/20 00:00 Intake Total 1400 ml Output Total 100 ml Balance 1300 ml Hospital Course See final discharge diagnosis. Radiology Reviewed Date of Exam:02/20/20 CT ABDOMEN/PELVIS W INDICATION: Abdominal and pelvic pain with blood in stool. TECHNIQUE: Multiple contiguous axial images were obtained through the abdomen and pelvis after administration of intravenous contrast. Auto Exposure Controls were utilized during the CT exam to meet ALARA standards for radiation dose reduction. COMPARISON: There is no prior study for comparison. FINDINGS: Visualized portions of the lung bases show calcified granuloma in the right lower lobe. There is some mild interstitial scarring in the lung bases. There is no consolidation or pleural fluid or free intraperitoneal air. There are diffuse degenerative findings in the lumbar spine with spondylolysis at L5 with grade 1 spondylolisthesis. The liver shows diffuse low-density change, compatible with fatty infiltration. The liver has a somewhat nodular contour, suggesting cirrhosis. There is no discrete focal liver mass. Gallbladder appears normal. The spleen is not appreciably enlarged and showed no focal lesions. The adrenals and kidneys and pancreas appear normal. There is a small amount of ascites around the liver and spleen and a trace of free fluid in the pelvis. There is no retroperitoneal mass or adenopathy. There is mild atherosclerotic change of the aortoiliac system without aneurysmal disease. There is no pelvic lymphadenopathy. Visualized bowel loops show no overt obstruction. There are uncomplicated sigmoid diverticula. There do appear to be diffuse mildly thickened loops of small bowel without obstruction. These findings may represent enteritis. The SMA and SMV and portal vein are patent. There is a recanalized umbilical vein, compatible with portal hypertension. IMPRESSION: There is mild ascites. The liver shows patchy areas of low density compatible with fatty infiltration as well as a nodular contour, suggesting cirrhosis. There is diffuse mild thickening of the small bowel loops which may represent enteritis, without obstruction. There are uncomplicated clonic diverticula. There is a recanalized umbilical vein compatible with portal hypertension. Incidental note made of spondylolysis at L5 with grade 1 spondylolisthesis. Dictated on workstation # [id number] Dict: 02/20/20 1747 Trans: 02/20/20 1759 [id number] [id number] Interpreted by: J LUIS JEAN-BAPTISTE MD Electronically signed by: Discharge Instructions to patient/family Please see electronic discharge instructions given to patient. Discharge Medications Reviewed and agree with Discharge Medication list on patient's Discharge Instruction sheet Clinical Quality Measures DVT/VTE Risk/Contraindication: Risk Factor Score Per Nursin RFS Level Per Nursing on Admit: 4+=Very High CHEY ZHENG MD Feb 23, 2020 11:42
[2020-02-23] MEDS ORDERED: PANT40TA3 PO (11:52)
--- NOTE | 2020-02-23 11:54 | Discharge Summary ---
Discharge Inst-[facility] Discharge Medications New, Converted or Re-Newed RX: Transmitted to Pharmacy New Medications: Pantoprazole Sodium (Pantoprazole Sodium) 40 Mg Tablet.dr 40 MG PO DAILY, #30 TAB Continued Medications: Furosemide (Lasix) 20 Mg Tablet 20 MG PO DAILY PRN for FLUID RETENTION, TAB Potassium Chloride (Potassium Chloride) 20 Meq Tablet.er 20 MEQ PO DAILY, TAB Discontinued Medications: Meloxicam (Meloxicam) 15 Mg Tablet 15 MG PO DAILY, TAB Patient Instructions Goal/Follow Up Appt: f/u with Dr Rojas next week Patient Instructions: - Discussed the importance of alcohol cessation and its role in his severe gastritis Activity & Diet Discharge Diet: Cardiac Diet Activity as Tolerated: Yes CHEY ZHENG MD Feb 23, 2020 11:53
[2020-02-23 12:32] VITALS: BP 113/71
--- NOTE | 2020-02-27 09:29 | Physician Query Clarification ---
PQ-Further Specificity Admission/Discharge Admission Date: Feb 20, 2020 at 18:15 Discharge Date: Feb 23, 2020 at 12:39 Dr. Sol, The medical record reflects the following clinical scenario: History/Risk Factors: Severe gastritis, cirrhosis w/ascites, polyps, duodenal ulcer, melena, anemia Clinical Findings: Hgb 11.1 > 8.1 Treatment: Monitor Question: Can you further specify the type of anemia per the clinical indicators above? Please document a response in the Progress Notes or Discharge Summary. 1. acute blood loss anemia 2. chronic blood loss anemia 3. Other, with explanation of the clinical findings. 4. Clinically undetermined, no explanation for the clinical findings. Please remember a lack of response to the above will prompt a phone page by CDI/Coding staff. In responding to this query, please exercise your independent professional judgment. The purpose of this communication is to more accurately reflect the complexity of your patients condition. The fact that a question is asked does not imply that any particular answer is desired or expected. Thank you for your timely response to this clarification. Requestors name: [email or web address] [email or web address] THIS PHYSICIAN QUERY FORM IS A PERMANENT PART OF THE MEDICAL RECORD CALLUM MCKEON Feb 27, 2020 09:29
== END 2020-02-23 12:39 | disposition home or self-care (01) | DRG 379 ==
LOC: EDUNIT# 16:16 → ER 16:17 → 4TH 18:15
PROVIDERS: ADMIT Internal Medicine; ATTEND Family Medicine
PROC: 0DB68ZX Excision of Stomach, Via Natural or Artificial Opening Endoscopic, Diagnostic (ICD-10-PCS; 2020-02-22)
PROC: 0DB48ZX Excision of Esophagogastric Junction, Via Natural or Artificial Opening Endoscopic, Diagnostic (ICD-10-PCS; 2020-02-22)
PROC: 0DBK8ZX Excision of Ascending Colon, Via Natural or Artificial Opening Endoscopic, Diagnostic (ICD-10-PCS; 2020-02-22)
PROC: 0DBM8ZX Excision of Descending Colon, Via Natural or Artificial Opening Endoscopic, Diagnostic (ICD-10-PCS; 2020-02-22)
PROC: 0DBN8ZX Excision of Sigmoid Colon, Via Natural or Artificial Opening Endoscopic, Diagnostic (ICD-10-PCS; 2020-02-22)
PROC: 0DB98ZX Excision of Duodenum, Via Natural or Artificial Opening Endoscopic, Diagnostic (ICD-10-PCS; principal; 2020-02-22 14:36)
PROC: 0DB78ZX Excision of Stomach, Pylorus, Via Natural or Artificial Opening Endoscopic, Diagnostic (ICD-10-PCS; 2020-02-22 14:36)
DX: K92.1 Melena (principal); K29.70 Gastritis, unspecified, without bleeding; K44.9 Diaphragmatic hernia without obstruction or gangrene; K26.9 Duodenal ulcer, unspecified as acute or chronic, without hemorrhage or perforation; K70.31 Alcoholic cirrhosis of liver with ascites; K63.5 Polyp of colon; K57.90 Diverticulosis of intestine, part unspecified, without perforation or abscess without bleeding; K64.8 Other hemorrhoids; E87.6 Hypokalemia; J44.9 Chronic obstructive pulmonary disease, unspecified; D64.9 Anemia, unspecified; F10.20 Alcohol dependence, uncomplicated; I10 Essential (primary) hypertension; M19.91 Primary osteoarthritis, unspecified site; F17.210 Nicotine dependence, cigarettes, uncomplicated; M54.9 Dorsalgia, unspecified
CPT/HCPCS: 36415; 74177; 80048; 80053; 80320; 82274; 83690; 83735; 84100; 85025; 85610; 85730; 86850; 86900; 86901; 87081; 87635; 88305; 88342; 93005; 93041; 94640; 96374